=== PATIENT | female | born 1945 | race Caucasian/White ===

== ENCOUNTER → 2016-07-08 | Outpatient (REF) | payer MEDICARE ==
[~2016-07-08] MED LIST: ASPI81TA11 PO; CALC600T21 PO; COUM2.5T11 PO; EPIN0.3I6 IJ; FERR325T3 PO; INDA125TA PO; LIPI10TA PO; LUNE3TAB48 PO; MOME50SP; SKEL-29 PO; SPIR25TA2 PO; TYLE500T78 PO; VALA1TAB PO; VICO5TAB16 PO; VITA-113 OR; ZOLO100T PO
[2016-07-08 12:16] LABS: MEAN CORPUSCULAR HEMOGLOBIN 30.4 pg (27.0-33.0); MEAN CORPUSCULAR HGB CONC 32.6 g/dl (32.0-36.5); RED CELL DISTRIBUTION WIDTH 14.9 % (11.5-14.5)
[2016-07-08 13:00] LABS: ALBUMIN/GLOBULIN RATIO 1.38 (1.00-1.93); ALKALINE PHOSPHATASE 90 U/L (45-117); ALT/SGPT 19 U/L (12-78); ANION GAP 6 MEQ/L (8-16); AST/SGOT 11 U/L (15-37); BILIRUBIN,TOTAL 0.6 MG/DL (0.2-1.0); BLOOD UREA NITROGEN 23 MG/DL (7-18); CALCIUM LEVEL 10.4 MG/DL (8.8-10.2); CARBON DIOXIDE LEVEL 31 MEQ/L (21-32); CHLORIDE LEVEL 108 MEQ/L (98-107); GLOMERULAR FILTRATION RATE > 60.0 (>45); GLUCOSE, FASTING 91 MG/DL (80-110); MAGNESIUM LEVEL 2.2 MG/DL (1.8-2.4); POTASSIUM SERUM 4.3 MEQ/L (3.5-5.1); SODIUM LEVEL 145 MEQ/L (136-145); TOTAL PROTEIN 6.9 GM/DL (6.4-8.2)
[2016-07-08 14:44] LABS: EOSINOPHILS 1 % (0-5)
== END ==
LOC: M SFHCPLAZ 09:21
PROVIDERS: ATTEND Family Medicine
DX: D72.820 Lymphocytosis (symptomatic) (principal); I10 Essential (primary) hypertension; R73.01 Impaired fasting glucose; E55.9 Vitamin D deficiency, unspecified

== ENCOUNTER → 2016-10-12 | Day surgery (SDC) | payer MEDICARE, OTHER ==
[~2016-10-12] VITALS: Ht 175.3 cm; Wt 113.4 kg
[~2016-10-12] MED LIST changes: +ACETAMINOPHEN 325 MG TAB PO PRN; +BSS with VANC/TOB/EPI for EYE CASES IR ONE; +CYCLOPENTOLATE 2% OPHTH SOLN As Ordered ONE; +CYCLOPENTOLATE 2% OPHTH SOLN OS ONE; +HEALON DUET (HEALON 10MG/ML 0.55ML & HEALON ENDOCOAT 30MG/ML 0.85ML) As Ordered ONE; +KETOROLAC 0.5% OPHTH SOLN OS ONE; +LIDOCAINE 1% SDV 5 ML VIAL As Ordered ONE; +LIDOCAINE 4% INJ 5 ML AMP OS ONE; +LIDOCAINE 4% INJ 5 ML AMP OU ONE; +MIDAZOLAM INJ 2 MG/2 ML VIAL (J2250) As Ordered ONE; +MOXIFLOXACIN IN BSS 0.25MG/0.25ML INTRACAMERAL INJ (OR EYE ONLY)(J2280) As Ordered ONE; +OFLOXACIN 0.3 % (OCUFLOX) OPTH SOL 5ML As Ordered ONE; +OFLOXACIN 0.3 % (OCUFLOX) OPTH SOL 5ML OS ONE; +PHENYLEPHRINE 2.5% OPHTH SOL 2ML As Ordered ONE; +PHENYLEPHRINE 2.5% OPHTH SOL 2ML OS ONE; +POVIDONE-IODINE 5% OPHTH PREP SOL 30ML As Ordered ONE; +PROPARACAINE 0.5% OPHTH SOL 15ML OS PRN; +TIZA2CAP3 PO; +TRIAMCINOLONE PRES FR 40 MG/ML 1ML(TRIESENCE)(OR EYE ONLY)(J3300 PER 1MG) As Ordered ONE; +TRIMETHOBENZAMIDE 300 MG CAP PO PRN; +TROPICAMIDE 1% OPHTH SOLN 2 ML As Ordered ONE; +TROPICAMIDE 1% OPHTH SOLN 2 ML OS ONE; +fentaNYL 100 MCG/2 ML INJECTION (J3010) As Ordered ONE
[2016-10-12 11:20] VITALS: BP 133/71
== END | disposition home or self-care (01) ==
LOC: M SDC 08:14
PROVIDERS: ATTEND Ophthalmology
DX: H26.9 Unspecified cataract (principal); I10 Essential (primary) hypertension; E78.5 Hyperlipidemia, unspecified; F41.9 Anxiety disorder, unspecified; F32.9 Major depressive disorder, single episode, unspecified; E55.9 Vitamin D deficiency, unspecified; R73.01 Impaired fasting glucose; M17.0 Bilateral primary osteoarthritis of knee; I50.32 Chronic diastolic (congestive) heart failure; I71.2 Thoracic aortic aneurysm, without rupture; E66.9 Obesity, unspecified; G47.33 Obstructive sleep apnea (adult) (pediatric); Z91.018 Allergy to other foods; M47.816 Spondylosis without myelopathy or radiculopathy, lumbar region; Z79.899 Other long term (current) drug therapy; Z79.82 Long term (current) use of aspirin; Z88.2 Allergy status to sulfonamides
CPT/HCPCS: 66984; 67515; J2250; J2280; J3010; J3300; V2632

== ENCOUNTER → 2016-10-25 | Outpatient (CLI) | payer OTHER ==
[~2016-10-25] MED LIST changes: -ACETAMINOPHEN 325 MG TAB PO PRN; -BSS with VANC/TOB/EPI for EYE CASES IR ONE; -CYCLOPENTOLATE 2% OPHTH SOLN As Ordered ONE; -CYCLOPENTOLATE 2% OPHTH SOLN OS ONE; -HEALON DUET (HEALON 10MG/ML 0.55ML & HEALON ENDOCOAT 30MG/ML 0.85ML) As Ordered ONE; -KETOROLAC 0.5% OPHTH SOLN OS ONE; -LIDOCAINE 1% SDV 5 ML VIAL As Ordered ONE; -LIDOCAINE 4% INJ 5 ML AMP OS ONE; -LIDOCAINE 4% INJ 5 ML AMP OU ONE; -MIDAZOLAM INJ 2 MG/2 ML VIAL (J2250) As Ordered ONE; -MOXIFLOXACIN IN BSS 0.25MG/0.25ML INTRACAMERAL INJ (OR EYE ONLY)(J2280) As Ordered ONE; -OFLOXACIN 0.3 % (OCUFLOX) OPTH SOL 5ML As Ordered ONE; -OFLOXACIN 0.3 % (OCUFLOX) OPTH SOL 5ML OS ONE; -PHENYLEPHRINE 2.5% OPHTH SOL 2ML As Ordered ONE; -PHENYLEPHRINE 2.5% OPHTH SOL 2ML OS ONE; -POVIDONE-IODINE 5% OPHTH PREP SOL 30ML As Ordered ONE; -PROPARACAINE 0.5% OPHTH SOL 15ML OS PRN; -TRIAMCINOLONE PRES FR 40 MG/ML 1ML(TRIESENCE)(OR EYE ONLY)(J3300 PER 1MG) As Ordered ONE; -TRIMETHOBENZAMIDE 300 MG CAP PO PRN; -TROPICAMIDE 1% OPHTH SOLN 2 ML As Ordered ONE; -TROPICAMIDE 1% OPHTH SOLN 2 ML OS ONE; -fentaNYL 100 MCG/2 ML INJECTION (J3010) As Ordered ONE
--- NOTE | 2016-10-25 11:05 | REPMRS ---
Patient History The patient states she has not had a clinical breast exam in over a year. Patient is postmenopausal, has history of cervical cancer at age 31, and is nulliparous. No known family history of cancer. Benign excisional biopsy of the left breast, 1970. Digital Woman Screen Mammo: October 25, 2016 - Exam #: [id number] Bilateral CC and MLO view(s) were taken. Technologist: Elizabeth Sanders, Technologist Prior study comparison: November 18, 2015, digital woman screen mammo performed at [facility] to [facility]. October 29, 2014, digital woman screen mammo performed at [facility] to [facility]. FINDINGS: There are scattered fibroglandular densities. There has been no change in the appearance of the mammogram from the prior studies. There is a mild amount of residual fibroglandular tissue which is fairly symmetric. There is no interval development of dominant mass, architectural distortion, or clustered microcalcification suggestive of malignancy. ASSESSMENT: BI-RADS/ACR category 1 mammogram. Negative. Recommendation Routine screening mammogram in 1 year (for women over age 40). This mammogram was interpreted with the aid of an FDA-approved computer-aided dectection system. Electronically Signed By: Tyson García MD 10/25/16 [id number]
== END ==
LOC: M WHC 08:49
PROVIDERS: ATTEND Family Medicine
DX: Z12.31 Encounter for screening mammogram for malignant neoplasm of breast (principal)

== ENCOUNTER → 2016-10-26 | Day surgery (SDC) | payer OTHER ==
[~2016-10-26] VITALS: Ht 175.3 cm; Wt 113.4 kg
[~2016-10-26] MED LIST changes: +ACETYLCHOLINE OPHTH SOLN 1% 2ML As Ordered ONE; +BSS with VANC/TOB/EPI for EYE CASES IR ONE; +CYCLOPENTOLATE 2% OPHTH SOLN OD ONE; +D5W/0.2% SODIUM CHLORIDE 250 ML IV ONE; +HEALON DUET (HEALON 10MG/ML 0.55ML & HEALON ENDOCOAT 30MG/ML 0.85ML) As Ordered ONE; +LIDOCAINE 1% SDV 5 ML VIAL As Ordered ONE; +LIDOCAINE 4% INJ 5 ML AMP OU ONE; +LIDOCAINE W/EPINEPHRINE 1% 20ML VIAL As Ordered ONE; +MIDAZOLAM INJ 2 MG/2 ML VIAL (J2250) As Ordered ONE; +MOXIFLOXACIN IN BSS 0.25MG/0.25ML INTRACAMERAL INJ (OR EYE ONLY)(J2280) As Ordered ONE; +OFLOXACIN 0.3 % (OCUFLOX) OPTH SOL 5ML OD ONE; +PHENYLEPHRINE 2.5% OPHTH SOL 2ML OD ONE; +POVIDONE-IODINE 5% OPHTH PREP SOL 30ML As Ordered ONE; +TRIAMCINOLONE PRES FR 40 MG/ML 1ML(TRIESENCE)(OR EYE ONLY)(J3300 PER 1MG) As Ordered ONE; +TROPICAMIDE 1% OPHTH SOLN 2 ML OD ONE; +fentaNYL 100 MCG/2 ML INJECTION (J3010) As Ordered ONE
[2016-10-26 08:05] VITALS: BP 145/81
== END | disposition home or self-care (01) ==
LOC: M SDC 05:59
PROVIDERS: ATTEND Ophthalmology
DX: H26.9 Unspecified cataract (principal); I10 Essential (primary) hypertension; E78.5 Hyperlipidemia, unspecified; F32.9 Major depressive disorder, single episode, unspecified; F41.9 Anxiety disorder, unspecified; Z79.82 Long term (current) use of aspirin; Z79.899 Other long term (current) drug therapy; Z87.891 Personal history of nicotine dependence
CPT/HCPCS: 66984; J2250; J2280; J3010; J3300; V2632

== ENCOUNTER → 2016-10-28 | Outpatient (REF) | payer OTHER ==
[~2016-10-28] MED LIST changes: -ACETYLCHOLINE OPHTH SOLN 1% 2ML As Ordered ONE; -BSS with VANC/TOB/EPI for EYE CASES IR ONE; -CYCLOPENTOLATE 2% OPHTH SOLN OD ONE; -D5W/0.2% SODIUM CHLORIDE 250 ML IV ONE; -HEALON DUET (HEALON 10MG/ML 0.55ML & HEALON ENDOCOAT 30MG/ML 0.85ML) As Ordered ONE; -LIDOCAINE 1% SDV 5 ML VIAL As Ordered ONE; -LIDOCAINE 4% INJ 5 ML AMP OU ONE; -LIDOCAINE W/EPINEPHRINE 1% 20ML VIAL As Ordered ONE; -MIDAZOLAM INJ 2 MG/2 ML VIAL (J2250) As Ordered ONE; -MOXIFLOXACIN IN BSS 0.25MG/0.25ML INTRACAMERAL INJ (OR EYE ONLY)(J2280) As Ordered ONE; -OFLOXACIN 0.3 % (OCUFLOX) OPTH SOL 5ML OD ONE; -PHENYLEPHRINE 2.5% OPHTH SOL 2ML OD ONE; -POVIDONE-IODINE 5% OPHTH PREP SOL 30ML As Ordered ONE; -TRIAMCINOLONE PRES FR 40 MG/ML 1ML(TRIESENCE)(OR EYE ONLY)(J3300 PER 1MG) As Ordered ONE; -TROPICAMIDE 1% OPHTH SOLN 2 ML OD ONE; -fentaNYL 100 MCG/2 ML INJECTION (J3010) As Ordered ONE
[2016-10-28 13:28] LABS: ALBUMIN 3.7 GM/DL (3.2-5.2); ALBUMIN/GLOBULIN RATIO 1.16 (1.00-1.93); ALKALINE PHOSPHATASE 78 U/L (45-117); ALT/SGPT 17 U/L (12-78); ANION GAP 7 MEQ/L (8-16); AST/SGOT 7 U/L (15-37); BILIRUBIN,TOTAL 0.6 MG/DL (0.2-1.0); BLOOD UREA NITROGEN 20 MG/DL (7-18); CALCIUM LEVEL 10.2 MG/DL (8.8-10.2); CARBON DIOXIDE LEVEL 30 MEQ/L (21-32); CHLORIDE LEVEL 104 MEQ/L (98-107); CHOLESTEROL LEVEL 139 MG/DL (<200); CREATININE FOR GFR 0.75 MG/DL (0.55-1.02); GLOMERULAR FILTRATION RATE > 60.0 (>45); GLUCOSE, FASTING 58 MG/DL (80-110); POTASSIUM SERUM 3.8 MEQ/L (3.5-5.1); SODIUM LEVEL 141 MEQ/L (136-145); TOTAL PROTEIN 6.9 GM/DL (6.4-8.2); TRIGLYCERIDES LEVEL 110 MG/DL (<150)
== END ==
LOC: M SFHCPLAZ 10:04
PROVIDERS: ATTEND Family Medicine
DX: E78.5 Hyperlipidemia, unspecified (principal); E55.9 Vitamin D deficiency, unspecified

== ENCOUNTER → 2016-10-29 | Outpatient (CLI) | payer OTHER ==
[~2016-10-29] MED LIST changes: +ISOVUE-370 76% 100ML VIAL (Q9967) As Ordered ONE
--- NOTE | 2016-10-30 08:42 | REP ---
CT CHEST WITH CONTRAST: HISTORY: Descending thoracic aortic aneurysm. COMPARISON: None. CONTRAST: 100 mL Isovue-370. The maximal AP dimension of the ascending aorta is 4.9 cm. The descending thoracic aorta is within normal limits. Calcific atherosclerotic changes are present. There is no mediastinal or hilar adenopathy. There are no pleural or pericardial effusions. There is a large and in fact huge hiatal hernia. The imaged upper abdomen shows a partially imaged abdominal aortic aneurysm with previous surgical intervention. The imaged osseous structures are within normal limits for the patient's age. Evaluation of the lung chong show curvilinear densities in the lung bases consistent with subsegmental atelectatic changes. There is also evidence of mild biapical pleural scarring. No spiculated lesions or significant nodules are present. IMPRESSION: There is ectasia of the ascending thoracic aorta as described above. It should be remembered that the ascending aorta has a wide variation in normalcy and this needs to be correlated clinically with appropriate followup. Large and in fact huge hiatal hernia. Other findings as described above. Signed by Sergio Hager DO 10/30/2016 09:21 A
== END ==
LOC: M RAD 14:57
PROVIDERS: ATTEND Family Medicine
DX: I71.2 Thoracic aortic aneurysm, without rupture (principal)
CPT/HCPCS: 71260; Q9967

== ENCOUNTER → 2016-11-12 | Outpatient (REF) | payer OTHER ==
[~2016-11-12] MED LIST changes: -ISOVUE-370 76% 100ML VIAL (Q9967) As Ordered ONE
[2016-11-12 13:45] LABS: MEAN CORPUSCULAR HEMOGLOBIN 32.3 pg (27.0-33.0); MEAN CORPUSCULAR HGB CONC 33.2 g/dl (32.0-36.5); MEAN CORPUSCULAR VOLUME 97.5 fl (80.0-96.0); RED CELL DISTRIBUTION WIDTH 13.5 % (11.5-14.5); WHITE BLOOD COUNT 6.9 K/mm3 (4.0-10.0)
[2016-11-12 13:53] LABS: ALBUMIN 3.7 GM/DL (3.2-5.2); ALBUMIN/GLOBULIN RATIO 1.16 (1.00-1.93); ALKALINE PHOSPHATASE 71 U/L (45-117); ALT/SGPT 17 U/L (12-78); ANION GAP 8 MEQ/L (8-16); AST/SGOT 9 U/L (15-37); BILIRUBIN,TOTAL 0.6 MG/DL (0.2-1.0); BLOOD UREA NITROGEN 23 MG/DL (7-18); CARBON DIOXIDE LEVEL 28 MEQ/L (21-32); CHLORIDE LEVEL 105 MEQ/L (98-107); CREATININE FOR GFR 0.77 MG/DL (0.55-1.02); GLOMERULAR FILTRATION RATE > 60.0 (>39); GLUCOSE, FASTING 77 MG/DL (83-110); MAGNESIUM LEVEL 2.4 MG/DL (1.8-2.4); SODIUM LEVEL 141 MEQ/L (136-145); TOTAL PROTEIN 6.9 GM/DL (6.4-8.2)
[2016-11-12 14:40] LABS: BANDS 1 % (< 11); EOSINOPHILS 1 % (0-5)
[2016-11-12 14:41] LABS: ANISOCYTOSIS 1+
== END ==
LOC: M SFHCPLAZ 10:49
PROVIDERS: ATTEND Family Medicine
DX: D72.820 Lymphocytosis (symptomatic) (principal); I10 Essential (primary) hypertension; R73.01 Impaired fasting glucose; E55.9 Vitamin D deficiency, unspecified

== ENCOUNTER → 2017-03-03 | Outpatient (REF) | payer OTHER ==
[~2017-03-03] MED LIST changes: +ASPI-101 PO; -ASPI81TA11 PO; +ASPI81TAEC PO; +ATOR1TAB21 PO; +B-1210009 PO; +CALC1TAB30 PO; -CALC600T21 PO; +CALC600T60 PO; +CLOP75TA2 PO; -COUM2.5T11 PO; +COUM2.5T17 PO; -EPIN0.3I6 IJ; +EPIN0.3I6 INJ; +ESZO1TAB3 PO; +LUNE3TAB36 PO; -LUNE3TAB48 PO; -SKEL-29 PO; +SKEL800T97 PO; -VALA1TAB PO; +VALA1TAB2 PO; +VITA1CAP40 PO
[2017-03-03 13:22] LABS: MEAN CORPUSCULAR HEMOGLOBIN 32.5 pg (27.0-33.0); MEAN CORPUSCULAR HGB CONC 34.4 g/dl (32.0-36.5); MEAN CORPUSCULAR VOLUME 94.4 fl (80.0-96.0); RED CELL DISTRIBUTION WIDTH 13.1 % (11.5-14.5); WHITE BLOOD COUNT 4.1 K/mm3 (4.0-10.0)
[2017-03-03 13:33] LABS: ALBUMIN 3.9 GM/DL (3.2-5.2); ALBUMIN/GLOBULIN RATIO 1.22 (1.00-1.93); ALKALINE PHOSPHATASE 81 U/L (45-117); ALT/SGPT 23 U/L (12-78); ANION GAP 8 MEQ/L (8-16); AST/SGOT 11 U/L (15-37); BILIRUBIN,TOTAL 0.5 MG/DL (0.2-1.0); BLOOD UREA NITROGEN 18 MG/DL (7-18); CALCIUM LEVEL 10.4 MG/DL (8.8-10.2); CARBON DIOXIDE LEVEL 29 MEQ/L (21-32); CHLORIDE LEVEL 108 MEQ/L (98-107); CHOLESTEROL LEVEL 145 MG/DL (<200); CREATININE FOR GFR 0.74 MG/DL (0.55-1.02); FERRITIN 61 NG/ML (8-252); GLOMERULAR FILTRATION RATE > 60.0 (>39); GLUCOSE, FASTING 89 MG/DL (83-110); MAGNESIUM LEVEL 2.2 MG/DL (1.8-2.4); PERCENT SATURATION 18.3 % (13.2-45.0); POTASSIUM SERUM 4.1 MEQ/L (3.5-5.1); SODIUM LEVEL 145 MEQ/L (136-145); TOTAL IRON BINDING CAPACITY 334 UG/DL (250-450); TOTAL PROTEIN 7.1 GM/DL (6.4-8.2); TRIGLYCERIDES LEVEL 139 MG/DL (<150)
[2017-03-03 14:15] LABS: EOSINOPHILS 3 % (0-5)
== END ==
LOC: M SFHCPLAZ 08:15
PROVIDERS: ATTEND Family Medicine
DX: D72.820 Lymphocytosis (symptomatic) (principal); E83.52 Hypercalcemia; D50.9 Iron deficiency anemia, unspecified; E78.5 Hyperlipidemia, unspecified

== ENCOUNTER 2017-03-08 18:50 | Observation (INO) | payer BC, OTHER ==
[~2017-03-08] VITALS: Ht 175.3 cm; Wt 113.1 kg
[~2017-03-08 18:50] MED LIST changes: -ASPI81TAEC PO; -ATOR1TAB21 PO; -B-1210009 PO; -CALC1TAB30 PO; -CLOP75TA2 PO; -ESZO1TAB3 PO; -VITA1CAP40 PO
[2017-03-08 19:39] LABS: BASO % 0.4 % (0.0-1.0); EOS # 0.1 K/mm3 (0.0-0.50); LARGE UNSTAINED CELL # 0.1 K/mm3 (0.0-0.4); LARGE UNSTAINED CELL % 2.4 % (0.0-4.0); LYMPH # 1.4 K/mm3 (1.5-4.5); MEAN CORPUSCULAR HEMOGLOBIN 31.4 pg (27.0-33.0); MEAN CORPUSCULAR HGB CONC 33.4 g/dl (32.0-36.5); MEAN CORPUSCULAR VOLUME 94.1 fl (80.0-96.0); MONO # 0.3 K/mm3 (0.0-0.8); MONO % 5.7 % (0.0-5.0); NEUTROPHILS # 2.7 K/mm3 (1.8-7.7); NEUTROPHILS % 60.5 % (36.0-66.0); PLATELET COUNT, AUTOMATED 190 k/mm3 (150-450); RED CELL DISTRIBUTION WIDTH 13.3 % (11.5-14.5); WHITE BLOOD COUNT 4.4 K/mm3 (4.0-10.0)
--- NOTE | 2017-03-08 19:42 | REP ---
Clinical: Altered mental status. Cerebrovascular accident. Comparison: 11/27/2010 . Findings: Age-related atrophy and microvascular ischemic changes are appreciated. The ventricles and sulci are symmetric. García-white differentiation is maintained. There is no evidence for acute intracranial hemorrhage, mass/mass effect, pathology or infarction. No extra-axial fluid collection. Calvarium is intact. Paranasal sinuses and mastoid air cells are clear. Impression: Age related atrophy and microvascular ischemic changes. No acute intracranial hemorrhage, infarction, or mass/mass effect. Signed by Kapil Douglass MD 03/08/2017 07:34 P
[2017-03-08 19:45] LABS: INR 1.02
--- NOTE | 2017-03-08 19:48 | REP ---
Clinical: Altered mental status. Comparison: 01/21/2016. Findings: Cardiomegaly is appreciated along with large hiatal hernia. Left lower lobe opacity cannot be excluded. Lung chong are otherwise stable and demonstrate chronic changes. No pneumothorax. Skeletal structures intact. Impression: Cardiomegaly and large hiatal hernia. Signed by Kapil Douglass MD 03/08/2017 07:40 P
[2017-03-08 20:01] LABS: ANION GAP 8 MEQ/L (8-16); BLOOD UREA NITROGEN 20 MG/DL (7-18); CARBON DIOXIDE LEVEL 28 MEQ/L (21-32); CHLORIDE LEVEL 108 MEQ/L (98-107); GLOMERULAR FILTRATION RATE > 60.0 (>39); GLUCOSE, FASTING 118 MG/DL (83-110); POTASSIUM SERUM 3.6 MEQ/L (3.5-5.1); SODIUM LEVEL 144 MEQ/L (136-145)
[2017-03-08] MEDS ORDERED: LABETALOL HCL 100 MG/20 ML VIAL IV STA (20:21)
[2017-03-08 20:27] VITALS: BP 172/110
[2017-03-08] MEDS ORDERED: CALC1TAB30 PO (20:56)
[2017-03-08] MEDS ORDERED: B-1210009 PO (20:56)
[2017-03-08] MEDS ORDERED: VITA1CAP40 PO (20:56)
[2017-03-08] MEDS ORDERED: ASPI81TAEC PO (20:56)
[2017-03-08] MEDS ORDERED: ESZO1TAB3 PO (20:56)
[2017-03-08] MEDS ORDERED: ASPIRIN 325 MG TAB PO ONE (21:00)
[2017-03-08] MEDS ORDERED: LORazepam 1 MG TAB PO STA (21:40)
[2017-03-08] MEDS ORDERED: **hydrALAZINE** 10 MG TAB PO PRN (22:00)
[2017-03-08] MEDS ORDERED: LORazepam 2 MG/ML VIAL (J2060) IV PRN (22:15)
--- NOTE | 2017-03-08 22:54 | HPE ---
DATE OF ADMISSION: 03/08/2017 PRIMARY CARE PROVIDER: Antoine Morgan MD HISTORY OF PRESENT ILLNESS: This patient is a 71-year-old female with a past medical history significant for hypertension, hypercholesterolemia, anxiety, and sleep apnea on continuous positive airway pressure (CPAP), who presented to [facility] on 03/08/2017, with acute onset of right-sided weakness. At approximately 6:15 p.m., while patient was feeding her dog, patient experienced acute onset of complete right-sided numbness and weakness. Patient sat on a chair and rested for 30 minutes and symptoms resolved. patient was brought to [facility] for further evaluation. While patient was in the emergency room, approximately 2 hours from the first episode, patient experienced another acute onset of right lower extremity weakness without numbness. That episode lasted approximately 10-15 minutes and symptoms resolved spontaneously. While patient was in the emergency room, patient was found to have severe significant hypertension with systolic greater than 180 and diastolic greater than 110. One dose of IV labetalol was given. Emergency room physician also contacted [facility] for stroke evaluation and one dose of aspirin 325 mg was given per recommendation. Hospitalist team was thencalled for admission. Patient stated she also complained of bilateral frontal dull like headache that started after 6:15 p.m. without visual or auditory changes and symptoms started to improve once patient arrived in the emergency room. Denies any associated symptoms. ALLERGIES: SULFA, NONSTEROIDAL ANTI-INFLAMMATORY DRUGS (NSAIDs). HOME MEDICATIONS: - aspirin 81 mg by mouth daily - Lipitor 10 mg by mouth nightly - vitamin B12 1000 mcg by mouth daily - vitamin D 50,000 units by mouth as directed - ferrous sulfate 325 mg by mouth daily - indapamide 1.25 mg by mouth daily - Zoloft 100 mg by mouth nightly - spironolactone 25 mg by mouth daily PAST MEDICAL HISTORY: 1. Symptomatic left knee osteoarthritis. 2. Hypertension. 3. Hypercholesterolemia. 4. Anxiety. 5. Sleep apnea, on CPAP. PAST SURGICAL HISTORY: 1. Right total knee arthroplasty in January 2007. 2. Total abdominal hysterectomy with bilateral salpingo-oophorectomy (KODI BSO) in 1996. 3. Abdominal aortic aneurysm repair in October 2014. SOCIAL HISTORY: Former smoker, quit many years ago. Drinks alcohol intermittently. Denies recreational drug use. REVIEW OF SYSTEMS: GENERAL: No fever, no chills. HEENT: No vision changes, no auditory changes. CARDIOVASCULAR: Persistent elevated high blood pressure without any chest pain or palpitations. At baseline, patient stated her blood pressure is normally well controlled. Patient sees Dr. Pastor in the outpatient setting for her blood pressure control. RESPIRATORY: No shortness of breath, no cough, no sputum production. GASTROINTESTINAL (GI): No nausea, no vomiting, no abdominal pain, no diarrhea. MUSCULOSKELETAL: Osteoarthritis of the bilateral knees. Currently not any joint pain or muscle pain. NEUROLOGICAL: Acute onset of right-sided weakness and numbness that occurred around 6:15 p.m. today, resolved within 30 minutes, and there was another acute episode of right lower leg weakness, resolved in 10-15 minutes. OBJECTIVE: VITAL SIGNS: Temperature is 98.1, pulse is 68, respirations 16, blood pressure 170/120, pulse oximetry 95% in room air. GENERAL: No sign of acute distress, anxious, alert and oriented times three. HEENT: Normocephalic, atraumatic. Extraocular motors grossly intact. CARDIOVASCULAR: Positive S1, S2, regular rate. LUNGS: Clear to auscultation bilaterally. ABDOMEN: Soft, nontender, nondistended. Bowel sounds present. No rebound, no guarding. EXTREMITIES: No edema. No sign of cyanosis. NEUROLOGICAL: Sensation to fine touch, gross motor strength 5/5. LABORATORY DATA: WBC 4.4, hemoglobin 15.1, hematocrit 45.3, platelet count 190. Sodium 144, potassium 3.6, chloride 108, carbon dioxide 28, BUN 20, creatinine 0.9, GFR greater than 60, fasting glucose 118, calcium 10, total CK 117, troponin I is less than 0.02. IMAGING STUDIES: CT of the head without contrast shows age-related atrophy and microvascular ischemic changes. No acute intracranial hemorrhage, infarction, mass or mass effect. ASSESSMENT AND PLAN: 1. Acute right-sided numbness and weakness. Patient was admitted to the progressive care unit (PCU) under observation status. Differential includes transient ischemic attack (TIA) versus hypertensive emergency. Patient had a negative CT. Will follow with MRI and MRA of the brain. The emergency room physician has contacted [facility] for acute stroke evaluation and patient was given one dose of aspirin per recommendation. Will follow with imaging report. For the patient's blood pressure, will continue with patient's blood pressure medication. Will start hydralazine with holding parameters. Patient was also given one dose of Ativan to control her anxiety. 2. Hypertension. At home, patient has been taking the thiazide diuretic and spironolactone. Currently, patient had hypertensive urgency/emergency. Will give hydralazine with holding parameters. If patient's anxiety is under control and patient continues to have persistent hypertension, we will change the blood pressure medication accordingly. 3. Hypercholesterolemia. Continue on Lipitor. 4. Anxiety. On Zoloft and patient has as needed Ativan. 5. Sleep apnea. On continuous positive airway pressure (CPAP). Patient will be on obstructive sleep apnea (JEANMARIE) protocol. Patient may use her own continuous positive airway pressure (CPAP). 6. Deep venous thrombosis (DVT) prophylaxis. On heparin. MTDD
[2017-03-09] VITALS (7 sets, daily range): BP systolic 120–141; BP diastolic 64–87
[2017-03-09] MEDS: HEPARIN SOD (PORCINE) 5000 UNITS/ML VIAL SC SCH ×4 (01:09→21:39)
[2017-03-09] MEDS: SERTRALINE 100 MG TAB PO SCH ×2 (01:10→21:39)
[2017-03-09] MEDS: ATORVASTATIN 10 MG TAB PO SCH ×2 (01:10→21:39)
[2017-03-09 07:24] LABS: MEAN CORPUSCULAR HEMOGLOBIN 31.5 pg (27.0-33.0); MEAN CORPUSCULAR HGB CONC 33.2 g/dl (32.0-36.5); MEAN CORPUSCULAR VOLUME 94.9 fl (80.0-96.0); RED CELL DISTRIBUTION WIDTH 13.5 % (11.5-14.5); WHITE BLOOD COUNT 4.7 K/mm3 (4.0-10.0)
[2017-03-09 07:49] LABS: ANION GAP 8 MEQ/L (8-16); BLOOD UREA NITROGEN 20 MG/DL (7-18); CALCIUM LEVEL 9.8 MG/DL (8.8-10.2); CARBON DIOXIDE LEVEL 27 MEQ/L (21-32); CHLORIDE LEVEL 108 MEQ/L (98-107); CREATININE FOR GFR 0.71 MG/DL (0.55-1.02); GLOMERULAR FILTRATION RATE > 60.0 (>39); GLUCOSE, FASTING 97 MG/DL (83-110); POTASSIUM SERUM 3.8 MEQ/L (3.5-5.1); SODIUM LEVEL 143 MEQ/L (136-145)
[2017-03-09] MEDS: FERROUS SULFATE 325MG TAB PO SCH (08:34)
[2017-03-09] MEDS: CYANOCOBALAMIN 500 MCG TAB PO SCH (08:34)
[2017-03-09] MEDS: INDAPAMIDE 1.25MG TABLET PO SCH (08:35)
[2017-03-09] MEDS: SPIRONOLACTONE 25 MG TAB PO SCH (08:35)
[2017-03-09] MEDS ORDERED: ASPIRIN 81 MG ENTERIC TAB PO SCH (09:00)
--- NOTE | 2017-03-09 12:20 | REP ---
MRA BRAIN WITHOUT CONTRAST: 03/09/2017. COMPARISON: CT brain 03/08/2017, MRI brain 03/09/2017. CLINICAL HISTORY: TIA/CVA symptoms. TECHNIQUE: 3-D [id number] gradient echo images with MIP reformatting and rotational display of the volume acquisitions about the longitudinal and horizontal axis of the brain. All source images are reviewed. FINDINGS: A dominant left vertebral artery contribution of the basilar artery is noted as anatomic variation. There is a mild stenosis in the mid basilar artery without significant stenosis or aneurysm elsewhere in the basilar. Both posterior cerebral arteries show origin from the basilar tip. They have symmetric supply to the posterior fossa. The right and left internal carotid arteries through the skull base to the carotid siphons are intact. There is some minor atherosclerotic disease in the left greater than right internal carotid in the carotid siphons. No stenosis or aneurysm there. Supraclinoid carotids were unremarkable. The right A1 and M1 segments and the anterior and middle cerebral artery branches visible on the right are unremarkable. The left supraclinoid carotid with A1 and M1 segments and the anterior and middle cerebral artery branches visible peripherally were also unremarkable. I do not see aneurysm or vessel cutoff. No vascular malformation. IMPRESSION: 1. Minor atherosclerotic disease in the bilateral carotid siphons, but no stenosis, aneurysm, vessel cutoff or vascular malformation. 2. Dominant left vertebral artery contribution to the basilar artery with some mild mid course basilar artery stenosis without aneurysm or other focal basilar artery finding. Posterior circulation symmetric and otherwise unremarkable. Signed by Antione Smiley MD 03/09/2017 04:18 P
[2017-03-09] MEDS: ACETAMINOPHEN TAB 650MG DOSE (2X325MG) PO PRN (12:28)
--- NOTE | 2017-03-09 12:38 | REP ---
MRI BRAIN WITHOUT CONTRAST: 03/09/2017. CLINICAL HISTORY: TIA/CVA symptoms. TECHNIQUE: Sagittal T1, axial T1, T2, FLAIR, gradient-echo and diffusion-weighted images with ADC mapping sequences provided. COMPARISON: MRA brain today, CT brain 03/08/2017, 11/27/2010, MRI brain 04/18/2009. FINDINGS: Lateral ventricles midline, symmetric and unchanged in size. I do not see any significant atrophy. Third and fourth ventricles were grossly intact. Basal ganglia symmetric with a few dilated perineural spaces of Virchow. There are scattered punctate subcortical and deep central white matter foci in the bilateral cerebral hemispheres as well. Some periventricular changes in these suggesting some mild chronic small vessel white matter changes. I do not see a vascular territory infarct, intracranial hemorrhage, mass or mass effect. On the diffusion weighted images and ADC mapping sequence, there is a hyperintense focus. Diffusion weighted images and ADC mapping sequences show no evidence of restricted water diffusion or acute ischemia. That shows bright signal on the diffusion and dark signal on the ADC mapping sequence in the high posterior right frontal subcortical region best seen on image 25 of the diffusion and ADC map sequences. I do not see other similar signal abnormalities. There are hyperintense T2 foci in the bilateral cerebral peduncle similar to the 2008 study representing some chronic white matter change in the brainstem. Gradient-echo images demonstrate no evidence of hemorrhage. The lindo-white junction differentiation was maintained. Cortical stripe preserved. There is no vascular territory infarct, hemorrhage, mass or mass effect. No mass, mass effect or edema. The cerebellum show a few punctate hyperintense T2 foci suggesting old ischemic change. No acute ischemia on the diffusion images there. Basal cisterns are intact. Seventh/eighth cranial nerve complexes symmetric and normal. Mastoids intact. Visualized sinuses show bilateral ethmoid sinus mucosal disease. The frontal, sphenoid and maxillary sinuses are clear. Orbits and contents symmetric and normal. The corpus callosum, optic chiasm and pituitary are unremarkable. IMPRESSION: 1. There are chronic small vessel white matter ischemic changes in subcortical white matter as described but there is also a small lacunar infarct, presumably acute, based on the hyperintense diffusion and dark signal on ADC mapping sequence at the subcortical region of the high posterior left frontal lobe paramedian region. No bleed. No vascular territory infarct, mass, mass effect, edema or other acute finding. 2. There are chronic changes with hyperintense T2 signal foci in the cerebral peduncles as well as a few in the cerebellar hemisphere suggesting old ischemic change. Signed by Antione Smiley MD 03/09/2017 04:18 P
--- NOTE | 2017-03-09 16:10 | IPNPDOC ---
Subjective Date Seen The patient was seen on 03/09/17. Subjective Chief Complaint/HPI The patient is a 71-year-old female admitted with a reason for visit of Hypertensive Urgency,Transient Ischemic Attack. Events since last encounter Patient states she feels back to normal this afternoon. She denies any acute complaints. Constitutional: Denies: Chills, Fever Eyes: Denies: Pain, Vision change ENT: Denies: Head Aches Skin: Denies: Rash Pulmonary: Denies: Dyspnea, Cough Cardiovascular: Denies: Chest Pain, Palpitations, Lt Headedness Gastrointestinal: Denies: Nausea, Vomiting, Abdominal Pain Genitourinary: Denies: Dysuria Neurological: Denies: Weakness, Numbness, Change in speech, Confusion Objective Physical Examination General Exam: Positive: Alert, Cooperative, No Acute Distress Eye Exam: Positive: PERRLA ENT Exam: Positive: Atraumatic, Mucous membr. moist/pink Chest Exam: Positive: Clear to auscultation, Normal air movement Heart Exam: Positive: Rate Normal, Regular Rhythm, Normal S1, Normal S2 Abdomen Exam: Positive: Normal bowel sounds, Soft, Negative: Tenderness Extremity Exam: Negative: Edema Skin Exam: Positive: Nl turgor and temperature, Negative: Rash Neuro Exam: Positive: Normal Speech, Strength at 5/5 X4 ext, Normal Tone, Sensation Intact, Cranial Nerves 3-12 NL Psych Exam: Positive: Mental status NL, Mood NL, Oriented x 3 Assessment /Plan Problems (1) TIA (transient ischemic attack) Status: Acute Response to Treatment: Stable Problem Text: Neurologic symptoms resolved rapidly and Neurologic exam is normal today. - MRI done yesterday showed "Small lacunar infarct in subcortical region of high posterior left frontal lobe paramedian region" and "chronic small vessel white matter ischemic changes"; MRA was unremarkable. - Patient was previously taking aspirin 81 mg daily and she tolerated this well without dyspepsia. Therefore, I recommended increasing aspirin to 325 mg daily. I also advised patient that Dr. Morgan (her PCP) may or may not wish to exchange this for Plavix or add Plavix in the future. - Monitor on telemetry overnight; likely discharge tomorrow (2) Hypertension Status: Chronic Response to Treatment: Stable Problem Text: Patient is currently on her home indapamide and spironolactone; hydralazine PRN was added upon admission but she has not required this since admission. (3) Anxiety Status: Chronic Response to Treatment: Stable Problem Text: Continue home sertraline. Lorazepam PRN was added upon admission but she has not needed this and did not appear anxious today upon exam. (4) Hyperlipidemia Status: Chronic Response to Treatment: Stable Problem Text: Continue lipitor (5) JEANMARIE (obstructive sleep apnea) Status: Chronic Response to Treatment: Stable Problem Text: Continue CPAP Plan/VTE VTE Prophylaxis Ordered?: Yes (heparin) VS, I&O, 24H, Fishbone Vital Signs/I&O Vital Signs Date Time Temp Pulse Resp B/P (MAP) Pulse Ox O2 Delivery O2 Flow Rate FiO2 03/09/17 12:00 96.9 58 18 130/64 (86) 96 Room Air 03/09/17 08:00 2.0 I&O- Last 24 Hours up to 6 AM 03/09/17 06:00 Intake Total 240 ml Output Total 1350 ml Balance -1110 ml Laboratory Data 24H LABS Laboratory Tests 2 03/08/17 19:21: White Blood Count 4.4, Red Blood Count 4.82, Hemoglobin 15.1, Hematocrit 45.3, Mean Corpuscular Volume 94.1, Mean Corpuscular Hemoglobin 31.4, Mean Corpuscular Hemoglobin Concent 33.4, Red Cell Distribution Width 13.3, Platelet Count 190, Neutrophils (%) (Auto) 60.5, Lymphocytes (%) (Auto) 28.0, Monocytes ( %) (Auto) 5.7H, Eosinophils (%) (Auto) 3.0, Basophils (%) (Auto) 0.4, Neutrophils # (Auto) 2.7, Lymphocytes # (Auto) 1.4L, Monocytes # (Auto) 0.3, Eosinophils # (Auto) 0.1, Basophils # (Auto) 0.0, Large Unclassified Cells % 2.4 , Large Unclassified Cells # 0.1, Prothrombin Time 13.5, Prothromb Time International Ratio 1.02, Activated Partial Thromboplast Time 23.6L, Anion Gap 8 , Glomerular Filtration Rate > 60.0, Blood Urea Nitrogen 20H, Creatinine 0.90, Sodium Level 144, Potassium Level 3.6, Chloride Level 108H, Carbon Dioxide Level 28, Calcium Level 10.0, Total Creatine Kinase 117, Creatine Kinase MB 2.6 , Creatine Kinase MB Relative Index 2.22, Troponin I < 0.02 03/08/17 19:44: Bedside Glucose (Misc Panel) 112H 03/09/17 07:00: Anion Gap 8, Glomerular Filtration Rate > 60.0, Blood Urea Nitrogen 20H, Creatinine 0.71, Sodium Level 143, Potassium Level 3.8, Chloride Level 108H, Carbon Dioxide Level 27, Calcium Level 9.8 CBC/BMP Laboratory Tests 03/08/17 19:21 Red Blood Count 4.82, Mean Corpuscular Volume 94.1, Mean Corpuscular Hemoglobin 31.4, Mean Corpuscular Hemoglobin Concent 33.4, Red Cell Distribution Width 13.3 , Neutrophils (%) (Auto) 60.5, Lymphocytes (%) (Auto) 28.0, Monocytes (%) (Auto ) 5.7 H, Eosinophils (%) (Auto) 3.0, Basophils (%) (Auto) 0.4, Neutrophils # ( Auto) 2.7, Lymphocytes # (Auto) 1.4 L, Monocytes # (Auto) 0.3, Eosinophils # ( Auto) 0.1, Basophils # (Auto) 0.0, Calcium Level 10.0, Total Creatine Kinase 117 03/09/17 07:00 Red Blood Count 4.52, Mean Corpuscular Volume 94.9, Mean Corpuscular Hemoglobin 31.5, Mean Corpuscular Hemoglobin Concent 33.2, Red Cell Distribution Width 13.5 , Calcium Level 9.8 MARLEEN LOPES MD Mar 09, 2017 16:10
[2017-03-10 03:58] VITALS: BP 150/88
[2017-03-10 05:30] LABS: MEAN CORPUSCULAR HEMOGLOBIN 32.1 pg (27.0-33.0); MEAN CORPUSCULAR HGB CONC 33.9 g/dl (32.0-36.5); MEAN CORPUSCULAR VOLUME 94.5 fl (80.0-96.0); RED CELL DISTRIBUTION WIDTH 13.2 % (11.5-14.5); WHITE BLOOD COUNT 4.5 K/mm3 (4.0-10.0)
[2017-03-10] MEDS: HEPARIN SOD (PORCINE) 5000 UNITS/ML VIAL SC SCH ×2 (05:32→14:46)
[2017-03-10] MEDS: ACETAMINOPHEN TAB 650MG DOSE (2X325MG) PO PRN (05:35)
[2017-03-10 05:43] LABS: ANION GAP 7 MEQ/L (8-16); BLOOD UREA NITROGEN 17 MG/DL (7-18); CALCIUM LEVEL 10.1 MG/DL (8.8-10.2); CARBON DIOXIDE LEVEL 28 MEQ/L (21-32); CHLORIDE LEVEL 108 MEQ/L (98-107); CREATININE FOR GFR 0.75 MG/DL (0.55-1.02); GLOMERULAR FILTRATION RATE > 60.0 (>39); GLUCOSE, FASTING 103 MG/DL (83-110); SODIUM LEVEL 143 MEQ/L (136-145)
--- NOTE | 2017-03-10 07:15 | ECGEPIP ---
Stationary ECG Study [facility] - ED Test Date: 2017-03-08 Pat Name: KAYLEN DAVIS Department: Room: [place] [address] Gender: F [employer]: mr GRB: 1945 Requested By: ALDAIR Eller Order Number: [id number] Reading MD: Nicki Dc Measurements Intervals [place] Rate: 87 P: 201 AR: 104 QRS: -54 QRSD: 99 T: 59 QT: 361 QTc: 436 Interpretive Statements SINUS RHYTHM WITH SHORT AR INTERVAL WITH OCCASIONAL SUPRAVENTRICULAR PREMATURE COMPLEXES INCOMPLETE RIGHT BUNDLE BRANCH BLOCK LEFT ANTERIOR FASCICULAR BLOCK MINIMAL ST DEPRESSION CLINICAL CORRELATION COMPARISON 01/21/16 Electronically Signed On 03-10-2017 7:15:11 EDT by Nicki Dc
[2017-03-10 08:00] VITALS: BP 114/72
[2017-03-10] MEDS: FERROUS SULFATE 325MG TAB PO SCH (08:58)
[2017-03-10] MEDS: SPIRONOLACTONE 25 MG TAB PO SCH (08:58)
[2017-03-10] MEDS: INDAPAMIDE 1.25MG TABLET PO SCH (08:58)
[2017-03-10] MEDS: CYANOCOBALAMIN 500 MCG TAB PO SCH (08:58)
[2017-03-10] MEDS ORDERED: ASPIRIN 325 MG TAB PO SCH (09:00)
[2017-03-10] MEDS ORDERED: CLOPIDOGREL 75 MG TAB PO SCH (09:00)
[2017-03-10] MEDS ORDERED: ATOR1TAB21 PO (11:09)
[2017-03-10] MEDS ORDERED: CLOP75TA2 PO (11:09)
--- NOTE | 2017-03-10 11:33 | DSES ---
DATE OF ADMISSION: 03/08/2017 DATE OF DISCHARGE: 03/10/2017 PRIMARY CARE PHYSICIAN: Antoine Morgan MD HISTORY OF PRESENT ILLNESS: 71-year-old female with a past medical history significant for hypertension, hypercholesterolemia, anxiety and sleep apnea on CPAP who presented to [facility] with acute onset of right sided weakness. While the patient was in the emergency department, approximately 2 hours from her first episode, she experience another acute onset of right lower extremity weakness without numbness. This episode lasted approximately 10-15 minutes and symptoms resolved spontaneously. The patient was noted to have significantly elevated blood pressure, systolic greater than 180 and a diastolic greater than 110. She was given one dose of IV labetalol as well as aspirin 325 mg per [facility] for stroke evaluation. The patient was admitted to the family medicine service, was kept in progressive care unit (PCU) status with monitoring. HOSPITAL COURSE: The patient has had no cardiac arrhythmias during her hospitalization. Labs have remained stable. She is status post MRI of the brain, which proves chronic small vessel matter ischemic changes and a small lacunar infarct. The patient has no residual deficits. She is alert and oriented times three. She is able to ambulate to the bathroom on her own, brush her teeth, brush her hair and care for herself. The patient's blood pressures have remained stable without need for any IV labetalol. Throughout her hospitalization she has remained on her home dosing antihypertensives and has tolerated that well. ASSESSMENT: 1. Small lacunar infarct with right lower extremity weakness. 2. Hypertensive urgency. SECONDARY DIAGNOSES: Include: 1. Hypercholesterolemia. 2. Anxiety. 3. Sleep apnea. PLAN: Patient will be discharged to home on a 2 gram sodium diet. She will followup with primary care physician, Dr. Morgan or Aleyda Ayala within the next 5-7 days. She will have a carotid ultrasound completed prior to her discharge and any abnormalities will be followed up by primary care physician. MEDICATIONS: Are as follows: - atorvastatin 80 mg one by mouth daily - Plavix 75 mg one by mouth daily - vitamin B12 1000 mcg by mouth daily - epinephrine injection as needed for anaphylaxis - vitamin D 50,000 international units by mouth every other Tuesday - eszopiclone 3 mg by mouth at bedtime as needed for sleep - ferrous sulfate 325 mg by mouth daily - indapamide 1.25 mg by mouth daily - sertraline 100 mg by mouth at bedtime - spironolactone 25 mg by mouth daily - tizanidine 2 mg by mouth twice a day as needed for muscle spasms - valacyclovir 1 gram by mouth every 12 hours as needed for pain The patient is discharged in stable and satisfactory condition with no further questions at the time of discharge.
[2017-03-10 11:46] VITALS: BP 126/82
[2017-03-10] MEDS ORDERED: INFLUENZA VIRUS VACCINE HIGH DOSE 0.5 ML SYRINGE (90662) IM ONE (12:15)
--- NOTE | 2017-03-10 14:42 | REP ---
Bilateral carotid artery duplex ultrasound: Peak flow velocity analysis: RIGHT LEFT ICA. Peak flow velocity cm/sec 25 30 ICA Diastolic flow velocity cm/sec 10 14 ICA/CCA Ratio 0.43 0.19 ECA Peak flow velocity cm/sec 57 31 CCA Peak flow velocity cm/sec 58 157 There is intimal thickening in the distal common carotid arteries, bulbs and internal carotid and external carotid arteries. No focal stenoses are identified. The peak flow velocities in the right CCA, bilateral ECA and bilateral ICA appear low. This is of uncertain significance. However, consideration might be given to carotid CTA or MRA for evaluation of the aortic arch and proximal common carotid arteries. There is antegrade flow in the vertebral arteries bilaterally. Signed by Tyson Martinez MD 03/10/2017 02:33 P
[2017-03-10] MEDS ORDERED: ATORVASTATIN 20 MG TAB PO SCH (21:00)
[2017-03-12] MEDS ORDERED: VITAMIN D 50,000 UNITS CAPSULE (ERGOCALCIFEROL 1.25MG) PO SCH (09:00)
== END 2017-03-10 15:36 | disposition home or self-care (01) ==
LOC: M ED 18:50 → M ED INP 21:47 → M PCU 03-09 18:00
PROVIDERS: ADMIT Internal Medicine; ATTEND Family Medicine
DX: I63.8 Other cerebral infarction (principal); I16.0 Hypertensive urgency; R53.1 Weakness; I10 Essential (primary) hypertension; E78.00 Pure hypercholesterolemia, unspecified; G47.30 Sleep apnea, unspecified; F41.9 Anxiety disorder, unspecified; Z79.02 Long term (current) use of antithrombotics/antiplatelets; Z87.891 Personal history of nicotine dependence; Z79.899 Other long term (current) drug therapy; Z88.2 Allergy status to sulfonamides; Z79.82 Long term (current) use of aspirin
CPT/HCPCS: 36415; 70450; 70544; 70551; 71010; 80048; 82550; 82553; 84484; 85025; 85027; 85610; 85730; 86850; 86900; 86901; 93005; 93041; 93880; 94760; 96374; 99285; G0008; G0378

== ENCOUNTER → 2017-03-28 | Outpatient (CLI) | payer OTHER ==
[~2017-03-28] MED LIST changes: +ASPI81TAEC PO; +ATOR1TAB21 PO; +B-1210009 PO; +CALC1TAB30 PO; +CLOP75TA2 PO; +ESZO1TAB3 PO; +VITA1CAP40 PO
--- NOTE | 2017-03-28 09:50 | REP ---
Abdominal aorta ultrasound: Abdominal aorta ultrasound: Abdominal Aortic Measurements are as follows: Proximal 2.1 cm AP 2.7 cm TRV Renal Artery Level 2.6 cm AP 2.8 cm TRV Mid Aorta 4.7 cm AP 5.2 cm TRV Distal Aorta 4.1 cm AP 3.4 cm TRV R Iliac Artery 1.3 cm AP 1.5 cm TRV L Iliac Artery at 1.1 cm AP 1.6 cm TRV There is an aortobi-iliac endovascular stent. There is an abdominal aortic aneurysm maximally measuring 5.2 cm. On the most recent prior study dated 09/26/2014, this aneurysm measured 5.1 cm maximally. By ultrasound today the aneurysm measures 10 cm craniocaudad length. On the prior ultrasound it measured 5.9 cm craniocaudad length. However, sagittal views of the aneurysm are difficult to evaluate because of the endovascular stent. Follow-up CT might be considered for confirmation. Signed by Tyson Martinez MD 03/28/2017 09:42 A
== END ==
LOC: M RAD 08:28
PROVIDERS: ATTEND Surgery Vascular Surgery
DX: I71.4 Abdominal aortic aneurysm, without rupture (principal)

== ENCOUNTER → 2017-03-29 | Outpatient (CLI) | payer OTHER ==
[~2017-03-29] MED LIST changes: +ISOVUE-370 76% 100ML VIAL (Q9967) As Ordered ONE
--- NOTE | 2017-03-29 09:23 | REP ---
CT of the chest with IV contrast, CT pulmonary angiography: There are no emboli in the pulmonary trunk or central pulmonary arteries. There are no emboli in the pulmonary lobe or segment branches. There are no infiltrates or effusions. There are no masses or nodules. There is a large fixed retrocardiac hiatal hernia. This is unchanged from a CT of the abdomen dated 10/09/2008. The thoracic aorta is unremarkable. Cardiac size is enlarged. There is no pericardial effusion. The visualized upper abdominal contents are unremarkable except for a hepatic right lobe 19 mm cyst, unchanged from the 10/09/2008 CT of the abdomen. I suspect there is an endovascular stent in the abdominal aorta. Only the superior most portion of the stent is visible on this chest CT. Impression: There are no pulmonary emboli. No acute cardiopulmonary findings. No masses or nodules. No adenopathy. Cardiomegaly. There is a fixed large retrocardiac hiatal hernia. Endovascular stent in the abdominal aorta. Hepatic cyst. Signed by Tyson Martinez MD 03/29/2017 09:14 A
== END ==
LOC: M RAD 08:26
PROVIDERS: ATTEND Family Medicine
DX: I63.9 Cerebral infarction, unspecified (principal)
CPT/HCPCS: 71275; Q9967

== ENCOUNTER → 2017-07-08 | Outpatient (REF) | payer OTHER ==
[2017-07-08 13:07] LABS: HEMATOCRIT 43.5 % (36.0-47.0); HEMOGLOBIN 14.1 g/dl (12.0-16.0); RED BLOOD COUNT 4.52 10^6/uL (4.00-5.40); WHITE BLOOD COUNT 4.6 10^3/uL (4.0-10.0)
[2017-07-08 13:08] LABS: BASO % 0.7 % (0.0-1.0); EOS # 0.2 10^3/uL (0.0-0.50); EOS % 5.2 % (0.0-3.0); IMMATURE GRANULOCYTE % 0.2 % (0-0); LYMPH # 1.2 10^3/uL (1.5-4.5); MEAN CORPUSCULAR HEMOGLOBIN 31.2 pg (27.0-33.0); MEAN CORPUSCULAR HGB CONC 32.4 g/dl (32.0-36.5); MEAN CORPUSCULAR VOLUME 96.2 fl (80.0-96.0); MONO # 0.4 10^3/uL (0.0-0.8); MONO % 9.1 % (0.0-5.0); NEUTROPHILS # 2.8 10^3/uL (1.8-7.7); NEUTROPHILS % 59.8 % (36.0-66.0); PLATELET COUNT, AUTOMATED 195 10^3/uL (150-450); RED CELL DISTRIBUTION WIDTH 13.4 % (11.5-14.5)
[2017-07-08 13:14] LABS: HEMATOCRIT 43.5 % (36.0-47.0)
[2017-07-08 13:33] LABS: ALBUMIN/GLOBULIN RATIO 1.38 (1.00-1.93); ALKALINE PHOSPHATASE 89 U/L (45-117); ALT/SGPT 24 U/L (12-78); ANION GAP 5 MEQ/L (8-16); AST/SGOT 13 U/L (7-37); BILIRUBIN,TOTAL 0.5 MG/DL (0.2-1.0); BLOOD UREA NITROGEN 18 MG/DL (7-18); C REACTIVE PROTEIN QUANTITATIV < 0.30 MG/DL (0.00-0.30); CARBON DIOXIDE LEVEL 30 MEQ/L (21-32); CHLORIDE LEVEL 109 MEQ/L (98-107); CHOLESTEROL LEVEL 125 MG/DL (<200); CHOLESTEROL RISK RATIO 2.272 (<5); CPK CREATINE PHOSPHOKINASE 56 U/L (26-192); CREATININE FOR GFR 0.68 MG/DL (0.55-1.02); FREE T4 1.06 NG/DL (0.76-1.46); GLOMERULAR FILTRATION RATE > 60.0 (>39); GLUCOSE, FASTING 96 MG/DL (83-110); HDL CHOLESTEROL 55 MG/DL (>40); LDL CHOLESTEROL 47.8 MG/DL (<100); NON-HDL-C 70 MG/DL; POTASSIUM SERUM 4.7 MEQ/L (3.5-5.1); SODIUM LEVEL 144 MEQ/L (136-145); TOTAL PROTEIN 6.9 GM/DL (6.4-8.2); TRIGLYCERIDES LEVEL 111 MG/DL (<150)
[2017-07-08 16:51] LABS: TOTAL 25(OH) VITAMIN D 46.4 NG/ML (30.0-100.0); VITAMIN B12 LEVEL 914 PG/ML (247-911)
[2017-07-08 16:52] LABS: PTH INTACT 90.5 PG/ML (14.0-72.0)
[2017-07-08 18:57] LABS: PRETREATED FOLATE FOR RBCFOL 12.5 NG/ML; RBC FOLATE 603.4 NG/ML (280-791)
== END ==
LOC: M SFHCPLAZ 08:52
DX: E53.8 Deficiency of other specified B group vitamins (principal); E78.5 Hyperlipidemia, unspecified; E83.52 Hypercalcemia
CPT/HCPCS: 82550

== ENCOUNTER → 2017-10-18 | Outpatient (REF) | payer OTHER ==
[2017-10-18 12:19] LABS: BASO % 0.5 % (0.0-1.0); EOS # 0.1 10^3/uL (0.0-0.50); EOS % 3.1 % (0.0-3.0); HEMOGLOBIN 14.4 g/dl (12.0-15.5); IMMATURE GRANULOCYTE % 0.2 % (0-3.0); LYMPH # 1.1 10^3/uL (1.5-4.5); LYMPH % 26.1 % (24.0-44.0); MEAN CORPUSCULAR HEMOGLOBIN 31.6 pg (27.0-33.0); MEAN CORPUSCULAR HGB CONC 32.7 g/dl (32.0-36.5); MEAN CORPUSCULAR VOLUME 96.7 fl (80.0-96.0); MONO # 0.4 10^3/uL (0.0-0.8); MONO % 9.3 % (0.0-5.0); NEUTROPHILS # 2.6 10^3/uL (1.8-7.7); NEUTROPHILS % 60.8 % (36.0-66.0); PLATELET COUNT, AUTOMATED 173 10^3/uL (150-450); RED BLOOD COUNT 4.55 10^6/uL (4.00-5.40); RED CELL DISTRIBUTION WIDTH 13.4 % (11.5-14.5); RETIC HEMOGLOBIN EQUIVALENT 36.9 pg (24-36); RETICULOCYTE # 64.6 10^9/L (17-77); RETICULOCYTE % 1.4 % (0.5-1.5); WHITE BLOOD COUNT 4.2 10^3/uL (4.0-10.0)
[2017-10-18 12:24] LABS: APPEARANCE, URINE CLEAR (CLEAR); BACTERIA, URINE AUTO NEGATIVE (NEGATIVE); BILIRUBIN, URINE AUTO NEGATIVE (NEGATIVE); BLOOD, URINE BLOOD NEGATIVE (NEGATIVE); COLOR, URINE YELLOW (YELLOW); GLUCOSE, URINE (UA) AUTO NEGATIVE (NEGATIVE); KETONE, URINE AUTO NEGATIVE (NEGATIVE); LEUKOCYTE ESTERASE, URINE AUTO NEGATIVE (NEGATIVE); MUCUS, URINE SMALL (NEGATIVE); NITRITE, URINE AUTO NEGATIVE (NEGATIVE); PROTEIN, URINE AUTO NEGATIVE (NEGATIVE); RBC, URINE AUTO 0 /HPF (0-3); SPECIFIC GRAVITY URINE AUTO 1.016 (1.002-1.035); SQUAMOUS EPITHELIAL CELL UR AU 1 /HPF (0-6); UROBILINOGEN, URINE AUTO 0.2 mg/dL (0.0-2.0); WBC, URINE AUTO 1 /HPF (0-3)
[2017-10-18 12:35] LABS: ALBUMIN 3.8 GM/DL (3.2-5.2); ALBUMIN/GLOBULIN RATIO 1.19 (1.00-1.93); ALKALINE PHOSPHATASE 90 U/L (45-117); ALT/SGPT 23 U/L (12-78); ANION GAP 5 MEQ/L (8-16); AST/SGOT 13 U/L (7-37); BILIRUBIN,TOTAL 0.5 MG/DL (0.2-1.0); BLOOD UREA NITROGEN 18 MG/DL (7-18); CARBON DIOXIDE LEVEL 29 MEQ/L (21-32); CHLORIDE LEVEL 110 MEQ/L (98-107); CREATININE FOR GFR 0.73 MG/DL (0.55-1.30); GLOMERULAR FILTRATION RATE > 60.0 (>39); GLUCOSE, FASTING 91 MG/DL (70-100); POTASSIUM SERUM 4.4 MEQ/L (3.5-5.1); SODIUM LEVEL 144 MEQ/L (136-145)
[2017-10-18 12:45] LABS: CREATININE, URINE 94.6 MG/DL; MALB URINE SIEMENS 7.2 MG/L; MAU/CREAT RATIO 7.6 MCG/MG (0.0-30.0)
[2017-10-18 14:06] LABS: ESTIMATED AVERAGE GLUCOSE 108 MG/DL (60-110); HEMOGLOBIN A1c 5.4 %
== END ==
LOC: M SFHCPLAZ 08:13
DX: E83.52 Hypercalcemia (principal); D50.9 Iron deficiency anemia, unspecified; R73.01 Impaired fasting glucose
CPT/HCPCS: 83525

== ENCOUNTER → 2017-10-27 | Outpatient (CLI) | payer OTHER | LOC: M RAD 07:25 | DX: I71.4 Abdominal aortic aneurysm, without rupture (principal); Z95.828 Presence of other vascular implants and grafts | CPT/HCPCS: 76775 ==

== ENCOUNTER → 2017-11-10 | Outpatient (CLI) | payer OTHER | LOC: M WHC 14:25 | DX: Z12.31 Encounter for screening mammogram for malignant neoplasm of breast (principal); Z13.820 Encounter for screening for osteoporosis; M85.9 Disorder of bone density and structure, unspecified; E55.9 Vitamin D deficiency, unspecified; Z78.0 Asymptomatic menopausal state | CPT/HCPCS: 77067 ==

== ENCOUNTER → 2018-03-03 | Outpatient (REF) | payer OTHER ==
[2018-03-03 11:00] LABS: BASO % 0.2 % (0.0-1.0); EOS # 0.2 10^3/uL (0.0-0.50); EOS % 4.1 % (0.0-3.0); HEMATOCRIT 44.7 % (36.0-47.0); HEMOGLOBIN 14.5 g/dl (12.0-15.5); LYMPH # 1.2 10^3/uL (1.5-4.5); LYMPH % 27.4 % (24.0-44.0); MEAN CORPUSCULAR HEMOGLOBIN 31.3 pg (27.0-33.0); MEAN CORPUSCULAR HGB CONC 32.4 g/dl (32.0-36.5); MEAN CORPUSCULAR VOLUME 96.5 fl (80.0-96.0); MONO # 0.4 10^3/uL (0.0-0.8); NEUTROPHILS # 2.6 10^3/uL (1.8-7.7); NEUTROPHILS % 58.3 % (36.0-66.0); PLATELET COUNT, AUTOMATED 180 10^3/uL (150-450); RED BLOOD COUNT 4.63 10^6/uL (4.00-5.40); RED CELL DISTRIBUTION WIDTH 13.2 % (11.5-14.5); RETIC HEMOGLOBIN EQUIVALENT 36.7 pg (24-36); RETICULOCYTE # 74.1 10^9/L (17-77); RETICULOCYTE % 1.6 % (0.5-1.5); WHITE BLOOD COUNT 4.4 10^3/uL (4.0-10.0)
[2018-03-03 11:06] LABS: ALBUMIN 3.8 GM/DL (3.2-5.2); ALBUMIN/GLOBULIN RATIO 1.19 (1.00-1.93); ALKALINE PHOSPHATASE 91 U/L (45-117); ALT/SGPT 22 U/L (12-78); ANION GAP 8 MEQ/L (8-16); AST/SGOT 12 U/L (7-37); BILIRUBIN,TOTAL 0.6 MG/DL (0.2-1.0); BLOOD UREA NITROGEN 18 MG/DL (7-18); C REACTIVE PROTEIN QUANTITATIV < 0.30 MG/DL (0.00-0.30); CALCIUM LEVEL 9.9 MG/DL (8.8-10.2); CARBON DIOXIDE LEVEL 27 MEQ/L (21-32); CHLORIDE LEVEL 108 MEQ/L (98-107); CHOLESTEROL LEVEL 118 MG/DL (<200); CHOLESTEROL RISK RATIO 2.458 (<5); CPK CREATINE PHOSPHOKINASE 73 U/L (26-192); CREATININE FOR GFR 0.86 MG/DL (0.55-1.30); GLOMERULAR FILTRATION RATE > 60.0 (>39); GLUCOSE, FASTING 81 MG/DL (70-100); HDL CHOLESTEROL 48 MG/DL (>40); LDL CHOLESTEROL 42.8 MG/DL (<100); MAGNESIUM LEVEL 2.2 MG/DL (1.8-2.4); NON-HDL-C 70 MG/DL; POTASSIUM SERUM 4.1 MEQ/L (3.5-5.1); SODIUM LEVEL 143 MEQ/L (136-145); TRIGLYCERIDES LEVEL 136 MG/DL (<150)
[2018-03-03 11:11] LABS: TOTAL 25(OH) VITAMIN D 44.3 NG/ML (30.0-100.0)
[2018-03-03 11:12] LABS: PTH INTACT 99.4 PG/ML (18.5-88.0)
== END ==
LOC: M SFHCPLAZ 07:47
DX: D50.9 Iron deficiency anemia, unspecified (principal); E78.5 Hyperlipidemia, unspecified; E83.52 Hypercalcemia
CPT/HCPCS: 82550

== ENCOUNTER → 2018-03-13 | Outpatient (REF) | payer OTHER ==
[2018-03-13 18:56] LABS: C REACTIVE PROTEIN QUANTITATIV < 0.30 MG/DL (0.00-0.30)
[2018-03-13 18:58] LABS: BASO % 0.2 % (0.0-1.0); EOS # 0.1 10^3/uL (0.0-0.50); EOS % 2.7 % (0.0-3.0); HEMATOCRIT 44.9 % (36.0-47.0); HEMOGLOBIN 14.4 g/dl (12.0-15.5); IMMATURE GRANULOCYTE % 0.2 % (0-3.0); LYMPH # 1.2 10^3/uL (1.5-4.5); MEAN CORPUSCULAR HEMOGLOBIN 31.3 pg (27.0-33.0); MEAN CORPUSCULAR HGB CONC 32.1 g/dl (32.0-36.5); MEAN CORPUSCULAR VOLUME 97.6 fl (80.0-96.0); MONO # 0.4 10^3/uL (0.0-0.8); MONO % 8.3 % (0.0-5.0); NEUTROPHILS # 2.7 10^3/uL (1.8-7.7); NEUTROPHILS % 61.6 % (36.0-66.0); PLATELET COUNT, AUTOMATED 183 10^3/uL (150-450); RED CELL DISTRIBUTION WIDTH 13.4 % (11.5-14.5); WHITE BLOOD COUNT 4.4 10^3/uL (4.0-10.0)
[2018-03-13 19:38] LABS: ERYTHROCYTE SEDIMENTATION RATE 9 mm/hr (0-30)
== END ==
LOC: M LABDRAW1 14:40
DX: Z96.651 Presence of right artificial knee joint (principal)
CPT/HCPCS: 86140

== ENCOUNTER → 2018-04-05 | Outpatient (CLI) | payer OTHER | LOC: M RAD 09:36 | DX: Z96.651 Presence of right artificial knee joint (principal) | CPT/HCPCS: 78315 ==

== ENCOUNTER → 2018-07-11 | Outpatient (CLI) | payer MEDICARE ==
[~2018-07-11] MED LIST changes: -ASPI-101 PO; +ASPI-225 PO; +EPIN0.3I11 INJ; -EPIN0.3I6 INJ; -ESZO1TAB3 PO; +ESZO1TAB6 PO; -ISOVUE-370 76% 100ML VIAL (Q9967) As Ordered ONE; +SPIR-10 PO; -SPIR25TA2 PO; +TIZA2CAP PO; -TIZA2CAP3 PO; -VITA1CAP40 PO; +VITA50005 PO
--- NOTE | 2018-07-11 21:08 | REP ---
ABDOMINAL AORTIC ULTRASOUND: 07/11/2018. Clinical history: AAA with stents. Comparison: 10/27/2017. Findings: The exam was technically challenging due to bowel gas. Abdominal aorta measures as follows: Proximal: 2.6 cm AP, 2.7 cm transverse. Renal artery level: 3.3 cm AP, 3.2 cm transverse. Mid aorta: 4.9 cm AP, 5.4 cm transverse. Distal aorta: 5.5 cm AP, 4.4 cm transverse. Common iliac arteries: Right 2.2 x 2.4 cm. Left 1.6 x 2.2 cm. The aneurysm has a maximum diameter 5.5 cm AP by 5.4 cm transverse and extends for length of 12.5 cm. There is ectasia at the level of the main renal artery. Aortobi-iliac stents are seen. No visible leak by ultrasound. Impression: 1. Abdominal aortic aneurysm with no progression from the previous study. Aortobi-iliac stents with no visible leak. Electronically Signed by Antione Smiley MD 07/12/2018 08:56 A
== END ==
LOC: M RAD 07:32
PROVIDERS: ATTEND Surgery Vascular Surgery
DX: I71.4 Abdominal aortic aneurysm, without rupture (principal); Z95.828 Presence of other vascular implants and grafts

== ENCOUNTER → 2018-07-17 | Outpatient (REF) | payer MEDICARE ==
[2018-07-17 11:57] LABS: APPEARANCE, URINE CLEAR (CLEAR); BACTERIA, URINE AUTO NEGATIVE (NEGATIVE); BILIRUBIN, URINE AUTO NEGATIVE (NEGATIVE); BLOOD, URINE BLOOD NEGATIVE (NEGATIVE); COLOR, URINE YELLOW (YELLOW); GLUCOSE, URINE (UA) AUTO NEGATIVE (NEGATIVE); KETONE, URINE AUTO NEGATIVE (NEGATIVE); LEUKOCYTE ESTERASE, URINE AUTO TRACE (NEGATIVE); MUCUS, URINE SMALL (NEGATIVE); NITRITE, URINE AUTO NEGATIVE (NEGATIVE); PROTEIN, URINE AUTO NEGATIVE (NEGATIVE); RBC, URINE AUTO 3 /HPF (0-3); SPECIFIC GRAVITY URINE AUTO 1.016 (1.002-1.035); SQUAMOUS EPITHELIAL CELL UR AU 2 /HPF (0-6); UROBILINOGEN, URINE AUTO 0.2 mg/dL (0.0-2.0); WBC, URINE AUTO 2 /HPF (0-3)
[2018-07-17 12:03] LABS: BASO % 0.4 % (0.0-1.0); EOS # 0.2 10^3/uL (0.0-0.50); EOS % 3.6 % (0.0-3.0); HEMATOCRIT 48.3 % (36.0-47.0); HEMOGLOBIN 15.4 g/dl (12.0-15.5); LYMPH # 1.3 10^3/uL (1.5-4.5); LYMPH % 26.9 % (24.0-44.0); MEAN CORPUSCULAR HEMOGLOBIN 30.9 pg (27.0-33.0); MEAN CORPUSCULAR HGB CONC 31.9 g/dl (32.0-36.5); MEAN CORPUSCULAR VOLUME 96.8 fl (80.0-96.0); MONO # 0.4 10^3/uL (0.0-0.8); MONO % 8.5 % (0.0-5.0); NEUTROPHILS % 60.4 % (36.0-66.0); PLATELET COUNT, AUTOMATED 193 10^3/uL (150-450); RED BLOOD COUNT 4.99 10^6/uL (4.00-5.40); WHITE BLOOD COUNT 4.9 10^3/uL (4.0-10.0)
[2018-07-17 12:11] LABS: ALT/SGPT 24 U/L (12-78); BILIRUBIN,TOTAL 0.6 MG/DL (0.2-1.0); BLOOD UREA NITROGEN 22 MG/DL (7-18); CALCIUM LEVEL 10.2 MG/DL (8.8-10.2); CARBON DIOXIDE LEVEL 28 MEQ/L (21-32); CHLORIDE LEVEL 106 MEQ/L (98-107); CREATININE FOR GFR 0.79 MG/DL (0.55-1.30); GLOMERULAR FILTRATION RATE > 60.0 (>39); GLUCOSE, FASTING 89 MG/DL (70-100); POTASSIUM SERUM 4.3 MEQ/L (3.5-5.1); SODIUM LEVEL 141 MEQ/L (136-145)
[2018-07-17 12:17] LABS: PTH INTACT 137.1 PG/ML (18.5-88.0)
[2018-07-17 12:31] LABS: MALB URINE SIEMENS 7.7 MG/L
[2018-07-17 12:37] LABS: HEMOGLOBIN A1c 5.8 %
[2018-07-18 08:15] LABS: VITAMIN B12 LEVEL 664 PG/ML (232-1245)
[2018-07-18 10:25] LABS: ALBUMIN 4.16 GM/DL (3.29-5.55); ALBUMIN % 59.4 % (55.8-66.1); ALPHA-1-GLOBULIN % 4.5 % (2.9-4.9); ALPHA-1-GLOBULINS 0.32 GM/DL (0.17-0.41); ALPHA-2-GLOBULINS 0.69 GM/DL (0.42-0.99); ALPHA-2-GLOBULINS % 9.9 % (7.1-11.8); BETA-1-GLOBULINS 0.42 GM/DL (0.28-0.60); BETA-2-GLOBULINS 0.39 GM/DL (0.19-0.55); BETA-2-GLOBULINS % 5.5 % (3.2-6.5); GAMMA GLOBULIN % 14.7 % (11.1-18.8); GAMMA GLOBULINS 1.03 GM/DL (0.65-1.58)
== END ==
LOC: M SFHCPLAZ 08:25
PROVIDERS: ATTEND Family Medicine
DX: D72.820 Lymphocytosis (symptomatic) (principal); E83.52 Hypercalcemia; R73.01 Impaired fasting glucose; M85.80 Other specified disorders of bone density and structure, unspecified site; E53.8 Deficiency of other specified B group vitamins

== ENCOUNTER → 2018-10-05 | Outpatient (CLI) | payer MEDICARE ==
[~2018-10-05] MED LIST changes: -VICO5TAB16 PO; +VICO5TAB17 PO
--- NOTE | 2018-10-05 08:54 | REP ---
CT lumbar spine without contrast: History: Disc degeneration. Comparison CT study is from June 01, 2018. Technique: Helical scanning is acquired. Axial 4 mm images are reformatted. Coronal and sagittal MPR images are generated and reviewed. CT findings: Preliminary railroad design consultant radiograph and CT images demonstrate the metallic components associated with aortobi-iliac stent graft placement for abdominal aortic aneurysm. Vascular calcifications noted. No other extra vertebral abnormality. Lumbar vertebral body heights are preserved. Lumbar lordosis is somewhat exaggerated but alignment is unchanged. There is minimal L4-5 degenerative spondylolisthesis, grade 1, 2 mm. This is unchanged. Axial and sagittal images at L4-5 again show minimal diffuse disc bulging and moderate facet hypertrophy. No neural foraminal narrowing or central canal stenosis is noted. At L5-S1, there is a vacuum phenomenon again noted at the degenerated disc . No focal protrusion is seen. Facet hypertrophy is again noted bilaterally. At L3-4, there is diffuse disc bulging, ligamentum flavum hypertrophy, and facet hypertrophy noted bilaterally. Canal size is borderline unchanged. No neural foraminal narrowing is appreciated. At L2-3, there is degenerative disc space narrowing. Posterior osteophytic ridging and disc bulging are seen. Schmorl's nodes are noted. Prominent anterior osteophyte formation is seen all unchanged from the prior study. At L1-2, there is minimal facet hypertrophy. There is a vacuum phenomenon in the narrowed disc. Findings are unchanged. Impression: Degenerative spondylosis changes with degenerative disc and osteoarthritic facet changes noted. No neural foraminal narrowing is seen. No disc herniation is noted. Findings are felt to be unchanged from June 01, 2018. Electronically Signed by Evelio Petersen MD 10/05/2018 06:31 P
== END ==
LOC: M RAD 07:27
PROVIDERS: ATTEND Physician Assistant
DX: M51.36 Other intervertebral disc degeneration, lumbar region (principal); M51.26 Other intervertebral disc displacement, lumbar region

== ENCOUNTER → 2018-10-17 | Outpatient (REF) | payer MEDICARE ==
[2018-10-17 18:39] LABS: INR 1.08; PROTHROMBIN TIME 14.1 SECONDS (12.1-14.4)
[2018-10-17 18:40] LABS: PARTIAL THROMBOPLASTIN TIME 26.5 SECONDS (25.4-37.6)
== END ==
LOC: M LABDRAW1 18:00
PROVIDERS: ATTEND Physical Medicine & Rehabilitation
DX: Z01.812 Encounter for preprocedural laboratory examination (principal); Z79.01 Long term (current) use of anticoagulants

== ENCOUNTER → 2018-10-18 | Outpatient (REF) | payer MEDICARE ==
[2018-10-18 10:45] LABS: BASO % 0.5 % (0.0-1.0); EOS # 0.2 10^3/uL (0.0-0.50); EOS % 4.9 % (0.0-3.0); HEMATOCRIT 44.3 % (36.0-47.0); HEMOGLOBIN 14.2 g/dl (12.0-15.5); LYMPH % 24.1 % (24.0-44.0); MEAN CORPUSCULAR HEMOGLOBIN 31.5 pg (27.0-33.0); MEAN CORPUSCULAR HGB CONC 32.1 g/dl (32.0-36.5); MEAN CORPUSCULAR VOLUME 98.2 fl (80.0-96.0); MONO # 0.4 10^3/uL (0.0-0.8); MONO % 10.3 % (0.0-5.0); NEUTROPHILS # 2.6 10^3/uL (1.8-7.7); PLATELET COUNT, AUTOMATED 171 10^3/uL (150-450); RED BLOOD COUNT 4.51 10^6/uL (4.00-5.40); WHITE BLOOD COUNT 4.3 10^3/uL (4.0-10.0)
[2018-10-18 11:02] LABS: HEMOGLOBIN A1c 5.6 %
[2018-10-18 11:20] LABS: ALBUMIN 3.6 GM/DL (3.2-5.2); ALT/SGPT 22 U/L (12-78); BILIRUBIN,TOTAL 0.6 MG/DL (0.2-1.0); BLOOD UREA NITROGEN 18 MG/DL (7-18); CALCIUM LEVEL 9.5 MG/DL (8.8-10.2); CARBON DIOXIDE LEVEL 30 MEQ/L (21-32); CHLORIDE LEVEL 108 MEQ/L (98-107); CREATININE FOR GFR 0.65 MG/DL (0.55-1.30); FREE T4 0.92 NG/DL (0.76-1.46); GLOMERULAR FILTRATION RATE > 60.0 (>39); GLUCOSE, FASTING 79 MG/DL (70-100); POTASSIUM SERUM 4.2 MEQ/L (3.5-5.1); PTH INTACT 130.3 PG/ML (18.5-88.0); SODIUM LEVEL 141 MEQ/L (136-145); TOTAL 25(OH) VITAMIN D 46.1 NG/ML (30.0-100.0); TOTAL PROTEIN 6.5 GM/DL (6.4-8.2)
== END ==
LOC: M SFHCPLAZ 08:22
PROVIDERS: ATTEND Family Medicine
DX: E53.8 Deficiency of other specified B group vitamins (principal); E83.52 Hypercalcemia; E78.5 Hyperlipidemia, unspecified; R73.01 Impaired fasting glucose; D72.820 Lymphocytosis (symptomatic)

== ENCOUNTER → 2018-12-15 | Outpatient (CLI) | payer MEDICARE ==
[2018-12-15 16:22] LABS: BLOOD UREA NITROGEN 19 MG/DL (7-18); CREATININE FOR GFR 0.85 MG/DL (0.55-1.30); GLOMERULAR FILTRATION RATE > 60.0 (>39)
== END ==
LOC: M LAB 14:45
PROVIDERS: ATTEND Physical Medicine & Rehabilitation
DX: M43.16 Spondylolisthesis, lumbar region (principal)

== ENCOUNTER → 2019-03-07 | Outpatient (REF) | payer MEDICARE ==
[2019-03-07 09:54] LABS: BASO % 0.4 % (0.0-1.0); EOS # 0.2 10^3/uL (0.0-0.5); EOS % 4.2 % (0.0-3.0); HEMATOCRIT 44.2 % (36.0-47.0); HEMOGLOBIN 14.5 g/dl (12.0-15.5); LYMPH # 1.4 10^3/uL (1.5-5.0); LYMPH % 31.1 % (24.0-44.0); MEAN CORPUSCULAR HEMOGLOBIN 31.9 pg (27.0-33.0); MEAN CORPUSCULAR HGB CONC 32.8 g/dl (32.0-36.5); MEAN CORPUSCULAR VOLUME 97.4 fl (80.0-96.0); MONO # 0.4 10^3/uL (0.0-0.8); MONO % 9.3 % (0.0-5.0); NEUTROPHILS # 2.5 10^3/uL (1.5-8.5); NEUTROPHILS % 54.8 % (36.0-66.0); PLATELET COUNT, AUTOMATED 162 10^3/uL (150-450); RED BLOOD COUNT 4.54 10^6/uL (4.00-5.40); WHITE BLOOD COUNT 4.5 10^3/uL (4.0-10.0)
[2019-03-07 10:07] LABS: ALBUMIN 3.7 GM/DL (3.2-5.2); ALT/SGPT 22 U/L (12-78); BILIRUBIN,TOTAL 0.6 MG/DL (0.2-1.0); BLOOD UREA NITROGEN 21 MG/DL (7-18); CARBON DIOXIDE LEVEL 27 MEQ/L (21-32); CHLORIDE LEVEL 108 MEQ/L (98-107); CHOLESTEROL LEVEL 136 MG/DL (<200); CPK CREATINE PHOSPHOKINASE 71 U/L (26-192); CREATININE FOR GFR 0.71 MG/DL (0.55-1.30); GLOMERULAR FILTRATION RATE > 60.0 (>39); GLUCOSE, FASTING 90 MG/DL (70-100); HDL CHOLESTEROL 50 MG/DL (>40); LDL CHOLESTEROL 57 MG/DL (<100); MAGNESIUM LEVEL 2.3 MG/DL (1.8-2.4); NON-HDL-C 86 MG/DL; POTASSIUM SERUM 4.1 MEQ/L (3.5-5.1); SODIUM LEVEL 143 MEQ/L (136-145); TOTAL PROTEIN 6.5 GM/DL (6.4-8.2); TRIGLYCERIDES LEVEL 146 MG/DL (<150)
== END ==
LOC: M SFHCPLAZ 08:09
PROVIDERS: ATTEND Family Medicine
DX: D72.820 Lymphocytosis (symptomatic) (principal); I50.32 Chronic diastolic (congestive) heart failure

== ENCOUNTER → 2019-03-27 | Outpatient (REF) | payer MEDICARE ==
[~2019-03-27] MED LIST changes: -ASPI-225 PO; +ASPI81TA78 PO; -VALA1TAB2 PO; +VALA1TAB64 PO
[2019-03-27 13:05] LABS: ALBUMIN 3.8 GM/DL (3.2-5.2); BLOOD UREA NITROGEN 18 MG/DL (7-18); CALCIUM LEVEL 10.3 MG/DL (8.8-10.2); CARBON DIOXIDE LEVEL 27 MEQ/L (21-32); CHLORIDE LEVEL 106 MEQ/L (98-107); GLOMERULAR FILTRATION RATE > 60.0 (>39); GLUCOSE, FASTING 84 MG/DL (70-100); NT-PRO BNP 167 PG/ML (<125); PHOSPHORUS LEVEL 2.7 MG/DL (2.5-4.9); POTASSIUM SERUM 4.5 MEQ/L (3.5-5.1); SODIUM LEVEL 140 MEQ/L (136-145)
== END ==
LOC: M SFHCPLAZ 10:16
PROVIDERS: ATTEND Family Medicine
DX: I11.0 Hypertensive heart disease with heart failure (principal); I50.32 Chronic diastolic (congestive) heart failure
CPT/HCPCS: 36415; 80069; 83880; 90682; G0008; G0463

== ENCOUNTER → 2019-03-28 | Outpatient (CLI) | payer MEDICARE ==
[~2019-03-28] MED LIST changes: +ASPI-225 PO; -ASPI81TA78 PO; +VALA1TAB2 PO; -VALA1TAB64 PO
== END ==
LOC: M RAD 13:04
PROVIDERS: ATTEND Surgery Vascular Surgery
DX: I71.4 Abdominal aortic aneurysm, without rupture (principal); Z53.9 Procedure and treatment not carried out, unspecified reason

== ENCOUNTER → 2019-04-02 | Outpatient (CLI) | payer MEDICARE ==
--- NOTE | 2019-04-02 09:55 | REP ---
Abdominal aorta ultrasound: Abdominal Aortic Measurements are as follows: Proximal 2.8 cm AP 3.5 cm TRV Renal Artery Level obscured obscured Mid Aorta 4.6 cm AP 5.9 cm TRV Distal Aorta 5.1 cm AP 5.3 cm TRV R Iliac Artery 1.3 cm AP 1.6 cm TRV L Iliac Artery 1.3 cm AP 1.3 cm TRV The the patient has a known aortobi-iliac endovascular graft. The graft is patent. On the prior study of 07/11/2018. The mid aorta measured 4.9 by 5.4 cm and the distal aorta measured 5.5 x 4.4 cm. No leak is identified by ultrasound. The study is technically difficult because of patient body habitus and bowel gas. Electronically Signed by Tyson Martinez MD 04/02/2019 09:46 A
== END ==
LOC: M RAD 07:32
PROVIDERS: ATTEND Physician Assistant
DX: I71.4 Abdominal aortic aneurysm, without rupture (principal)

== ENCOUNTER → 2019-04-17 | Outpatient (REF) | payer MEDICARE ==
[2019-04-17 10:18] LABS: BASO % 0.3 % (0.0-1.0); EOS # 0.2 10^3/uL (0.0-0.5); EOS % 2.3 % (0.0-3.0); HEMATOCRIT 45.6 % (36.0-47.0); HEMOGLOBIN 14.9 g/dl (12.0-15.5); LYMPH # 1.3 10^3/uL (1.5-5.0); LYMPH % 18.4 % (24.0-44.0); MEAN CORPUSCULAR HEMOGLOBIN 31.2 pg (27.0-33.0); MEAN CORPUSCULAR HGB CONC 32.7 g/dl (32.0-36.5); MEAN CORPUSCULAR VOLUME 95.6 fl (80.0-96.0); MONO # 0.7 10^3/uL (0.0-0.8); MONO % 10.5 % (0.0-5.0); NEUTROPHILS # 4.8 10^3/uL (1.5-8.5); NEUTROPHILS % 68.2 % (36.0-66.0); PLATELET COUNT, AUTOMATED 168 10^3/uL (150-450); RED BLOOD COUNT 4.77 10^6/uL (4.00-5.40); WHITE BLOOD COUNT 7.1 10^3/uL (4.0-10.0)
[2019-04-17 10:25] LABS: ALBUMIN 3.8 GM/DL (3.2-5.2); ALT/SGPT 18 U/L (12-78); BILIRUBIN,TOTAL 0.9 MG/DL (0.2-1.0); BLOOD UREA NITROGEN 23 MG/DL (7-18); CALCIUM LEVEL 9.9 MG/DL (8.8-10.2); CARBON DIOXIDE LEVEL 29 MEQ/L (21-32); CHLORIDE LEVEL 109 MEQ/L (98-107); CREATININE FOR GFR 0.78 MG/DL (0.55-1.30); GLOMERULAR FILTRATION RATE > 60.0 (>39); GLUCOSE, FASTING 91 MG/DL (70-100); POTASSIUM SERUM 4.1 MEQ/L (3.5-5.1); SODIUM LEVEL 142 MEQ/L (136-145); TOTAL PROTEIN 6.7 GM/DL (6.4-8.2)
[2019-04-17 10:33] LABS: PTH INTACT 158.7 PG/ML (18.5-88.0); TOTAL 25(OH) VITAMIN D 43.8 NG/ML (30.0-100.0)
[2019-04-17 10:39] LABS: HEMOGLOBIN A1c 5.4 %
== END ==
LOC: M SFHCPLAZ 08:12
PROVIDERS: ATTEND Family Medicine
DX: E55.9 Vitamin D deficiency, unspecified (principal); I10 Essential (primary) hypertension

== ENCOUNTER → 2019-04-26 | Outpatient (REF) | payer MEDICARE ==
[2019-04-26 11:17] LABS: CALCIUM, 24 HOUR URINE 180.4 MG/24HR (42-353); CALCIUM, URINE 8.2 MG/DL; CREATININE 24 HOUR, URINE 963.6 MG/24HR (600-1800); CREATININE, URINE 43.8 MG/DL
== END ==
LOC: M SFHCPLAZ 10:07
PROVIDERS: ATTEND Nurse Practitioner Family
DX: E83.52 Hypercalcemia (principal)

== ENCOUNTER → 2019-05-31 | Outpatient (REF) | payer MEDICARE ==
[2019-05-31 12:32] LABS: PLATELET COUNT, AUTOMATED 170 10^3/uL (150-450)
[2019-05-31 12:43] LABS: INR 1.17; PARTIAL THROMBOPLASTIN TIME 25.8 SECONDS (25.0-38.4); PROTHROMBIN TIME 14.6 SECONDS (11.8-14.0)
== END ==
LOC: M LABDRAW1 11:56
PROVIDERS: ATTEND Physical Medicine & Rehabilitation
DX: Z01.812 Encounter for preprocedural laboratory examination (principal); M43.16 Spondylolisthesis, lumbar region; Z79.899 Other long term (current) drug therapy

== ENCOUNTER → 2019-07-27 | Outpatient (REF) | payer MEDICARE ==
[~2019-07-27] MED LIST changes: -ASPI-225 PO; +ASPI81TA78 PO; -VALA1TAB2 PO; +VALA1TAB64 PO
== END ==
LOC: M SFHCPLAZ 12:01
PROVIDERS: ATTEND Family Medicine
DX: I50.32 Chronic diastolic (congestive) heart failure (principal); E83.52 Hypercalcemia; R73.01 Impaired fasting glucose; Z53.8 Procedure and treatment not carried out for other reasons

== ENCOUNTER → 2019-07-30 | Outpatient (CLI) | payer MEDICARE ==
[2019-07-30 13:43] LABS: ALBUMIN 3.8 GM/DL (3.2-5.2); ALT/SGPT 24 U/L (12-78); BILIRUBIN,TOTAL 0.6 MG/DL (0.2-1.0); BLOOD UREA NITROGEN 24 MG/DL (7-18); CALCIUM LEVEL 9.9 MG/DL (8.8-10.2); CARBON DIOXIDE LEVEL 29 MEQ/L (21-32); CHLORIDE LEVEL 109 MEQ/L (98-107); CHOLESTEROL LEVEL 120 MG/DL (<200); CHOLESTEROL RISK RATIO 2.448 (<5); GLOMERULAR FILTRATION RATE > 60.0 (>39); GLUCOSE, FASTING 90 MG/DL (70-100); HDL CHOLESTEROL 49 MG/DL (>40); LDL CHOLESTEROL 51 MG/DL (<100); MAGNESIUM LEVEL 2.5 MG/DL (1.8-2.4); NON-HDL-C 71 MG/DL; NT-PRO BNP 375 PG/ML (<125); POTASSIUM SERUM 4.6 MEQ/L (3.5-5.1); SODIUM LEVEL 143 MEQ/L (136-145); TOTAL PROTEIN 6.7 GM/DL (6.4-8.2); TRIGLYCERIDES LEVEL 101 MG/DL (<150)
[2019-07-30 13:46] LABS: PTH INTACT 126.3 PG/ML (18.5-88.0); TOTAL 25(OH) VITAMIN D 46.3 NG/ML (30.0-100.0)
[2019-07-30 14:21] LABS: HEMOGLOBIN A1c 5.5 %
== END ==
LOC: M WUC 09:07
PROVIDERS: ATTEND Family Medicine
DX: E83.52 Hypercalcemia (principal); I50.32 Chronic diastolic (congestive) heart failure; R73.01 Impaired fasting glucose

== ENCOUNTER → 2019-11-15 | Outpatient (CLI) | payer MEDICARE ==
[~2019-11-15] MED LIST changes: +VALA1TAB5 PO; -VALA1TAB64 PO
--- NOTE | 2019-11-15 12:31 | REPMRS ---
Patient History The patient states she has not had a clinical breast exam in over a year. No known family history of cancer. Benign excisional biopsy of the left breast, 1970. No Hormone Replacement Therapy Digital Woman Screen Mammo: November 15, 2019 - Exam #: [id number] Bilateral CC and MLO view(s) were taken. Technologist: Evita Yeboah, Technologist Prior study comparison: November 14, 2018, bilateral digital woman screen mammo performed at [facility]. November 10, 2017, digital woman screen mammo performed at [facility]. October 25, 2016, digital woman screen mammo performed at [facility]. FINDINGS: There are scattered fibroglandular densities. The Volpara volumetric breast density category is:B. There has been no change in the appearance of the mammogram from the prior studies. There is a mild amount of scattered fibroglandular density which is fairly symmetric. There is no interval development of dominant mass, architectural distortion, or grouped microcalcification suggestive of malignancy. 3-D tomosynthesis shows no additional findings. Assessment: BI-RADS/ACR category 1 mammogram. Negative Mammogram. Recommendation Routine screening mammogram of both breasts in 1 year (for women over age 40). This patient's Lifetime Breast Cancer Risk is estimated at 2.9 %. This mammogram was interpreted with the aid of an FDA-approved computer-aided dectection system. Electronically Signed By: Fortunato Petersen MD 11/15/19 [id number]
== END ==
LOC: M WHC 11:09
PROVIDERS: ATTEND Family Medicine
DX: Z12.31 Encounter for screening mammogram for malignant neoplasm of breast (principal)

== ENCOUNTER → 2020-01-02 | Outpatient (CLI) | payer MEDICARE ==
[2020-01-02 11:27] LABS: BLOOD UREA NITROGEN 16 MG/DL (7-18); CREATININE FOR GFR 0.84 MG/DL (0.55-1.30); GLOMERULAR FILTRATION RATE > 60.0 (>39)
== END ==
LOC: M LAB 10:17
PROVIDERS: ATTEND Physician Assistant
DX: I71.4 Abdominal aortic aneurysm, without rupture (principal)

== ENCOUNTER → 2020-01-03 | Outpatient (REF) | payer MEDICARE ==
[2020-01-03 13:03] LABS: BASO % 0.6 % (0.0-1.0); EOS # 0.2 10^3/uL (0.0-0.5); EOS % 3.6 % (0.0-3.0); HEMATOCRIT 48.7 % (36.0-47.0); HEMOGLOBIN 15.6 g/dl (12.0-15.5); LYMPH # 1.3 10^3/uL (1.5-5.0); LYMPH % 26.5 % (24.0-44.0); MEAN CORPUSCULAR HEMOGLOBIN 31.3 pg (27.0-33.0); MEAN CORPUSCULAR VOLUME 97.6 fl (80.0-96.0); MONO # 0.5 10^3/uL (0.0-0.8); MONO % 10.1 % (0.0-5.0); NEUTROPHILS % 58.8 % (36.0-66.0); PLATELET COUNT, AUTOMATED 181 10^3/uL (150-450); RED BLOOD COUNT 4.99 10^6/uL (4.00-5.40); WHITE BLOOD COUNT 5.1 10^3/uL (4.0-10.0)
[2020-01-03 13:10] LABS: ALBUMIN 3.9 GM/DL (3.2-5.2); ALT/SGPT 23 U/L (12-78); BILIRUBIN,TOTAL 0.7 MG/DL (0.2-1.0); BLOOD UREA NITROGEN 15 MG/DL (7-18); CALCIUM LEVEL 10.2 MG/DL (8.8-10.2); CARBON DIOXIDE LEVEL 28 MEQ/L (21-32); CHLORIDE LEVEL 108 MEQ/L (98-107); CREATININE FOR GFR 0.84 MG/DL (0.55-1.30); GLOMERULAR FILTRATION RATE > 60.0 (>39); GLUCOSE, FASTING 97 MG/DL (70-100); POTASSIUM SERUM 4.3 MEQ/L (3.5-5.1); PTH INTACT 144.6 PG/ML (18.5-88.0); SODIUM LEVEL 141 MEQ/L (136-145); TOTAL PROTEIN 7.1 GM/DL (6.4-8.2); VITAMIN B12 LEVEL 811 PG/ML (247-911)
== END ==
LOC: M PLALAB 08:46
PROVIDERS: ATTEND Family Medicine
DX: D72.820 Lymphocytosis (symptomatic) (principal); E83.52 Hypercalcemia; E53.8 Deficiency of other specified B group vitamins

== ENCOUNTER → 2020-01-09 | Outpatient (CLI) | payer MEDICARE ==
[~2020-01-09] MED LIST changes: +ISOVUE-370 76% 100ML VIAL As Ordered ONE
--- NOTE | 2020-01-09 12:27 | REP ---
CT ANGIOGRAM ABDOMEN AND PELVIS: TECHNIQUE: Axial contrast-enhanced images from the lung bases to the pubic symphysis using 100 mL Isovue-370 intravenous contrast material with multiplanar reformations. 3D MIP reconstruction images are performed. There is a large hiatal hernia. There is mild compressive atelectasis in the left lower lobe. The liver demonstrates a benign cyst or hemangioma in the right lobe unchanged since CT of 2008 measuring approximately 1 cm in diameter. The spleen is unremarkable. The adrenal glands demonstrate benign thickening which is stable. No pancreatic mass is seen. There is focal scarring of the lower pole of the left kidney. There is no hydronephrosis. There is a fusiform aneurysm again seen of the infrarenal distal abdominal aorta. Maximum diameter is 4.4 cm AP x 4.9 cm transverse. Patent lumen at that level measures 2.7 cm in AP and transverse dimensions. There is an aortobi-iliac stent. This extends from just below the level of the renal arteries into the bilateral common iliac arteries distal aspects. There is significant metallic streak artifact at the level of the distal abdominal aorta anteriorly. This obscures portions of the opacified lumen of the abdominal aorta and in particular, the right iliac limb of the stent. There is patent contrast opacified blood flow through the distal abdominal aorta and bilateral common iliac arteries. There is no definite endoleak. No dissection or rupture is seen. There is no adenopathy. There is no free air or free fluid. There is no bowel wall thickening. There is no pelvic mass. Sigmoid diverticulosis is noted. Urinary bladder is mildly distended and grossly unremarkable. There are degenerative changes of the spine. Please note that the celiac and superior mesenteric arteries as well as bilaterally main renal arteries demonstrate no stenosis. There is mild plaquing and narrowing at the origin of both main renal arteries. IMPRESSION: Fusiform aneurysm distal abdominal aorta below the level of the renal arteries as discussed above with an aortobi-iliac stent in place. There is patent flow through the stent. Measurements given above. Metallic streak artifact somewhat limits evaluation but there is no definite evidence of endoleak. Electronically Signed by Tyson García MD 01/09/2020 11:23 P
== END ==
LOC: M RAD 08:06
PROVIDERS: ATTEND Physician Assistant
DX: I71.4 Abdominal aortic aneurysm, without rupture (principal)
CPT/HCPCS: 74174; Q9967

== ENCOUNTER → 2020-05-15 | Outpatient (REF) | payer MEDICARE ==
[~2020-05-15] MED LIST changes: -ISOVUE-370 76% 100ML VIAL As Ordered ONE
[2020-05-15 11:48] LABS: BASO % 0.4 % (0.0-1.0); EOS # 0.1 10^3/uL (0.0-0.5); EOS % 2.6 % (0.0-3.0); HEMATOCRIT 47.8 % (36.0-47.0); LYMPH # 1.3 10^3/uL (1.5-5.0); LYMPH % 27.3 % (24.0-44.0); MEAN CORPUSCULAR HEMOGLOBIN 31.1 pg (27.0-33.0); MEAN CORPUSCULAR HGB CONC 31.4 g/dl (32.0-36.5); MEAN CORPUSCULAR VOLUME 99.2 fl (80.0-96.0); MONO # 0.5 10^3/uL (0.0-0.8); NEUTROPHILS # 2.8 10^3/uL (1.5-8.5); NEUTROPHILS % 59.7 % (36.0-66.0); PLATELET COUNT, AUTOMATED 186 10^3/uL (150-450); RED BLOOD COUNT 4.82 10^6/uL (4.00-5.40); WHITE BLOOD COUNT 4.6 10^3/uL (4.0-10.0)
[2020-05-15 12:31] LABS: ALBUMIN 3.9 GM/DL (3.2-5.2); ALT/SGPT 23 U/L (12-78); BILIRUBIN,TOTAL 0.6 MG/DL (0.2-1.0); BLOOD UREA NITROGEN 20 MG/DL (7-18); CALCIUM LEVEL 10.1 MG/DL (8.8-10.2); CARBON DIOXIDE LEVEL 30 MEQ/L (21-32); CHLORIDE LEVEL 108 MEQ/L (98-107); CHOLESTEROL LEVEL 124 MG/DL (<200); CHOLESTEROL RISK RATIO 2.431 (<5); CREATININE FOR GFR 0.78 MG/DL (0.55-1.30); FREE T4 1.05 NG/DL (0.76-1.46); GLOMERULAR FILTRATION RATE > 60.0 (>39); GLUCOSE, FASTING 90 MG/DL (70-100); HDL CHOLESTEROL 51 MG/DL (>40); LDL CHOLESTEROL 54 MG/DL (<100); NON-HDL-C 73 MG/DL; POTASSIUM SERUM 4.7 MEQ/L (3.5-5.1); PTH INTACT 141.1 PG/ML (18.5-88.0); SODIUM LEVEL 141 MEQ/L (136-145); TOTAL 25(OH) VITAMIN D 50.1 NG/ML (30.0-100.0); TOTAL PROTEIN 6.6 GM/DL (6.4-8.2); TRIGLYCERIDES LEVEL 97 MG/DL (<150)
[2020-05-15 13:06] LABS: HEMOGLOBIN A1c 5.2 %
== END ==
LOC: M PLALAB 08:49
PROVIDERS: ATTEND Family Medicine
DX: D72.820 Lymphocytosis (symptomatic) (principal); R73.01 Impaired fasting glucose; E55.9 Vitamin D deficiency, unspecified; Z79.899 Other long term (current) drug therapy

== ENCOUNTER → 2020-06-30 | Outpatient (CLI) | payer MEDICARE ==
[2020-06-30 10:33] LABS: BLOOD UREA NITROGEN 21 MG/DL (7-18); CREATININE FOR GFR 0.83 MG/DL (0.55-1.30); GLOMERULAR FILTRATION RATE > 60.0 (>39)
== END ==
LOC: M LAB 09:25
PROVIDERS: ATTEND Physician Assistant
DX: I71.4 Abdominal aortic aneurysm, without rupture (principal)

== ENCOUNTER → 2020-07-02 | Outpatient (CLI) | payer MEDICARE ==
[~2020-07-02] MED LIST changes: +ISOVUE-370 76% 100ML VIAL As Ordered ONE
--- NOTE | 2020-07-02 15:36 | REP ---
INDICATION: AAA W/O RUPTURE COMPARISON: None TECHNIQUE: Axial contrast-enhanced images from the lung bases to the pubic symphysis using aortic angiographic technique and protocol with multiplanar reformations, volume rendered MPR images and CT aortogram. 100 cc Isovue 370 intravenous contrast material administered without complication. This CT examination was performed using the following dose reduction techniques: Automated exposure control, adjustment of mA and/or kv according to the patient's size, and use of iterative reconstruction technique. FINDINGS: Patient is again noted to be status post aorto-bi iliac stent graft placement for infrarenal abdominal aortic aneurysm which measures 4.7 x 4.3 cm maximal transverse and AP diameter and appears unchanged compared to prior examination. The excluded portion of the aneurysm appears relatively stable and without obvious evidence for leak. There is no evidence for extravasation or periaortic fluid/stranding. Atherosclerotic changes are identified throughout the arterial structures with patent appearance to the celiac axis, superior mesenteric artery, solitary bilateral renal arteries and iliac arteries. There appears to be a large hiatal hernia with the stomach essentially completely above the level of the diaphragm and with possible organoaxial volvulus which is incompletely evaluated. Liver is relatively normal and demonstrates stable small cystic changes. Spleen, pancreas, gallbladder, bilateral adrenal glands are normal. Kidneys demonstrate chronic changes including scarring along anterior margin of the left kidney with otherwise symmetric enhancement. No evidence for bowel obstruction or obvious acute inflammatory process. Colonic and sigmoid diverticulosis noted without acute diverticulitis. Pelvis demonstrates normal bladder and evidence for prior hysterectomy. No ascites. No free air. No adenopathy. Musculoskeletal structures demonstrate degenerative changes without acute osseous abnormality. Lung bases are clear. IMPRESSION: 1. Stable appearance to the infrarenal abdominal aortic aneurysm with aortoiliac stent in place and no evidence for aneurysmal enlargement, leak or periaortic inflammatory changes. 2. Further chronic nonacute findings as described above including large gastric hiatal hernia with suspected organoaxial volvulus. <Electronically signed by Kapil Douglass > 07/02/20 [id number]
== END ==
LOC: M RAD 14:33
PROVIDERS: ATTEND Physician Assistant
DX: I71.4 Abdominal aortic aneurysm, without rupture (principal); K44.9 Diaphragmatic hernia without obstruction or gangrene
CPT/HCPCS: 74174; Q9967

== ENCOUNTER → 2020-08-06 | Outpatient (CLI) | payer MEDICARE ==
[~2020-08-06] MED LIST changes: +ACET-897 PO; +FURO20TA2 PO; +HYDR-3713 PO; -ISOVUE-370 76% 100ML VIAL As Ordered ONE
== END ==
LOC: M LABSMTC 13:03
PROVIDERS: ATTEND Anesthesiology
DX: Z01.812 Encounter for preprocedural laboratory examination (principal); Z20.822 Contact with and (suspected) exposure to COVID-19

== ENCOUNTER 2020-08-11 11:46 | Day surgery (SDC) | payer MEDICARE ==
[~2020-08-11] VITALS: Ht 175.3 cm; Wt 115.2 kg
[~2020-08-11 11:46] MED LIST changes: -ACET-897 PO; -HYDR-3713 PO; +NS 1,000 ML IV ONE
--- OUTSIDE RECORDS SUMMARY | 2020-08-11 11:51 | CCD ---
Author Author [facility] Organization [facility] Address Unknown Phone Unavailable Care Team Providers Care Web Press Jogger Name Role Phone Antoine Morgan Unavailable PROBLEMS Type Condition ICD9-CM Code TAB55-OJ Code Onset Dates Condition S tatus SNOMED Code Notes Problem DJD (degenerative joint disease), lumbar M47.816 Active 419044757 Problem Hyperlipidemia E78.5 Active 60423169 Problem Ascending aortic aneurysm I71.2 Active 405382 007 Problem H/O food anaphylaxis Z91.018 Active 933536566 Problem Hypertension I10 Active 79475367 Problem Vitamin D deficiency E55.9 Active 60513484 Problem Breast cancer screening Z12.39 Active 60028636 6 Problem Impaired fasting glucose R73.01 Active 1746079 07 Problem Depression F32.9 Active 73140676 Problem Actinic keratoses L57.0 Active 192170154 Problem JEANMARIE (obstructive sleep apnea) G47.33 Active 78 187443 Problem Hypercalcemia E83.52 Active 03169245 Problem Vitamin B12 deficiency E53.8 Active 134476914 Problem Herpes gingivostomatitis B00.2 Active 1220093 7 Problem Chronic diastolic heart failure I50.32 Active 947413486 Problem 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 Active 418 119888 Problem Colon cancer screening Z12.11 Active 696365086 Problem Osteoarthritis of both knees M17.0 Active 239 725913 Problem Insomnia G47.00 Active 292850984 Problem Allergic rhinitis, cause unspecified J30.9 Act jesus 71320721 Problem 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 Active 774230334 Problem History of lacunar cerebrovascular accident (CVA) Z86.73 Active 71344393697519 Problem AAA (abdominal aortic aneurysm) without rupture I7 1.4 Active 44368989 Problem Osteopenia, unspecified location M85.80 Active 781643778 ALLERGIES Allergen (clinical drug ingredient) Drug/Non Drug Allergy do cumented on EMR Reaction Allergy Type Onset Date Status fish Anaphylaxis Non Drug Allergy Active Sulfa (for allergy use only) itching, vomiting Drug Allerg y Active ENCOUNTERS from 1945 to 2020-06-02 Encounter Location Date Provider Diagnosis [address] [place] [address] 03 May, 020 Antoine Morgan Impaired fasting glucose R73.01 ; DJD (degenerative joint disease), lumbar M47.816 ; Hypercalcemia E83.52 ; Chronic diastolic heart failure I50.32 ; Annual physical exam Z00.00 ; 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 ; Osteoarthritis of both knees M17.0 ; Colon cancer screening Z12.11 ; Osteopenia, unspecified location M85.80 ; Hypertension I10 ; AAA (abdominal aortic aneurysm) without rupture I71.4 ; Hyperlipidemia E78.5 ; Allergic rhinitis, cause unspecified J30.9 ; History of lacunar cerebrovascular accident (CVA) Z86.73 ; Vitamin B12 deficiency E53.8 ; Ascending aortic aneurysm I71.2 ; Actinic keratoses L57.0 ; Depression F32.9 ; Insomnia G47.00 ; Vitamin D deficiency E55.9 ; H/O food anaphylaxis Z91.018 ; Breast cancer screening Z12.39 ; JEANMARIE (obstructive sleep apnea) G47.33 and Herpes gingivostomatitis B00.2 IMMUNIZATIONS Vaccine Route Administration Date Status Influenza (18 yrs & older) Flublok IM Intramuscular Mar 27, 2019 Administered Pneumococcal Adult 0.5mL (Pneumovax 23) IM Intramuscular Apr 10, 2019 Administered Influenza (High Dose 65 & up) IM Intramuscular Mar 07, 2015 A dministered Zoster 50mcg/0.5mL (Shingrix) IM Intramuscular October 25, 2017 A dministered Zoster 50mcg/0.5mL (Shingrix) IM Intramuscular Mar 10, 2018 A dministered Influenza (6mo & up) Fluzone Unknown Mar 26, 2011 Adm inistered Zoster 0.65mL (Zostavax) IM Intramuscular November 24, 2010 Admini stered Influenza (Pharmacy Given) Unknown Feb 14, 2020 Admin istered Influenza (Pharmacy Given) IM Intramuscular Mar 31, 2018 Admi nistered Influenza (High Dose 65 & up) IM Intramuscular Mar 10, 2017 A dministered TDAP 0.5mL (Boostrix) IM Intramuscular May 05, 2019 Administe red TDAP 0.5mL (Boostrix) IM Intramuscular November 24, 2010 Administe red Pneumococcal 0.5mL (Prevnar 13) IM Intramuscular Jul 03, 2015 Administered Influenza (6mo & up) Fluzone IM Intramuscular Apr 18, 2013 Ad ministered SOCIAL HISTORY Sex Assigned At : Social History Observation Description Sex Assigned At Unknown Language: Question Answer Notes Languages spoken: Serbian Holiness: Question Answer Notes Holiness 13 Christian Sexual Hx: Question Answer Notes Had sex in the last 12 months (vaginal, oral, or anal)? No Have you ever had an STD? No Alcohol Screening: Question Answer Notes Did you have a drink containing alcohol in the past year? Ye s Points 2 Interpretation Negative How often did you have six or more drinks on one occas ion in the past year? Never (0 points) How many drinks did you have on a typica l day when you were drinking in the past year? 1 or 2 (0 points) How often did you have a drink containing alcohol in t he past year? Two to four times a month (2 points) BMI Care Goal Follow-Up Question Answer Notes Above Normal BMI Follow-Up Giving encouragement to exercise REASON FOR REFERRAL No Information VITAL SIGNS Weight 257.4 lbs May, Height 70 in May, BMI 36.93 kg/m2 May, Heart Rate 66 /min May, Respiratory Rate 20 /min May, Temperature 97.4 degrees Fahrenheit May, Oximetry 95% May, Blood pressure systolic 128 mm Hg May, Blood pressure diastolic 78 mm Hg May, MEDICATIONS Medication SIG (Take, Route, Frequency, Duration) Notes Start Da te End Date Status Voltaren 1 % 4 gm Transdermal four times daily to sophia ateral knees for 30 day(s) Active Ergocalciferol 73452 UNIT 1 capsule Orally every 14 days for 90 day(s ) Active Clopidogrel Bisulfate 75 MG 1 tablet Orally Once a day for 90 day(s) Active Tylenol Extra Strength 500 mg 2 tablets Orally Every 4 hours as neede d Active Nasonex 50 MCG/ACT 2 sprays in each nostril Nasally Once a day f or 30 day(s) Active Hydrocodone-Acetaminophen 5-325 MG 1 tablet as needed Orally BID prn pain for 30 day(s) May, Active Tizanidine HCl 2 MG 1 tablet as needed Orally twice a day prn for 9 0 day(s) Active EpiPen 2-Kam 0.3 MG/0.3ML (1:1000) 1 injection Intramu scular as needed for allergic reaction for 90 day(s) Active Valtrex 1 GM 2 tablets Orally Every 12 hours x 1 day as neede d for 90 day(s) Active Atorvastatin Calcium 80 MG 1 tablet Orally Once a day for 90 day(s) Active Lasix 20 MG 1 tablet Orally every morning for 90 day(s) Active Zolpidem Tartrate 10 MG 1 tablet at bedtime as neede d Orally at bedtime for 90 day(s) Active Spironolactone 25 mg 1 tablet Orally once a day for 90 day(s) Active COMPRESSION STOCKINGS 15-20 as directed re 459.81 qd for 90 day(s) Active Sertraline HCl 100 MG 1 tablet Orally Once a day for 90 day(s) Active Vitamin B-12 1000 MCG 1 tablet Orally Once a day Active CPAP mask Tubing Dx: 327.23 Use with CPAP At Bedtime Active PROCEDURES No Information RESULTS No Results REASON FOR VISIT 5 month f/u ok pe SL MEDICAL (GENERAL) HISTORY Type Description Date Medical History iron deficiency anemia secanish seaman to probable NSAID-induced gastritis on both Naprosyn and Vioxx in 1999 Medical History hypertension- December 2006 AST without rev ersibility-Antecol Medical History JEANMARIE on chronic CPAP Medical History impaired fasting glucose Medical History obesity Medical History history of osteoporosis with normal T score spine September 2008 BMD Medical History chronic MDD/insomnia Medical History recurrent otitis externa/ear eczema-foll ows with Dr. 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 Greenberg Medical History lactose intolerance Medical History fresh water fish anaphalaxis-last occure nce 12/26/2011 Medical History lumbar spondylosis-ML c adva nced ML facet hypertrophy, grade 1 L4/5 lithesis s NFN nor CCS by 05/2018 CT-ordered by Mcnally Medical History mild proximal ascending aort a dilitation, grade 1 diastolic dysfunction, moderate LAEby 06/2016 TTE-Antecol Medical History allergic rhinitis-01/2014 zone 1 class 1 dust mite, ragweed Medical History OU dry eyes Medical History 2 episode R facial/UE/LE [place]/numbness 2 small acute lacunar CVA of high posterior L frontal lobe, paramedian region, chronic by 02/2017 MRI/MRA brain minor atherosclerosis on B carotid siphons Surgical History EGD/bqjxrctwnuj-koztxqevsyqkss-Hhujten S eptember 1999 Surgical History colonoscopy-diverticulosis/h emorrhoids/hyperplastic polyp-Vicenta March 2010 Surgical History R TKR-Yari 01/2007 Surgical History endovascular AAA repairc coi ling B accessory renal arteries, 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-Alvin 11/20/14 Surgical History L TKR-Javon 02/04/16 Surgical History hammerhead toe sbfms-Rkdhkw-OJQN 7 Hospitalization History small acute lacunar CVA of h igh posterior L frontal lobe, paramedian region c 2 episodes of transient R hemiparesis , on asa 81 therefore, to clopid 75, and increased to HI statin 03/08- Goals Section No Information Health Concerns No Information MEDICAL EQUIPMENT No Information MENTAL STATUS No Information FUNCTIONAL STATUS No Information ASSESSMENTS Encounter Date Diagnosis Assessment Notes Treatment Notes Treatm ent Clinical Notes May, Impaired fasting glucose (ICD-10 - R73.01) Continue ADA diet/weight loss 05/05 5.2 (90, 19) 06/2018 5.8 09/2017 5.4 c ADEEL-IR 2 (91, 10) 10/2016 A1C 5.3 06/2018 7 09/2017 8 06/2016 COLLEEN/creatinine 7 May, DJD (degenerative joint disease), lumbar (ICD-10 - M47.816) on home PT/daily walking and nenita 200 TID, tiz 2 BID prn and aceto 500-1000 TID (MDD 3000) and rare HC 5 02/2019 wean off nenita 200 TID to 100 TID, then off 10/2018 for HEATHER Goodman given no benefit R hip c ~4W improvement 05/2018 improved c [facility] PT per Dali, CT LS spine as per 01/2016 Skelaxin 800 BID prn changed to tizad 2 BID prn by i May, Hypercalcemia (ICD-10 - E83.52) Patient remains asymptomatic 1-2 servings dietary Ca QD (lactose intolerant) Contingency: repeat sestamibi, D2 to D3 1K favor 2 mild 1HPT 05/15/20 50, 10, 141; therefore, D2 03/2019 43, 9.9, 159; 24H urine Ca 180/cr 964 (Ca-cr ratio 0.19); therefore, cw 1HPT (rather than [facility]) 09/2018 46, 9.5, 130 06/2018 10.2, 137; on D2 q14D (off indap and Ca) 02/2018 44, 9.9, 99; therefore, stopped Ca 600 06/2017 46, 10.0, 91 02/2017 59, 10.4, 89-held idapamide 1.25 qAM as per HTN 10/2016 54, 10.0, 93 on Drisdol qoW and Ca 600 QD 06/2016 91, 10.4, 103 on Drisdol qW; therefore, decreased to qoW 12/2010 calcium 10.0, PTH 56 of HCTZ 12.5 and lisinopril 10 daily-therefore no real change, therefore switch back to HCTZ given increased edema of it October 2010 calcium 10.0 with PTH of 41 not on calcium supplementation, on HCTZ 12.5 daily July 2010 normal parathyroid sestamibi scan 09/2018 sIFE s MCB, May, Chronic diastolic heart failure (ICD-10 - I50.32 ) Euvolemic on fur 20 qAM and on dhiraj 25 as per HTN 01/2019 increased edema c mild GALICIA since increase of nenita 100 TID to 200 TID; therefore, 03/27/19 BNP 167, weaned off as per lumbar DJD and + fur 20 qAM K/Mg as per hypertension May, Annual physical exam (ICD-10 - Z00.00) May, Large granular lymphocytosis (ICD-10 - D72.820) No B-symptoms 01/03/20 5.1, 15.6, 98, 181K, LDH 203 c WNL iso 02/2019 4.5, 14.5, 97, 162 06/2018 4.9, 15.4, 97, 193 02/2018 4.4, 14.5, 97. 180K 06/2017 4.6, 14.1, 98, 195K 10/2016 6.9, 14.4, 98, 191K 12/2015 stable at 5.0, 14.1, 190K 09/2018 sIFE s MCB 06/2018 normal SPEP May, Osteoarthritis of both knees (ICD-10 - M17.0) Stable on home PT, diclof 1% QID prn 03/2018 - B knee 3 phase BS 02/2018 R knee JL flare x 1M, seeing [facility] in 3D, may require repeat R TKR May, Colon cancer screening (ICD-10 - Z12.11) repeat 03/2020-W 05/29/20 consents to "final" screening colon May, Osteopenia, unspecified location (ICD-10 - M85.8 0) recheck BMD 10/2020 BMD -0.4/-0.7/-0.7 c -2/-2/-3% change cw 10/2014; therefore, CCR May, Hypertension (ICD-10 - I10) Good control on dhiraj 25 qAM, fur 20 qAM 01/13/20 4.3, 0.8 02/2019 2.3, 4.1, 0.7 02/2018 4.1, 2.2, 0.9 02/2017 0.7, 4.1, Mg 2.2 on dhiraj 25 qAM and indapamide 1.25 qAM c SBP 90-110; therefore, held indapamide and c/b BID HBPs 06/2016 4.3, 2.2, 0.8 10/2015 4.0, Mg 2.3, 0.7 04/2015 Antecol HCTZ 12.5 changed to indapamide 1.25 and spirolactone 25 QD for unknown reason 07/03/18 SB 56, 1 AVB (268 ms) c occasional PVCs, iRBBB, LAFB, similar to 01/21/16 EKG May, AAA (abdominal aortic aneurysm) without rupture (ICD-10 - I71.4) sp endovascular AAA repair by Radha 01/09/20CTA AP c stable stent by Ramos follows with [facility] May, Hyperlipidemia (ICD-10 - E78.5) 05/15/20 54/51/141 02/2019 57/50/146 02/2018 43/48/136, 73, <0.3 06/2017 48/55/111, 56, <0.3 atorva 40 02/2017 68/49/139 on atorva 10; but 2 lacunar CVA; increased to 40 (06/28 80) 05/15/20 1.0, 1.1 09/2018 1.1, 0.9 10/2015 0.03 December 2010 TSH 0.6 May, Allergic rhinitis, cause unspecified (ICD-10 - J 30.9) Stable off medications May, History of lacunar cerebrova scular accident (CVA) (ICD-10 - Z86.73) No recurrent symptoms 03/10/17 B carotid US c R CCA, B ECA, B ICA decreased flows; check CTA chest 02/2017 on asa 81; therefore, changed to clopid 75 and increased to HI statin May, Vitamin B12 deficiency (ICD-10 - E53.8) hgb as per LGL 01/03/20 811 on 1000 06/2017 B12 914 on 1000 QD 06/2017 RBC folate 603 May, Ascending aortic aneurysm (ICD-10 - I71.2) Patient remains asymptomatic Repeat TTE 07/2020 root at 39, AA 40 07/2017 stable at 40 10/2016 CT chest c maximal AP diameter 49 06/2016 TTE c mild progression to 44 02/2015 TTE c mild dilitation of proximal ascending aorta May, Actinic keratoses (ICD-10 - L57.0) Stable skin exam follows with Dr. Mcmillan May, Depression (ICD-10 - F32.9) Stable on sert 100 02/2017 increased back to 100 to 150 QD given stress c CVA; then, decreased to 100 QD p 8W given improved mood 03/2013 decreased self 150 to 100 qd May, Insomnia (ICD-10 - G47.00) Stable on zolpidem 10 ~q14D 10/2016 Lunesta 3 qhs prn (using ~q2W) changed to zolpidem 10 by i-started 02/2017May, Vitamin D deficiency (ICD-10 - E55.9) rx as per hyperCa May, H/O food anaphylaxis (ICD-10 - Z91.018) Stable on EpiPen prn May, Breast cancer screening (ICD-10 - Z12.39) 10/2019 B C1 mammogram May, JEANMARIE (obstructive sleep apnea) (ICD-10 - G47.33) Encouraged compliance with CPAP 6 cm H20 [address] Washington May, Herpes gingivostomatitis (ICD-10 - B00.2) Stable on valcic 2 BID x 1D prior PLAN OF TREATMENT Medication Medication Name Sig Start Date Stop Date EpiPen 2-Kam 0.3 MG/0.3ML (1:1000) 1 injection Intramu scular as needed for allergic reaction for 90 day(s) Sertraline HCl 100 MG 1 tablet Orally Once a day for 90 day(s) Tizanidine HCl 2 MG 1 tablet as needed Orally twice a day prn fo r 90 day(s) Hydrocodone-Acetaminophen 5-325 MG 1 tablet as needed Orally BID prn pain for 30 day(s) May, Atorvastatin Calcium 80 MG 1 tablet Orally Once a day for 90 day (s) Clopidogrel Bisulfate 75 MG 1 tablet Orally Once a day for 90 da y(s) Lasix 20 MG 1 tablet Orally every morning for 90 day(s) Nasonex 50 MCG/ACT 2 sprays in each nostril Nasally Once a day f or 30 day(s) Spironolactone 25 mg 1 tablet Orally once a day for 90 day(s) Vitamin B-12 1000 MCG 1 tablet Orally Once a day Valtrex 1 GM 2 tablets Orally Every 12 hours x 1 day as neede d for 90 day(s) Ergocalciferol 13374 UNIT 1 capsule Orally every 14 days for 90 day(s) Zolpidem Tartrate 10 MG 1 tablet at bedtime as neede d Orally at bedtime for 90 day(s) Voltaren 1 % 4 gm Transdermal four times daily to sophia ateral knees for 30 day(s) Treatment Notes Assessment Notes Clinical Notes Vitamin B12 deficiency hgb as per LGL01/02 811 on 8795306/2017 B12 914 on 1000 QD06/2017 RBC folate 603 Impaired fasting glucose Continue ADA di et/weight loss05/05 5.2 (90, 19)06/2018 5. 5.4 c ADEEL-IR 2 (91, 10)10/2016 A1C 5. COLLEEN/creatinine 7 History of lacunar cerebrovascular accident (CVA) No recurrent symptoms03/10/17 B carotid US c R CCA, B ECA, B ICA decreased flows; check CTA chest02/2017 on asa 81; therefore, changed to clopid 75 and increased to HI statin DJD (degenerative joint disease), lumbar on home PT/daily walking and nenita 200 TID, tiz 2 BID prn and aceto 500-1000 TID (MDD 3000) and rare HC wean off nenita 200 TID to 100 TID, then off10/2018 for LESI per Rex given no benefit R hip c ~4W vnxvbrgttoe55/2018 improved c [facility] PT per Dali, CT LS spine as per 01/2016 Skelaxin 800 BID prn changed to tizad 2 BID prn by i Actinic keratoses Stable skin examfoll ows with Dr. Mcmillan Hypercalcemia Patient remains asym ptomatic1-2 servings dietary Ca QD (lactose intolerant)Contingency: repeat sestamibi, D2 to D3 1Kfavor 2 mild 1HPT05/15/20 50, 10, 141; therefore, D203/2019 43, 9.9, 159; 24H urine Ca 180/cr 964 (Ca-cr ratio 0.19); therefore, cw 1HPT (rather than [facility])09/2018 46, 9.5, 13006/2018 10.2, 137; on D2 q14D (off indap and Ca)02/2018 44, 9.9, 99; therefore, stopped Ca 60006/2017 46, 10.0, 9102/2017 59, 10.4, 89-held idapamide 1.25 qAM as per HTN10/2016 54, 10.0, 93 on Drisdol qoW and Ca 600 QD06/2016 91, 10.4, 103 on Drisdol qW; therefore, decreased to qoW7/2011 calcium 10.0, PTH 56 of HCTZ 12.5 and lisinopril 10 daily-therefore no real change, therefore switch back to HCTZ given increased edema of itMay 2010 calcium 10.0 with PTH of 41 not on calcium supplementation, on HCTZ 12.5 dailyFebruary 2010 normal parathyroid sestamibi scan09/2018 Yasmin davis MCB, Ascending aortic aneurysm Patient remain s asymptomaticRepeat TTE root at 39, AA 402/2017 stable at 405/2017 CT chest c maximal AP diameter 491 TTE c mild progression to 449 TTE c mild dilitation of proximal ascending aorta Chronic diastolic heart failure Euvolemi c on fur 20 qAM and on dhiraj 25 as per HTN01/2019 increased edema c mild GALICIA since increase of nenita 100 TID to 200 TID; therefore, 03/27/19 BNP 167, weaned off as per lumbar DJD and + fur 20 qAMK/Mg as per hypertension Insomnia Stable on zolpidem 1 0 ~q14D10/2016 Lunesta 3 qhs prn (using ~q2W) changed to zolpidem 10 by i-started 02/2017 Large granular lymphocytosis No B-sympto ms01/03/20 5.1, 15.6, 98, 181K, LDH 203 c WNL iso02/2019 4.5, 14.5, 97, 1621 4.9, 15.4, 97, 1939 4.4, 14.5, 97. 180K1 4.6, 14.1, 98, 195K5 6.9, 14.4, 98, 191K12/2015 stable at 5.0, 14.1, 190K4 Yasmin davis [facility] normal SPEP Depression Stable on sert 1002016 increased back to 100 to 150 QD given stress c CVA; then, decreased to 100 QD p 8W given improved mood03/2013 decreased self 150 to 100 qd Osteoarthritis of both knees Stable on h ome PT, diclof 1% QID prn1 - B knee 3 phase BS02/2018 R knee JL flare x 1M, seeing [facility] in 3D, may require repeat R TKR H/O food anaphylaxis Stable on EpiPen pr n Colon cancer screening repeat 03/2020-W1 07/30/19 consents to "final" screening colon Vitamin D deficiency rx as per hyperCa Breast cancer screening 10/2019 B C1 mamm ogram Allergic rhinitis, cause unspecified Sta ble off medications Herpes gingivostomatitis Stable on valci c 2 BID x 1D prior Hyperlipidemia 05/15/20 / 2018 /2017 43/48/136, 73, <0. 48/55/111, 56, <0.3 atorva 409/2017 68/49/139 on atorva 10; but 2 lacunar CVA; increased to 40 (1/2 80)05/15/20 1.0, 1. 1.1, 0. 0.9June 2010 TSH 0.6 JEANMARIE (obstructive sleep apnea) Encouraged compliance with CPAP [id number] Washington Osteopenia, unspecified location recheck BMD BMD -0.4/-0.7/-0.7 c -2/-2/-3% change cw 10/2014; therefore, CCR Hypertension Good control on spir o 25 qAM, fur 20 qAM01/13/20 4.3, 0. 2.3, 4.1, 0. 4.1, 2.2, 0. 0.7, 4.1, Mg 2.2 on dhiraj 25 qAM and indapamide 1.25 qAM c SBP 90-110; therefore, held indapamide and c/b BID HBPs06/2016 4.3, 2.2, 0. 4.0, Mg 2.3, 0.711 Antecol HCTZ 12.5 changed to indapamide 1.25 and spirolactone 25 QD for unknown reason07/03/18 SB 56, 1 AVB (268 ms) c occasional PVCs, iRBBB, LAFB, similar to 01/21/16 EKG AAA (abdominal aortic aneurysm) without rupture sp endovascular AAA repair by Radha01/09/20CTA AP c stable stent by Caitlyn with [facility] Treatment Notes Test Name Order Date [facility] Sudheer Screening Bilateral (Ultrasound if Indicated ) (3D Mammo) 2020-06-02 Dexa, Full Body 2020-06-02 Future Test Test Name Order Date VITAMIN D 25-HYDROXY [id number] Comprehensive Metabolic Profile (CMP) [id number] PTH INTACT [id number] CBC with Differential 20200927 LDH ISOENZYMES 20200927 VITAMIN B12 LEVEL 20200927 NT-PRO BNP 20200927 MAGNESIUM LEVEL 20200927 Next Appt Details 30 minutes 4M, BW 1W prior Reason: Insurance Providers Payer Name Payer Address Payer Phone Insured Name Patient Relati onship to Insured Coverage Start Date Coverage End Date [facility] [address] [address] [facility] [phone] [place] self
--- OUTSIDE RECORDS SUMMARY | 2020-08-11 11:51 | CCD ---
Author Author [facility] Organization 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 Active 067874471 Problem Hypertension I10 Active 46575021 Problem Vitamin D deficiency E55.9 Active 22737437 Problem Breast cancer screening Z12.39 Active 33310646 6 Problem Impaired fasting glucose R73.01 Active 8328382 07 Problem Depression F32.9 Active 78040972 Problem Actinic keratoses L57.0 Active 156993783 Problem JEANMARIE (obstructive sleep apnea) G47.33 Active 78 421999 Problem Hypercalcemia E83.52 Active 14525504 Problem Vitamin B12 deficiency E53.8 Active 908721166 Problem Herpes gingivostomatitis B00.2 Active 2366008 7 Problem Chronic diastolic heart failure I50.32 Active 661961680 Problem 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 Active 418 392455 Problem Colon cancer screening Z12.11 Active 748859681 Problem Osteoarthritis of both knees M17.0 Active 239 230960 Problem Insomnia G47.00 Active 375307941 Problem Allergic rhinitis, cause unspecified J30.9 Act jesus 90075941 Problem 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 Active 043004852 Problem History of lacunar cerebrovascular accident (CVA) Z86.73 Active 59850016337109 Problem AAA (abdominal aortic aneurysm) without rupture I7 1.4 Active 64216500 Problem Osteopenia, unspecified location M85.80 Active 541583913 ALLERGIES Allergen (clinical drug ingredient) Drug/Non Drug Allergy do cumented on EMR Reaction Allergy Type Onset Date Status fish Anaphylaxis Non Drug Allergy Active Sulfa (for allergy use only) itching, vomiting Drug Allerg y Active ENCOUNTERS from 1945 to 2020-06-09 Encounter Location Date Provider Diagnosis [id number] [place] [address] 16 Dec, 2 020 Antoine Morgan Impaired fasting glucose R73.01 ; DJD (degenerative joint disease), lumbar M47.816 ; Hypercalcemia E83.52 ; Chronic diastolic heart failure I50.32 ; Annual physical exam Z00.00 ; 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 ; Osteoarthritis of both knees M17.0 ; Osteopenia, unspecified location M85.80 ; Hypertension I10 ; AAA (abdominal aortic aneurysm) without rupture I71.4 ; Colon cancer screening Z12.11 ; Hyperlipidemia E78.5 ; Allergic rhinitis, cause [...] IMMUNIZATIONS Vaccine Route Administration Date Status Influenza (Pharmacy Given) Unknown Feb 14, 2020 Admin istered Influenza (18 yrs & older) Flublok IM Intramuscular Mar 27, 2019 Administered Zoster 50mcg/0.5mL (Shingrix) IM Intramuscular October 25, 2017 A dministered Zoster 50mcg/0.5mL (Shingrix) IM Intramuscular Mar 10, 2018 A dministered Influenza (Pharmacy Given) IM Intramuscular Mar 31, 2018 Admi nistered Influenza (6mo & up) Fluzone Unknown Mar 26, 2011 Adm inistered Influenza (High Dose 65 & up) IM Intramuscular Mar 10, 2017 A dministered Influenza (High Dose 65 & up) IM Intramuscular Mar 07, 2015 A dministered Zoster 0.65mL (Zostavax) IM Intramuscular November 24, 2010 Admini stered Pneumococcal Adult 0.5mL (Pneumovax 23) IM Intramuscular Apr 10, 2019 Administered TDAP 0.5mL (Boostrix) IM Intramuscular May 05, 2019 Administe red TDAP 0.5mL (Boostrix) IM Intramuscular November 24, 2010 Administe red Pneumococcal 0.5mL (Prevnar 13) IM Intramuscular Jul 03, 2015 Administered Influenza (6mo & up) Fluzone IM Intramuscular Apr 18, 2013 Ad ministered SOCIAL HISTORY Sex Assigned At : Social History Observation Description Sex Assigned At Unknown Language: Question Answer Notes Languages spoken: Romanian Restorationism: Question Answer Notes Restorationism 13 Jew Sexual Hx: Question Answer Notes Had sex [...] FOR REFERRAL No Information VITAL SIGNS Weight 256 lbs Dec, Height 70 in Dec, BMI 36.73 kg/m2 Dec, Heart Rate 64 /min Dec, Respiratory Rate 20 /min Dec, Temperature 97.0 degrees Fahrenheit Dec, Oximetry 96% Dec, Blood pressure systolic 132 mm Hg Dec, Blood pressure diastolic 80 mm Hg Dec, MEDICATIONS Medication SIG (Take, Route, Frequency, Duration) Notes Start Da te End Date Status Voltaren 1 % 4 gm Transdermal four times daily to sophia ateral knees for 30 day(s) Active Ergocalciferol 40247 UNIT 1 capsule Orally every 14 days [...] Information RESULTS No Results REASON FOR VISIT 6 month f/u, Reference #: [id number] last filled 10/03/2019 MEDICAL (GENERAL) HISTORY Type Description Date Medical History iron deficiency anemia secon urszula to probable NSAID-induced gastritis on both Naprosyn [...] atherosclerosis on B carotid siphons Surgical History EGD/ykeingtshnm-kzskshgspwpaks-Whkknxg S eptember 1999 Surgical History colonoscopy-diverticulosis/h emorrhoids/hyperplastic polyp-Vicenta March 2010 Surgical History R TKR-Yari 01/2007 Surgical History endovascular AAA repairc coi ling B accessory renal arteries, 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-Alvin 11/20/14 Surgical History L TKR-Javon 02/04/16 Surgical History hammerhead toe qgotm-Gkswaj-WXSX 7 Hospitalization History small acute lacunar CVA [...] Notes Treatment Notes Treatm ent Clinical Notes Dec, Impaired fasting glucose (ICD-10 - R73.01) Continue ADA diet/weight loss 03/2019 5.4 06/2018 5.8 09/2017 5.4 c ADEEL-IR 2 (91, 10) 10/2016 A1C 5.3 06/2018 7 09/2017 8 06/2016 COLLEEN/creatinine 7 Dec, DJD (degenerative joint disease), lumbar (ICD-10 - M47.816) on home PT/daily walking and nenita 200 TID, tiz 2 BID prn and aceto 500-1000 TID (MDD 3000) and rare HC 5 02/2019 wean off nenita 200 TID to 100 TID, then off 10/2018 for HEATHER luigi Rex given no benefit R hip c ~4W improvement 05/2018 improved c [facility] PT per Dali, CT LS spine as per 01/2016 Skelaxin 800 BID prn changed to tizad 2 BID prn by i Dec, Hypercalcemia (ICD-10 - E83.52) Patient remains asymptomatic 1-2 servings dietary Ca QD (lactose intolerant) Contingency: repeat sestamibi favor 2 mild 1HPT 03/2019 43, 9.9, 159; 24H urine Ca [...] July 2010 normal parathyroid sestamibi scan 09/2018 Yasmin davis MCB, Dec, Chronic diastolic heart failure (ICD-10 - I50.32 ) Euvolemic on fur 20 qAM and on dhiraj 25 as per HTN 01/2019 increased edema c mild GALICIA since increase of nenita 100 TID to 200 TID; therefore, 03/27/19 BNP 167, weaned off as per lumbar DJD and + fur 20 qAM K/Mg as per hypertension Dec, Annual physical exam (ICD-10 - Z00.00) Dec, Large granular lymphocytosis (ICD-10 - D72.820) No B-symptoms 01/03/20 5.1, 15.6, 98, 181K, LH 203 c WNL iso 02/2019 4.5, 14.5, 97, 162 06/2018 4.9, 15.4, 97, 193 02/2018 4.4, 14.5, 97. 180K 06/2017 4.6, 14.1, 98, 195K 10/2016 6.9, 14.4, 98, 191K 12/2015 stable at 5.0, 14.1, 190K 09/2018 sIFE s MCB 06/2018 normal SPEP Dec, Osteoarthritis of both knees (ICD-10 - M17.0) Stable on home PT, diclof 1% QID prn 03/2018 - B knee 3 phase BS 02/2018 R knee JL flare x 1M, seeing [facility] in 3D, may require repeat R TKR Dec, Osteopenia, unspecified location (ICD-10 - M85.8 0) recheck BMD 10/2020 BMD -0.4/-0.7/-0.7 c -2/-2/-3% change cw 10/2014; therefore, CCR Dec, Hypertension (ICD-10 - I10) Good control on [...] PVCs, iRBBB, LAFB, similar to 01/21/16 EKG Dec, AAA (abdominal aortic aneurysm) without rupture (ICD-10 - I71.4) sp endovascular AAA repair by Radha 01/09/20CTA AP c stable stent by [place] follows with [facility] Dec, Colon cancer screening (ICD-10 - Z12.11) repeat 03/2020-W Dec, Hyperlipidemia (ICD-10 - E78.5) 02/2019 57/50/146 02/2018 43/48/136, 73, <0.3 06/2017 48/55/111, 56, <0.3 atorva 40 02/2017 68/49/139 on atorva 10; but 2 lacunar CVA; increased to 40 (1/2 80) 02/2019 normal LFTs 09/2018 1.1, 0.9 10/2015 0.03 December 2010 TSH 0.6 Dec, Allergic rhinitis, cause unspecified (ICD-10 - J 30.9) Stable off medications Dec, History of lacunar cerebrova scular accident (CVA) (ICD-10 - Z86.73) No recurrent symptoms 03/10/17 B carotid US c R CCA, B ECA, B ICA decreased flows; check CTA chest 02/2017 on asa 81; therefore, changed to clopid 75 and increased to HI statin Dec, Vitamin B12 deficiency (ICD-10 - E53.8) hgb as per LGL 01/03/20 811 on 1000 06/2017 B12 914 on 1000 QD 06/2017 RBC folate 603 Dec, Ascending aortic aneurysm (ICD-10 - I71.2) Patient remains asymptomatic Repeat TTE 07/2020 root at 39, AA 40 07/2017 stable at 40 10/2016 CT chest c maximal AP diameter 49 06/2016 TTE c mild progression to 44 02/2015 TTE c mild dilitation of proximal ascending aorta Dec, Actinic keratoses (ICD-10 - L57.0) Stable skin exam follows with Dr. Mcmillan Dec, Depression (ICD-10 - F32.9) Stable on sert 100 02/2017 increased back to 100 to 150 QD given stress c CVA; then, decreased to 100 QD p 8W given improved mood 03/2013 decreased self 150 to 100 qd Dec, Insomnia (ICD-10 - G47.00) Stable on zolpidem 10 ~q14D 10/2016 Lunesta 3 qhs prn (using ~q2W) changed to zolpidem 10 by i-started 02/2017Dec, Vitamin D deficiency (ICD-10 - E55.9) rx as per hyperCa Dec, H/O food anaphylaxis (ICD-10 - Z91.018) Stable on EpiPen prn Dec, Breast cancer screening (ICD-10 - Z12.39) 10/2019 B C1 mammogram Dec, JEANMARIE (obstructive sleep apnea) (ICD-10 - G47.33) Encouraged compliance with CPAP 6 cm H20 follows with Dr. Washington Dec, Herpes gingivostomatitis (ICD-10 - B00.2) Stable on [...] as neede d for 90 day(s) Ergocalciferol 49032 UNIT 1 capsule Orally every 14 days for 90 day(s) Zolpidem Tartrate 10 MG 1 tablet at bedtime as neede d Orally at bedtime for 90 day(s) Voltaren 1 % 4 gm Transdermal four times daily to sophia ateral knees for 30 day(s) Treatment Notes Assessment Notes Clinical Notes Vitamin B12 deficiency hgb as per LGL01/02 811 on B12 914 on 1000 QD06/2017 RBC folate 603 Impaired fasting glucose Continue ADA di et/weight loss03/2019 5. 5. 5.4 c ADEEL-IR 2 (91, 10)10/2016 [...] given no benefit R hip c ~4W /2018 improved c [facility] PT per Dali, CT LS spine as per 01/2016 Skelaxin 800 BID prn changed to tizad 2 BID prn by i Actinic keratoses Stable skin examfoll ows with Dr. Mcmillan Hypercalcemia Patient remains asym ptomatic1-2 servings dietary Ca QD (lactose intolerant)Contingency: repeat sestamibifavor 2 mild 1HPT03/2019 43, 9.9, 159; 24H urine Ca 180/cr 964 (Ca-cr ratio 0.19); therefore, cw 1HPT (rather than [facility])09/2018 46, 9.5, 1301/2018 10.2, 137; on D2 q14D (off indap and Ca)02/2018 44, 9.9, 99; therefore, stopped Ca 60006/2017 46, 10.0, 9102/2017 59, 10.4, 89-held idapamide 1.25 qAM as per HTN10/2016 54, 10.0, 93 on Drisdol qoW and Ca 600 QD06/2016 91, 10.4, 103 on Drisdol qW; therefore, decreased to qoW12/2010 calcium 10.0, PTH 56 of HCTZ 12.5 [...] diameter 491 TTE c mild progression to 449/2014 TTE c mild dilitation of proximal ascending [...] No B-sympto ms01/03/20 5.1, 15.6, 98, 181K, LH 203 c WNL iso02/2019 4.5, 14.5, 97, 1621 4.9, 15.4, 97, 1939 4.4, 14.5, 97. 180K1/2017 4.6, 14.1, 98, 195K5 6.9, 14.4, 98, 191K/2015 stable at 5.0, 14.1, 190K4 Yasmin davis [...] food anaphylaxis Stable on EpiPen pr n Osteopenia, unspecified location recheck BMD BMD -0.4/-0.7/-0.7 c -2/-2/-3% change cw 10/2014; therefore, CCR Vitamin D deficiency rx as per hyperCa Breast cancer screening 10/2019 B C1 mamm ogram Allergic rhinitis, cause unspecified Sta ble off medications Herpes gingivostomatitis Stable on valci c 2 BID x 1D prior Hyperlipidemia 02/2019 /20 18 43/48/136, 73, <0. 48/55/111, 56, <0.3 atorva 68/49/139 on atorva 10; but 2 lacunar CVA; increased to 40 (1/2 80)02/2019 normal LFTs09/2018 1.1, 0. 0.9June 2011 TSH 0.6 JEANMARIE (obstructive sleep apnea) Encouraged compliance with CPAP [id number] Washington Hypertension Good control on spir o 25 [...] AP c stable stent by Caitlyn with [facility] Colon cancer screening repeat 03/2020-W Next Appt Details 30 minutes 4M, BW 1W prior Reason: Insurance Providers Payer Name Payer Address Payer Phone Insured Name Patient Relati onship to Insured Coverage Start Date Coverage End Date tocario PLANS [address] [address] [facility] [id number] [place]
--- OUTSIDE RECORDS SUMMARY | 2020-08-11 11:51 | CCD | Continuity of Care Document ---
Author Author Estephania SHEARER PA Organization Unknown Address [address], [address] [place] [address] Phone [phone] Care Team Providers Care Deputy Chief Counsel Name Role Phone Antoine Morgan M.D. AUTM [phone] [facility] - Private Location [facility] - [email or web address] So - Medical Records AUTM [phone] Problems Active Problems Provider Date Impacted cerumen [place] MD Onset: 04/18/2012 Chronic otitis externa [place] MD Onset: 04/18/20 12 Essential hypertension Burt Mathew M.D. Onset: 017 Body mass index 30+ - obesity [place] Orta A.N.P. Onset: Obesity [place] Orta A.N.PAna Onset: 05/11/2011 Ex-smoker [place] Orta A.N.PAna Onset: 05/11/2011 Obstructive sleep apnea syndrome [place] Orta A.N.PAna Onset: 05/11/2011 Social History Type Date Description Comments Sex Unknown Cigarette Use Pack Years - 20 ETOH Use Rarely consumes alcohol Tobacco Use Start: Unknown End: Patient is a former smoker 1 PPD X 20 YRS Recreational Drug Use Denies Drug Use Smoking Status Reviewed: 07/14/20 Patient is a former smoker 1 PPD X 20 YRS Allergies, Adverse Reactions, Alerts Active Allergies Reaction Severity Comments Date Sulfa REDNESS,ITCHING 08/09/2011 Fish-derived Products ANAPHYLAXIS 2018 Medications Active Medications SIG Qnty Indications Ordering Provide r Date Zoloft 100mg Tablets 1 tab by mouth every day at bedtime 30tabs Unknown Vitamin B12 1000mcg Tablets ER 1 tab by mouth every day 30tabs Unknown Atorvastatin Calcium 40mg Tablets 1 tab by mouth every day Unknown Plavix 75mg Tablets 1 tab by mouth every day 30tabs Unknown Epinephrine HCL 0.1m g/ml Soln Prefill Syringe as needed Unknown Vitamin D (Ergocalciferol) 09221Gqfh Capsules 1 cap by mouth every other week Unknown Spironolactone 25mg Tablets 1 tab by mouth every day 30tabs Unknown Tylenol Extra Strength 500mg Table ts 2 by mouth every 4 hours prn Unknown 00 Valtrex 1gm Tablets 1 cap by mouth every 12 hours prn Unknown CPAP 8cm LC-W Unknown Hydrocodone-Acetaminophen 5-325mg Tablets 1 tab by mouth every 4 hours as needed for pain Unknown Zolpidem Tartrate 10mg Tablets 1 tab by mouth as needed Unknown Diphenhydramine HCL 25mg Capsules 1 tab by mouth as needed 60caps Unknown Lasix 20mg Tablets 1 tab by mouth every day 180tabs Unknown Immunizations CPT Code Status Date Vaccine Lot # [id number] Given 04/28/2020 Afluria, Quadrivalent, 0.5ml , [facility]# [id number] [id number] Given 04/03/2014 Influenza Virus Split 3 Yrs And Above For Intramuscular Use Q2036 Given 04/17/2012 Influenza Vaccine 3 Years Of Age Or Older (Flulaval) Q2036 Given 05/11/2011 Influenza Vaccine 3 Years Of Age Or Older (Flulaval) 58551 Given 04/08/2011 Pneumococcal PPSV23 Vital Signs Date Vital Result Comment 07/14/2020 11:40am BP Systolic 132 mmHg BP Diastolic 70 mmHg Height 70 inches 5'10" Weight 259.25 lb BMI (Body Mass Index) 37.2 kg/m2 [place] Body Weight 150 lb Weight 117.596 kg BSA (Body Surface Area) 2.33 m2 05/26/2020 11:15am BP Systolic 120 mmHg BP Diastolic 82 mmHg Heart Rate 81 /min O2 % BldC Oximetry 95 % Height 70 inches 5'10" Weight 260.00 lb BMI (Body Mass Index) 37.3 kg/m2 [place] Body Weight 150 lb Weight 117.936 kg BSA (Body Surface Area) 2.33 m2 Results Test Acquired Date Facility Test Result H/L Range Note BUN & Creatinine ([facility]) 06/30/2020 [facility] Main Lab [address] [place], [place] [id number] [phone] Blood Urea Nitrogen 21 mg/dL High 7-18 Creatinine With GFR 06/30/2020 [facility] nter Main Lab [address] [place] [address] [phone] Creatinine For GFR 0.83 mg/dL Normal 0.55-1.30 Glomerular Filtration Rate > 60.0 Normal >39 1 1 Units are mL/min/1.73 m2 Chronic Kidney Disease Staging per NKF: Stage I & II GFR >=60 Normal to Mildly Decreased Stage III GFR 30-59 Moderately Decreased Stage IV GFR 15-29 Severely Decreased Stage V GFR <15 Very Little GFR Left ESRD GFR <15 on BLUE CRABBER Procedures Description No Information Available Medical Devices Description No Information Available Encounters Type Date Location Provider Dx Diagnosis Office Visit 05/26/2020 11:30a [facility] GAYE Sierra G47.33 Obstructive sleep apnea (adult) (pediatr ic) Office Visit 01/16/2020 9:15a [facility] MICHELLE Naqvi I71.4 Abdominal aortic aneurysm, without ruptu re Z95.828 Presence of other vascular i mplants and grafts I83.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 bi low ext rem w oth complications Assessments Date Code Description Provider 05/26/2020 G47.33 Obstructive sleep apnea (adult) (pediatric) GAYE Schaffer 01/16/2020 I71.4 Abdominal aortic aneurysm, witho ut rupture MICHELLE Rodgers 01/16/2020 Z95.828 Presence of other vascular impla nts and grafts MICHELLE Rodgers 01/16/2020 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
--- OUTSIDE RECORDS SUMMARY | 2020-08-11 11:51 | CCD | Continuity of Care Document ---
Author Author Estephania SHEARER PA Organization Unknown Address [address], [address] [place] [address] Phone [phone] Care Team Providers Care Rn Transport Name Role Phone Antoine Morgan M.D. AUTM [phone] [email or web address] AUTM [phone] [facility] [employer] So - Medical Records AUTM Problems Active Problems Provider Date Impacted cerumen [...] Use Denies Drug Use Smoking Status Reviewed: 05/26/20 Patient is a former smoker 1 PPD [...] Syringe as needed Unknown Vitamin D (Ergocalciferol) 37772Hhkd Capsules 1 cap by mouth every other [...] CPT Code Status Date Vaccine Lot # [id number] Given 04/28/2020 Afluria, Quadrivalent, 0.5ml , [facility]# [id number] Given 04/03/2014 Influenza Virus Split 3 Yrs And Above For Intramuscular Use Q2036 Given 04/17/2012 Influenza Vaccine 3 Years Of Age Or Older (Flulaval) Q2036 Given 05/11/2011 Influenza Vaccine 3 Years Of Age Or Older (Flulaval) 58232 Given 04/08/2011 Pneumococcal PPSV23 Vital Signs Date Vital Result Comment 05/26/2020 11:15am BP Systolic 120 mmHg BP Diastolic 82 mmHg Heart Rate 81 /min O2 % BldC Oximetry 95 % Height 70 inches 5'10" Weight 260.00 lb BMI (Body Mass Index) 37.3 kg/m2 [place] Body Weight 150 lb Weight 117.936 kg BSA (Body Surface Area) 2.33 m2 01/16/2020 9:27am BP Systolic 104 mmHg BP Diastolic 72 mmHg Height 70 inches 5'10" Weight 256.38 lb BMI (Body Mass Index) 36.8 kg/m2 [place] Body Weight 150 lb Weight 116.292 kg BSA (Body Surface Area) 2.32 m2 Results Test Acquired Date Facility Test Result H/L Range Note BUN & Creatinine ([facility]) 06/30/2020 [facility] Main Lab [address] [place], [place] [id number] [phone] Blood Urea Nitrogen 21 mg/dL High 7-18 Creatinine With GFR 06/30/2020 [facility] Main Lab [address] [place], [place] [id number] [phone] Creatinine For GFR 0.83 mg/dL Normal 0.55-1.30 Glomerular Filtration Rate > 60.0 Normal >39 1 BUN & Creatinine ([facility]) 01/02/2020 [facility] Main Lab [address] [place], [place] [address] [phone] Blood Urea Nitrogen 16 mg/dL Normal 7-18 Creatinine With GFR 01/02/2020 [facility] Main Lab [address] [place] [address] [phone] Creatinine For GFR 0.84 mg/dL Normal 0.55-1.30 Glomerular Filtration Rate > 60.0 Normal >39 2 1 Units are mL/min/1.73 m2 Chronic Kidney Disease Staging per NKF: Stage I & II GFR >=60 Normal to Mildly Decreased Stage III GFR 30-59 Moderately Decreased Stage IV GFR 15-29 Severely Decreased Stage V GFR <15 Very Little GFR Left ESRD GFR <15 on FLOOR LAYER APPRENTICE 2 Units are mL/min/1.73 m2 Chronic Kidney Disease Staging per NKF: Stage I & II GFR >=60 Normal to Mildly Decreased Stage III GFR 30-59 Moderately Decreased Stage IV GFR 15-29 Severely Decreased Stage V GFR <15 Very Little GFR Left ESRD GFR <15 on FLOOR LAYER APPRENTICE Procedures Description No Information Available Medical Devices Description No Information Available Encounters Type Date Location Provider Dx Diagnosis Office Visit 05/26/2020 11:30a [facility] [place] To GAYE morillo G47.33 Obstructive sleep apnea (adult) (pediatr ic) Office Visit 01/16/2020 9:15a [facility] MICHELLE Naqvi I71.4 Abdominal aortic [...] MICHELLE Rodgers Plan of Treatment Future Appointment(s):* 07/14/2020 11:30 am - MICHELLE Rodgers at [facility] * 05/26/2021 1:00 pm - GAYE Schaffer at [facility] 05/26/2020 - GAYE Schaffer* G47.33 Obstructive sleep apnea (adult) (pediatric) * * Follow up:* Follow up in 12 months with compliance report for JEANMARIE-30 Functional Status Description No Information Available Mental Status Description No Information Available Referrals Description No Information Available
--- OUTSIDE RECORDS SUMMARY | 2020-08-11 11:51 | CCD | Continuity of Care Document ---
Author Author Estephania YADAV M.D. Organization Unknown Address [address] [place] [address] Phone [phone] Care Team Providers Care Project Leader Name Role Phone Antoine Morgan MD [facility] [[email or web address]] [phone] Problems Active Problems Provider Date Screening for malignant neoplasm of colon Collin romeo M.D. Onset: 07/31/2020 Social History Type Date Description Comments Sex Unknown ETOH Use Occasionally Tobacco Use Start: Unknown Patient has never smoked Allergies, Adverse Reactions, Alerts Description No Known Drug Allergies Medications Active Medications SIG Qnty Indications Ordering Provide r Date Sutab [id number] Tablets as directed 1box Collin Yadav M.D. 07/31/2020 Sertraline HCL 100mg Tablets Take One Tablet By Mouth Every Day Unknown Clopidogrel Bisulfate 75mg Tablets Take One Tablet By Mouth Every Day Unknown Spironolactone 25mg Tablets Take One Tablet By Mouth Every Day Unknown Atorvastatin Calcium 80mg Tablets Take One Tablet By Mouth Every Day Unknown Zolpidem Tartrate 10mg Tablets Take One Tablet By Mouth AT Bedtime as Needed Maximum Daily Dose 1 Unknown Valacyclovir HCL 1gm Tablets Take 2 Tablets By Mouth Every 12 Hours For 1 Day as Needed Unknown Hydrocodone-Acetaminophen 5-325mg Tablets Take One Tablet By Mouth Twice A Day as Needed For Pain Maximum Daily Dose 2 Unknown Furosemide 20mg Tablets Take One Tablet By Mouth Every Day In The Morning Unknown 0 Epinephrine 0.3mg/0. 3ML Solution Auto-Inject Inject Intramuscularly as Needed For Allergic Reaction Unknown Vitamin B12 1000mcg Tablets ER Unknown Vitamin D2 400Unit Tablets Unknown Benadryl Allergy 25mg Tablets 2 tabs [address] scan Unknown Tylenol 325mg Capsules Unknown Immunizations Description No Information Available Vital Signs Date Vital Result Comment 07/31/2020 1:29pm Height 69 inches 5'9" Weight 256.00 lb BP Systolic 136 mmHg BP Diastolic 92 mmHg Heart Rate 78 /min BMI (Body Mass Index) 37.8 kg/m2 Weight 116.122 kg Body Temperature 97.2 F Results Description No Information Available Procedures Description No Information Available Medical Devices Description No Information Available Encounters Type Date Location Provider Dx Diagnosis Office Visit 07/31/2020 1:45p Main Office Collin Yadav M.D. Z 12.11 Encounter for screening for malignant neoplasm of colon K21.9 Gastro-esophageal reflux dis ease without esophagitis Assessments Date Code Description Provider 07/31/2020 Z12.11 Screening for malignant neoplasm of colon Collin Yadav M.D. 07/31/2020 K21.9 Gastroesophageal reflux disease Collin Yadav M.D. Plan of Treatment Future Appointment(s):* 08/06/2020 7:15 am - [facility] at Main Office * 08/11/2020 1:15 pm - Collin Yadav M.D. at Main Office 07/31/2020 - Collin Yadav M.D.* Z12.11 Screening for malignant neoplasm of colon* Comments:* 74 yo wf who presents for a screening colonoscopy + egd for heartburn, r/o intestinal metaplasia. due to a h/o colonic polyps. Last scope was in 2010. No c/o abdominal pain, weight loss, change in bowel habits, or rectal bleeding. No family h/o colon cancer. No h/o chest pain, or sob. Plan:1. Colonoscopy + egd.2. Informed consent. * K21.9 Gastroesophageal reflux disease* Comments:* As above. Functional Status Description No Information Available Mental Status Description No Information Available Referrals Description No Information Available
--- OUTSIDE RECORDS SUMMARY | 2020-08-11 11:51 | CCD ---
Continuity of Care Document (CCD) Created on: 08/04/2020 Estephania Oh External Reference #: [id number] : [id number] Sex: Female Author Author Estephania YADAV M.D. Organization Unknown Address [address] [place] [address] Phone [phone] Care Team Providers Care Fitness Assistant Name Role Phone Antoine Morgan MD [facility] [phone] Problems Active Problems Provider Date Screening for malignant neoplasm of colon Collin romeo M.D. Onset: 07/31/2020 Social History Type Date Description Comments Sex Unknown ETOH Use Occasionally Tobacco Use Start: Unknown Patient has never smoked Allergies, Adverse Reactions, Alerts Description No Known Drug Allergies Medications Active Medications SIG Qnty Indications Ordering Provide r Date Sutab [id number] Tablets as directed 1box Collin Yadav M.D. [...] Medical Devices Description No Information Available Encounters Description No Information Available Assessments Date Code Description Provider 07/31/2020 Z12.11 Screening for malignant neoplasm of colon Collin Yadav M.D. 07/31/2020 K21.9 Gastroesophageal reflux disease Collin Yadav M.D. Plan of Treatment Future App[facility]ment([facility]):* [facility] * 08/11/2020 1:15 pm [...]
--- OUTSIDE RECORDS SUMMARY | 2020-08-11 11:52 | CCD ---
Author Author [facility] Organization [facility] Address Unknown Phone Unavailable Care Team Providers Care Oyster Floater Name Role Phone Juarez Yadav MD Unavailable Unavailable Juarez Yadav MD Unavailable Unavailable Juarez Yadav MD Unavailable Unavailable Juarez Yadav MD Unavailable Unavailable Juarez Yadav MD Unavailable Unavailable Juarez Yadav MD Unavailable Unavailable Juarez Yadav MD Unavailable Unavailable Juarez Yadav MD Unavailable Unavailable Juarez Yadav MD Unavailable Unavailable Juarez Yadav MD Unavailable Unavailable Juarez Yadav MD Unavailable Unavailable Juarez Yadav MD Unavailable Unavailable Juarez Yadav MD Unavailable Unavailable Juarez Yadav MD Unavailable Unavailable Juarez Yadav MD Unavailable Unavailable Juarez Yadav MD Unavailable Unavailable Juarez Yadav MD Unavailable Unavailable Juarez Yadav MD Unavailable Unavailable Juarez Yadav MD Unavailable Unavailable Juarez Yadav MD Unavailable Unavailable Juarez Yadav MD Unavailable Unavailable Juarez Yadav MD Unavailable Unavailable Juarez Yadav MD Unavailable Unavailable Juarez Yadav MD Unavailable Unavailable Juarez Yadav MD Unavailable Unavailable Juarez Yadav MD Unavailable Unavailable Juarez Yadav MD Unavailable Unavailable Vicenta S Collin KAHN Unavailable Unavailable Vicenta, S Collin KAHN Unavailable Unavailable Vicenta, S Collin MD Unavailable Unavailable Vicenta, S Collin KAHN Unavailable Unavailable Vicenta, S Collin MD Unavailable Unavailable Vicenta, S Ocllin MD Unavailable Unavailable Vicenta, S Collin MD Unavailable Unavailable Vicenta, S Collin MD Unavailable Unavailable Vicenta, S Collin MD Unavailable Unavailable Vicenta, S Collin MD Unavailable Unavailable Vicenta, S Collin MD Unavailable Unavailable Vicenta, S Collin MD Unavailable Unavailable Vicenta, S Collin MD Unavailable Unavailable Vicenta, S Collin MD Unavailable Unavailable Vicenta, S Collin MD Unavailable Unavailable Vicenta, S Collin MD Unavailable Unavailable Vicenta, S Collin MD Unavailable Unavailable Vicenta, S Collin MD Unavailable Unavailable Vicenta, S Collin MD Unavailable Unavailable Vicenta, S Collin MD Unavailable Unavailable Vicenta, S Collin MD Unavailable Unavailable Vicenta, S Collin MD Unavailable Unavailable Vicenta, S Collin MD Unavailable Unavailable Patel, L Kizzy PA Unavailable Unavailable Patel, L Kizzy PA Unavailable Unavailable Patel, L Kizzy PA Unavailable Unavailable Patel, L Kizzy PA Unavailable Unavailable Patel, L Kizzy PA Unavailable Unavailable Patel, L Kizzy PA Unavailable Unavailable Patel, L Kizzy PA Unavailable Unavailable Patel, L Kizzy PA Unavailable Unavailable Patel, L Kizzy PA Unavailable Unavailable Patel, L Kizzy PA Unavailable Unavailable Patel, L Kizzy PA Unavailable Unavailable Patel, L Kizzy PA Unavailable Unavailable Patel, L Kizzy PA Unavailable Unavailable Patel, L Kizzy PA Unavailable Unavailable Patel, L Kizzy PA Unavailable Unavailable Patel, L Kizzy PA Unavailable Unavailable Patel, L Kizzy PA Unavailable Unavailable Patel, L Kizzy PA Unavailable Unavailable Patel, L Kizzy PA Unavailable Unavailable Patel, L Kizzy PA Unavailable Unavailable Patel, L Kizzy PA Unavailable Unavailable Patel, L Kizzy PA Unavailable Unavailable Patel, L Kizzy PA Unavailable Unavailable Carty, L Elsa RPA Unavailable Unavailable Carty, L Elsa RPA Unavailable Unavailable Carty, L Elsa RPA Unavailable Unavailable Carty, L Elsa RPA Unavailable Unavailable Carty, L Elsa RPA Unavailable Unavailable Carty, L Elsa RPA Unavailable Unavailable Carty, L Elsa RPA Unavailable Unavailable Carty, L Elsa RPA Unavailable Unavailable Carty, L Elsa RPA Unavailable Unavailable Carty, L Elsa RPA Unavailable Unavailable Carty, L Elsa RPA Unavailable Unavailable Carty, L Elsa RPA Unavailable Unavailable Carty, L Elsa RPA Unavailable Unavailable Carty, L Elsa RPA Unavailable Unavailable Carty, L Elsa RPA Unavailable Unavailable Carty, L Elsa RPA Unavailable Unavailable Carty, L Elsa RPA Unavailable Unavailable Carty, L Elsa RPA Unavailable Unavailable Carty, L Elsa RPA Unavailable Unavailable Carty, L Elsa RPA Unavailable Unavailable Carty, L Elsa RPA Unavailable Unavailable Carty, L Elsa RPA Unavailable Unavailable Carty, L Elsa RPA Unavailable Unavailable Carty, L Elsa RPA Unavailable Unavailable Carty, L Elsa RPA Unavailable Unavailable Carty, L Elsa RPA Unavailable Unavailable Carty, L Elsa RPA Unavailable Unavailable Carty, L Elsa RPA Unavailable Unavailable Carty, L Elsa RPA Unavailable Unavailable Carty, L Elsa RPA Unavailable Unavailable Carty, L Elsa RPA Unavailable Unavailable Carty, L Elsa RPA Unavailable Unavailable You, L Madison POLE INCISOR OPERATOR Unavailable Unavailable You, L Madison POLE INCISOR OPERATOR Unavailable Unavailable You, L Madison POLE INCISOR OPERATOR Unavailable Unavailable You, L Madison POLE INCISOR OPERATOR Unavailable Unavailable You, L Madison POLE INCISOR OPERATOR Unavailable Unavailable You, L Madison POLE INCISOR OPERATOR Unavailable Unavailable You, L Madison POLE INCISOR OPERATOR Unavailable Unavailable You, L Madison POLE INCISOR OPERATOR Unavailable Unavailable You, L Madison POLE INCISOR OPERATOR Unavailable Unavailable You, L Madison POLE INCISOR OPERATOR Unavailable Unavailable You, L Madison POLE INCISOR OPERATOR Unavailable Unavailable You, L Madison POLE INCISOR OPERATOR Unavailable Unavailable You, L Madison POLE INCISOR OPERATOR Unavailable Unavailable You, L Madison POLE INCISOR OPERATOR Unavailable Unavailable You, L Madison POLE INCISOR OPERATOR Unavailable Unavailable You, L Madison POLE INCISOR OPERATOR Unavailable Unavailable You, L Madison POLE INCISOR OPERATOR Unavailable Unavailable You, L Madison POLE INCISOR OPERATOR Unavailable Unavailable You, L Madison POLE INCISOR OPERATOR Unavailable Unavailable You, L Madison POLE INCISOR OPERATOR Unavailable Unavailable You, L Madison POLE INCISOR OPERATOR Unavailable Unavailable You, L Madison POLE INCISOR OPERATOR Unavailable Unavailable Re-disclosure Warning The records that you are about to access may contain information from federally-assisted alcohol or drug abuse programs. If such information is present, then the following federally mandated warning applies: This information has been disclosed to you from records protected by federal confidentiality rules (42 CFR part 2). The federal rules prohibit you from making any further disclosure of this information unless further disclosure is expressly permitted by the written consent of the person to whom it pertains or as otherwise permitted by 42 CFR part 2. A general authorization for the release of medical or other information is NOT sufficient for this purpose. The Federal rules restrict any use of the information to criminally investigate or prosecute any alcohol or drug abuse patient.The records that you are about to access may contain highly sensitive health information, the redisclosure of which is protected by Article 27-F of the [facility] Public Health law. If you continue you may have access to information: Regarding HIV / AIDS; Provided by facilities licensed or operated by the [facility] Office of Mental Health; or Provided by the [facility] Office for People With Developmental Disabilities. If such information is present, then the following [facility] mandated warning applies: This information has been disclosed to you from confidential records which are protected by state law. State law prohibits you from making any further disclosure of this information without the specific written consent of the person to whom it pertains, or as otherwise permitted by law. Any unauthorized further disclosure in violation of state law may result in a fine or intermediate sentence or both. A general authorization for the release of medical or other information is NOT sufficient authorization for further disc losure. Allergies and Adverse Reactions Type Description Substance Reaction Status Data Source(s ) fish fish fish Anaphylaxis Active eCW1 ([facility]) Sulfa (for allergy use only) Sulfa (for allergy use only) Vale lfa (for allergy use only) itching, vomiting Active eCW1 ([facility]) Family History Family Member Name Family Member Gender Family Member Status Date o f Status Description Data Source(s) Unknown Male Problem MEDENT ([facility] () Unknown Female Problem MEDENT ([facility]) Unknown Female Problem MEDENT ([facility] Unknown Female Problem MEDENT ([facility]) Unknown Unknown Problem [facility] ([facility] Unknown Unknown Problem [facility] ([facility]) Encounters Encounter Providers Location Date Indications Data Source(s ) Office Visit Attender: Collin Yadav MD Main Office 12:45:00 PM EST MEDENT ([facility] ) [place] [address] [address] 05/29/2020 12:00:00 AM EST eCW1 ([facility]) Outpatient Attender: Madison Pierson/[place] 05/26/2020 10:30:00 AM EST MEDENT ([facility]) [place] [address] [address] 03/31/2020 12:00:00 AM EDT eCW1 ([facility]) Outpatient Attender: Elsa Pierson/[place] 01/16/2020 09:15:00 AM EDT MEDENT ([facility]) [place] [address] [address] 01/10/2020 12:00:00 AM EDT eCW1 ([facility]) [facility] [address] [address] 12/21/2019 12:00:00 AM EDT eCW1 ([facility]) [place] [address] [address] 12/03/2019 12:00:00 AM EDT eCW1 ([facility]) [facility] [address] [address] 11/15/2019 12:00:00 AM EDT eCW1 ([facility]) [place] [address] [address] 10/02/2019 12:00:00 AM EDT eCW1 ([facility]) [place] [address] [address] 10/01/2019 12:00:00 AM EDT eCW1 ([facility]) [facility] [address] [address] 07/27/2019 12:00:00 AM EST eCW1 ([facility]) Outpatient Attender: Kizzy MARTINEZ Main Office 07/04/2019 09:45:0 0 AM EST MEDENT ([facility]) [facility] [address] [address] 06/25/2019 12:00:00 AM EST eCW1 ([facility]) Immunizations Vaccine Date Status Description Data Source(s) COVID-19 VACCINE, MRNA-1273, LNP-S (MODERNA)/PF 07/23/2020 1 2:00:00 AM EST completed [facility] New in 2011. IIV4 04/28/2020 10:19:00 AM EST completed MEDENT ([facility] ) IIV3. This is one of two codes replacing CVX 15, which is being retired. 02/14/2020 02:15:00 PM EDT [facility] IIV3. This is one of two codes replacing CVX 15, which is being retired. 02/14/2020 02:15:00 PM EDT completed [facility] INFLUENZA VACCINE QUADRIVALENT (65 YR UP)/MF59 C.1/PF 02/14/2020 12:00:00 AM EDT completed [facility] Medications Medication Brand Name Start Date Product Form Dose Route Admi nistrative Instructions Pharmacy Instructions Status Indications Reaction Description Data Source(s) 1.479-0.188 gram 08/01/2020 12:00:00 AM EST tablet 24 USE BY MOUTH DIRECTED USE BY MOUTH DIRECTED SOLD: 08/01/2020 [facility] Sutab Sutab 07/31/2020 12:00:00 AM EST active MEDENT ([facility]) 80 mg 06/11/2020 12:00:00 AM EST tablet 90 TAKE ONE TABLET BY MOUTH EVERY DAY TAKE ONE TABLET BY MOUTH EVERY DAY SOLD: 06/13/2020 [facility] 100 mg 06/11/2020 12:00:00 AM EST tablet 90 TAKE ONE TABLET BY MOUTH EVERY DAY TAKE ONE TABLET BY MOUTH EVERY DAY SOLD: 06/13/2020 [facility] 20 mg 06/11/2020 12:00:00 AM EST tablet 90 TAKE ONE TABLET BY MOUTH EVERY DAY IN THE MORNING TAKE ONE TABLET BY MOUTH EVERY DAY IN THE MORNING SOLD : 06/13/2020 [facility] 25 mg 06/07/2020 12:00:00 AM EST tablet 90 TAKE ONE TABLET BY MOUTH EVERY DAY TAKE ONE TABLET BY MOUTH EVERY DAY SOLD: 06/08/2020 [facility] 1 gram 05/29/2020 12:00:00 AM EST tablet 20 TAKE 2 TABLETS BY MOUTH EVERY 12 HOURS FOR 1 DAY NEEDED TAKE 2 TABLETS BY MOUTH EVERY 12 HOURS F OR 1 DAY NEEDED SOLD: 06/02/2020 [facility] 10 mg 05/29/2020 12:00:00 AM EST tablet 30 TAKE ONE TABLET BY MOUTH AT BEDTIME NEEDED, MAXIMUM DAILY DOSE = 1 TAKE ONE TABLET BY MOUTH AT BEDTIME NEEDED, MAXIMUM DAILY DOSE = 1 SOLD: 06/02/2020 [facility] 1 % 05/29/2020 12:00:00 AM EST gel 100 APPLY 4 GRAMS FOUR TIMES A DAY TO BILATERAL KNEES APPLY 4 GRAMS FOUR TIMES A DAY TO BILATERAL KNEES SOLD : 06/02/2020 [facility] 5-325 mg 05/29/2020 12:00:00 AM EST tablet 14 TAKE ONE TABLET BY MOUTH TWICE A DAY NEEDED FOR PAIN, MAXIMUM DAILY DOSE = 2 TAKE ONE TABLET BY MOUTH TWICE A DAY NEEDED FOR PAIN, MAXIMUM DAILY DOSE = 2 SOLD: 06/02/2020 [facility] Acetaminophen 325 MG / Hydrocodone Yulia trate 5 MG Oral Tablet Hydrocodone- Acetaminophen 5-325 MG Hydrocodone-Acetaminophen 5-325 MG 05/29/2020 12:00:00 AM EST 1.0 {tablet_as_needed} active Hydrocodone-Acetaminophen 5-325 MG eCW1 ([facility]) Acetaminophen 325 MG / Hydrocodone Yulia trate 5 MG Oral Tablet Hydrocodone- Acetaminophen 5-325 MG Hydrocodone-Acetaminophen 5-325 MG 05/29/2020 12:00:00 AM EST 1.0 {tablet_as_needed} active Hydrocodone-Acetaminophen 5-325 MG eCW1 ([facility]) 0.3 mg/0.3 mL 05/29/2020 12:00:00 AM EST auto-injector 2 INJECT INTRAMUSCULARLY NEEDED FOR ALLERGIC REACTION INJECT INTRAMUSCULARLY NEEDED FOR ALLERGIC REACTION SOLD: 06/02/2020 [facility] tizanidine 2 MG Oral Tablet TIZANIDINE HCL 05/29/2020 12:00:[address] tablet 180 TAKE ONE TABLET BY MOUTH TWICE A DAY NEEDED TAKE ONE TABLET BY MOUTH TWICE A DAY NEEDED SOLD: 06/02/2020 [facility] 100 mg 04/04/2020 12:00:00 AM EDT tablet 90 TAKE ONE TABLET BY MOUTH EVERY DAY TAKE ONE TABLET BY MOUTH EVERY DAY SOLD: 04/04/2020 [facility] atorvastatin 80 MG Oral Tablet ATORVASTATIN CALCIUM 04/04/2020 1 2:00:00 AM EDT tablet 90 TAKE ONE TABLET BY MOUTH EVERY D AY TAKE ONE TABLET BY MOUTH EVERY DAY SOLD: 04/04/2020 [facility] 20 mg 04/04/2020 12:00:00 AM EDT tablet 90 TAKE ONE TABLET BY MOUTH EVERY MORNING TAKE ONE TABLET BY MOUTH EVERY MORNING SOLD: 04/04/2020 [facility] 500 mg 02/27/2020 12:00:00 AM EDT capsule 20 TAKE 4 CAPSULES BY MOUTH 60 MINUTES PRIOR TO APPOINTMENT TAKE 4 CAPSULES BY MOUTH 60 MINUTES PRIO R TO APPOINTMENT SOLD: 02/29/2020 [facility] 75 mg 01/11/2020 12:00:00 AM EDT tablet 90 TAKE ONE TABLET BY MOUTH EVERY DAY TAKE ONE TABLET BY MOUTH EVERY DAY SOLD: 01/13/2020 [facility] 75 mg 01/11/2020 12:00:00 AM EDT tablet 90 TAKE ONE TABLET BY MOUTH EVERY DAY TAKE ONE TABLET BY MOUTH EVERY DAY SOLD: 05/11/2020 [facility] 5-325 mg 01/10/2020 12:00:00 AM EDT tablet 60 TAKE ONE TABLET BY MOUTH TWICE A DAY NEEDED FOR PAIN MAXIMUM DAILY DOSE = 2 TABLETS TAKE ONE TABLET BY MOUTH TWICE A DAY NEEDED FOR PAIN MAXIMUM DAILY DOSE = 2 TABLETS SOLD: 01/11/2020 [facility] Acetaminophen 325 MG / Hydrocodone Yulia trate 5 MG Oral Tablet Hydrocodone- Acetaminophen 5-325 MG Hydrocodone-Acetaminophen 5-325 MG 01/10/2020 12:00:00 AM EDT 1.0 {tablet_as_needed} active Hydrocodone-Acetaminophen 5-325 MG eCW1 ([facility]) Acetaminophen 325 MG / Hydrocodone Yulia trate 5 MG Oral Tablet Hydrocodone- Acetaminophen 5-325 MG Hydrocodone-Acetaminophen 5-325 MG 01/10/2020 12:00:00 AM EDT 1.0 {tablet_as_needed} active Hydrocodone-Acetaminophen 5-325 MG eCW1 ([facility]) 25 mg 01/07/2020 12:00:00 AM EDT tablet 90 TAKE ONE TABLET BY MOUTH EVERY DAY TAKE ONE TABLET BY MOUTH EVERY DAY SOLD: 01/09/2020 [facility] 25 mg 01/07/2020 12:00:00 AM EDT tablet 90 TAKE ONE TABLET BY MOUTH EVERY DAY TAKE ONE TABLET BY MOUTH EVERY DAY SOLD: 04/04/2020 [facility] 1,250 mcg (50,000 unit) 12/04/2019 12:00:00 AM EDT capsule 6 TAKE ONE CAPSULE BY MOUTH EVERY 14 DAYS TAKE ONE CAPSULE BY MOUTH EVERY 14 DAYS SOLD: 05/11/2020 [facility] 1,250 mcg (50,000 unit) 12/04/2019 12:00:00 AM EDT capsule 6 TAKE ONE CAPSULE BY MOUTH EVERY 14 DAYS TAKE ONE CAPSULE BY MOUTH EVERY 14 DAYS SOLD: 02/17/2020 [facility] 1,250 mcg (50,000 unit) 12/04/2019 12:00:00 AM EDT capsule 6 TAKE ONE CAPSULE BY MOUTH EVERY 14 DAYS TAKE ONE CAPSULE BY MOUTH EVERY 14 DAYS SOLD: 12/05/2019 [facility] 20 mg 10/02/2019 12:00:00 AM EDT tablet 90 TAKE 1 TABLET BY MOUTH ONCE DAILY IN THE MORNING TAKE 1 TABLET BY MOUTH ONCE DAILY IN THE MORNING SOLD: 10/03/2019 [facility] atorvastatin 80 MG Oral Tablet ATORVASTATIN CALCIUM 10/02/2019 1 2:00:00 AM EDT tablet 90 TAKE 1 TABLET BY MOUTH ONCE DAILY TAKE 1 TABLET BY MOUTH ONCE DAILY SOLD: 12/30/2019 [facility] [id number] 0.3 ML Epinephrine 1 MG/ML Auto-Injector EPINEPHRI NE 10/02/2019 12:00:00 AM EDT auto-injector 2 INJECT INTRAMUSC ULARLY NEEDED FOR ALLERGIC REACTION INJECT INTRAMUSCULARLY NEEDED FOR ALLERGIC REACTION SOLD: 10/03/2019 [facility] 100 mg 10/02/2019 12:00:00 AM EDT tablet 90 TAKE 1 TABLET BY MOUTH ONCE DAILY TAKE 1 TABLET BY MOUTH ONCE DAILY SOLD: 01/13/2020 [facility] 20 mg 10/02/2019 12:00:00 AM EDT tablet 90 TAKE 1 TABLET BY MOUTH ONCE DAILY IN THE MORNING TAKE 1 TABLET BY MOUTH ONCE DAILY IN THE MORNING SOLD: 12/30/2019 [facility] 100 mg 10/02/2019 12:00:00 AM EDT tablet 90 TAKE 1 TABLET BY MOUTH ONCE DAILY TAKE 1 TABLET BY MOUTH ONCE DAILY SOLD: 10/03/2019 [facility] 10 mg 10/02/2019 12:00:00 AM EDT tablet 30 TAKE 1 TABLET BY MOUTH ONCE DAILY NEEDED AT BEDTIME MAXIMUM DAILY DOSE = 1 TAKE 1 TABLET BY MOUTH ONCE DAILY NEEDED AT BEDTIME MAXIMUM DAILY DOSE = 1 SOLD: 10/03/2019 [facility] 80 mg 10/02/2019 12:00:00 AM EDT tablet 90 TAKE 1 TABLET BY MOUTH ONCE DAILY TAKE 1 TABLET BY MOUTH ONCE DAILY SOLD: 10/03/2019 [facility] Acetaminophen 325 MG / Hydrocodone Yulia trate 5 MG Oral Tablet Hydrocodone- Acetaminophen 5-325 MG Hydrocodone-Acetaminophen 5-325 MG 10/01/2019 12:00:00 AM EDT 1.0 {tablet_as_needed} active Hydrocodone-Acetaminophen 5-325 MG eCW1 ([facility]) 5-325 mg 10/01/2019 12:00:00 AM EDT tablet 60 TAKE ONE TABLET BY MOUTH TWICE A DAY NEEDED FOR PAIN MAXIMUM DAILY DOSE = 2 TAKE ONE TABLET BY MOUTH TWICE A DAY NEEDED FOR PAIN MAXIMUM DAILY DOSE = 2 SOLD: 10/03/2019 [facility] Acetaminophen 325 MG / Hydrocodone Yulia trate 5 MG Oral Tablet Hydrocodone- Acetaminophen 5-325 MG Hydrocodone-Acetaminophen 5-325 MG 10/01/2019 12:00:00 AM EDT 1.0 {tablet_as_needed} active Hydrocodone-Acetaminophen 5-325 MG eCW1 ([facility]) 75 mg 07/28/2019 12:00:00 AM EST tablet 90 TAKE ONE TABLET BY MOUTH EVERY DAY TAKE ONE TABLET BY MOUTH EVERY DAY SOLD: 08/02/2019 [facility] 75 mg 07/28/2019 12:00:00 AM EST tablet 90 TAKE ONE TABLET BY MOUTH EVERY DAY TAKE ONE TABLET BY MOUTH EVERY DAY SOLD: 11/11/2019 [facility] 10 mg 07/27/2019 12:00:00 AM EST tablet 30 TAKE ONE TABLET BY MOUTH AT BEDTIME NEEDED MAXIMUM DAILY DOSE = 1 TAKE ONE TABLET BY MOUTH AT BEDTIME NEEDED MAXIMUM DAILY DOSE = 1 SOLD: 08/02/2019 [facility] 1 gram 07/27/2019 12:00:00 AM EST tablet 20 TAKE TWO TABLETS BY MOUTH EVERY 12 HOURS FOR 1 DAY NEEDED TAKE TWO TABLETS BY MOUTH EVERY 12 HOURS FOR 1 DAY NEEDED SOLD: 10/18/2019 [facility] 5-325 mg 07/27/2019 12:00:00 AM EST tablet 60 TAKE ONE TABLET BY MOUTH TWICE A DAY NEEDED FOR PAIN MAXIMUM DAILY DOSE = 2 TAKE ONE TABLET BY MOUTH TWICE A DAY NEEDED FOR PAIN MAXIMUM DAILY DOSE = 2 SOLD: 08/02/2019 [facility] 1 gram 07/27/2019 12:00:00 AM EST tablet 20 TAKE TWO TABLETS BY MOUTH EVERY 12 HOURS FOR 1 DAY NEEDED TAKE TWO TABLETS BY MOUTH EVERY 12 HOURS FOR 1 DAY NEEDED SOLD: 08/02/2019 [facility] Acetaminophen 325 MG / Hydrocodone Yulia trate 5 MG Oral Tablet Hydrocodone- Acetaminophen 5-325 MG Hydrocodone-Acetaminophen 5-325 MG 07/27/2019 12:00:00 AM EST active 1 tablet as neede d eCW1 ([facility]) 25 mg 07/04/2019 12:00:00 AM EST tablet 90 TAKE ONE TABLET BY MOUTH EVERY DAY TAKE ONE TABLET BY MOUTH EVERY DAY SOLD: 07/07/2019 [facility] 25 mg 07/04/2019 12:00:00 AM EST tablet 90 TAKE ONE TABLET BY MOUTH EVERY DAY TAKE ONE TABLET BY MOUTH EVERY DAY SOLD: 09/28/2019 [facility] Furosemide 20 MG Oral Tablet [Lasix] Lasix 07/03/2019 12:00:00 AM EST ORAL active [facility] ([facility] 10 mg 04/13/2019 12:00:00 AM EDT tablet 30 TAKE ONE TABLET BY MOUTH AT BEDTIME NEEDED MAXIMUM DAILY DOSE = 1 TAKE ONE TABLET BY MOUTH AT BEDTIME NEEDED MAXIMUM DAILY DOSE = 1 SOLD: 06/26/2019 [facility] 1,250 mcg (50,000 unit) 04/12/2019 12:00:00 AM EDT capsule 6 TAKE 1 CAPSULE BY MOUTH EVERY 14 DAYS TAKE 1 CAPSULE BY MOUTH EVERY 14 DAYS SOLD: 06/26/2019 [facility] 1,250 mcg (50,000 unit) 04/12/2019 12:00:00 AM EDT capsule 6 TAKE 1 CAPSULE BY MOUTH EVERY 14 DAYS TAKE 1 CAPSULE BY MOUTH EVERY 14 DAYS SOLD: 09/17/2019 [facility] 20 mg 04/07/2019 12:00:00 AM EDT tablet 90 TAKE ONE TABLET BY MOUTH EVERY MORNING TAKE ONE TABLET BY MOUTH EVERY MORNING SOLD: 06/26/2019 [facility] 100 mg 03/27/2019 12:00:00 AM EDT tablet 90 TAKE ONE TABLET BY MOUTH EVERY DAY TAKE ONE TABLET BY MOUTH EVERY DAY SOLD: 07/22/2019 [facility] 80 mg 03/27/2019 12:00:00 AM EDT tablet 90 TAKE ONE TABLET BY MOUTH EVERY DAY TAKE ONE TABLET BY MOUTH EVERY DAY SOLD: 07/01/2019 [facility] Insurance Providers Payer name Policy type / Coverage type Policy ID Covered green party ID Covered green party's relationship to strick[place] Policy [place] Plan Information WELLCARE [id number] SP [id number] WELLCARE [id number] SP [id number] WELLCARE [id number] SP [id number] WELLCARE [id number] SP [id number] WELLCARE [id number] SP [id number] WELLCARE [id number] SP [id number] Wellcare MCR - To Ppo Commercial [id number] Self [id number] Today's Options Ppo Commercial [id number] Self [id number] BCBS [place] Medigap Part B [id number] Family Dependent [id number] BC/BS-U/W Ppo Medigap Part B [id number] Family Dependent [id number] Blue Ppo Medigap Part B [id number] Self [id number] BCBS Indemnity Commercial [id number] Self [id number] Wellcare MCR - To Ppo Commercial [id number] Self [id number] Today's Options Ppo Commercial [id number] Self [id number] BCBS [place] Medigap Part B [id number] Family Dependent [id number] BC/BS-U/W Ppo Medigap Part B [id number] Family Dependent [id number] Blue Ppo Medigap Part B [id number] Self [id number] BCBS Indemnity Commercial [id number] Self [id number] Medicare [place] Medigap Part B [id number] Self [id number] Wellcare Commercial [id number] Self [id number] ANSI-Health Maintenance Organization ( O) [id number] ANSI-Medicare Part B [id number] ANSI-Commercial [id number] ANSI-Medicare Part B [id number] Medicare [place] Medigap Part B [id number] Self [id number] Wellcare Commercial [id number] Self [id number] ANSI-Medicare Part B [id number] ANSI-Health Maintenance Organization ( O) [id number] ANSI-Medicare Part B [id number] ANSI-Commercial [id number] [place] Medigap Part B [id number] Self [id number] Wellcare Commercial [id number] Self [id number] [place] Medigap Part B [id number] Self [id number] Wellcare Commercial [id number] Self [id number] [place] Medigap Part B [id number] Self [id number] Wellcare Commercial [id number] Self [id number] ANSI-Medicare Part B [id number] ANSI-Health Maintenance Organization (HM O) [id number] ANSI-Commercial [id number] ANSI-Medicare Part B [id number] ANSI-Health Maintenance Organization ( O) [id number] ANSI-Commercial [id number] ANSI-Medicare Part B [id number] ANSI-Medicare Part B [id number] [facility] [id number] ANSI-Commercial [id number] ANSI-Medicare Part B [id number] ANSI-Medicare Part B [id number] [facility] Medigap Part B [id number] Self [id number] [facility] Options Medigap Part B [id number] Self [id number] [place] Medigap Part B [id number] Self [id number] Wellcare Commercial [id number] Self [id number] Todays Options Commercial [id number] Self [id number] Wellcare MCR - To Ppo Commercial [id number] Self [id number] Today's Options Ppo Commercial [id number] Self [id number] BCBS [place] Medigap Part B [id number] Family Dependent [id number] BC/BS-U/W Ppo Medigap Part B [id number] Family Dependent [id number] Blue Ppo Medigap Part B [id number] Self [id number] BCBS Indemnity Commercial [id number] Self Y [id number] TODAYS OPTIONS/AL[place] O [id number] O [id number] Todays Options Commercial [id number] Self [id number] BCBS Ppo Commercial [id number] Self [id number] Aarp/ Health Care Options Medigap Part B [id number] Self [id number] Medicare - [facility] Medicare Primary [id number] Self [id number] ANSI-Medicare Part B [id number] ANSI-Medicare Part B [id number] ANSI-Commercial [id number] BS [place] Medigap Part B [id number] Self [id number] [facility] Options Medigap Part B [id number] Self [id number] [place] Medigap Part B [id number] Self [id number] Todays Options Commercial [id number] Self [id number] BS [place] Medigap Part B [id number] Self [id number] [facility] Options Medigap Part B [id number] Self [id number] [place] Medigap Part B [id number] Self [id number] Todays Options Commercial [id number] Self [id number] TODAYS OPTIONS [id number] SP [id number] TODAYS OPTIONS [id number] SP [id number] BS [place] Medigap Part B [id number] Self [id number] [facility] Options Medigap Part B [id number] Self [id number] [place] Medigap Part B [id number] Self [id number] Todays Options Commercial [id number] Self [id number] ANSI-Commercial [id number] ANSI-Medicare Part B [id number] ANSI-Medicare Part B [id number] Today's Options Ppo Commercial [id number] Self [id number] BCBS [place] Medigap Part B [id number] Family Dependent [id number] BC/BS-U/W Ppo Medigap Part B [id number] Family Dependent [id number] Blue Ppo Medigap Part B [id number] Self [id number] BCBS Indemnity Commercial [id number] Self Y [id number] Today's Options Ppo Commercial [id number] Self [id number] BCBS [place] Medigap Part B [id number] Family Dependent [id number] BC/BS-U/W Ppo Medigap Part B [id number] Family Dependent [id number] Blue Ppo Medigap Part B [id number] Self [id number] BCBS Indemnity Commercial [id number] Self Y [id number] TODAYS OPTIONS [id number] SP [id number] Todays Options Commercial [id number] Self [id number] BCBS Ppo Commercial [id number] Self [id number] Aarp/ Health Care Options Medigap Part B [id number] Self [id number] Medicare - [facility] Medicare Primary [id number] Self [id number] AARP U [id number] Self [id number] MEDICARE A [id number] Self [id number] A BCBS [place] PPO 302/307 [id number] TODAYS OPTIONS [id number] SP [id number] BS [place] Medigap Part B [id number] Self [id number] [facility] [facility] Options Medigap Part B [id number] Self [id number] [place] Medigap Part B [id number] Self [id number] Todays Options Commercial [id number] Self [id number] BS [place] Medigap Part B [id number] Self [id number] [facility] [facility] Options Medigap Part B [id number] Self [id number] [place] Medigap Part B [id number] Self [id number] Todays Options Commercial [id number] Self [id number] TODAYS OPTIONS [id number] SP [id number] Today's Options Ppo Commercial [id number] Self [id number] BCBS [place] Medigap Part B [id number] Family Dependent [id number] BC/BS-U/W Ppo Medigap Part B [id number] Family Dependent [id number] Blue Ppo Medigap Part B [id number] Self [id number] BCBS Indemnity Medigap Part B [id number] Self [id number] Medicare (Part B) Medicare Primary [id number] Self [id number] BS [place] Medigap Part B [id number] Self [id number] [facility] [facility] Options Medigap Part B [id number] Self [id number] Medicare [facility] Medigap Part B [id number] Self [id number] Todays Options Commercial [id number] Self [id number] MEDICARE [id number] SP [id number] A AARP HEALTH CARE OPTIONS [id number] SP [id number] Medicare (Part B) Medicare Primary Self BCBS [place] Medigap Part B Family Dependent BC/BS-U/W Ppo Medigap Part B Family Dependent Blue Ppo Medigap Part B Self BCBS Indemnity Medigap Part B Self [facility] Medigap Part B Self BS [place] Medigap Part B Self [facility] [facility] Medigap Part B Self Medicare [facility] Medicare Primary Self Medicare Medicare Primary Self UHC [id number] Leyla [id number] MEDICARE [id number] Leyla [id number] A MEDICARE [id number] SP [id number] A AARP S [id number] S [id number] MEDICARE P [id number] S [id number] A EXCELLUS BCBS P [id number] S [id number] BCBS OF [place] 306/806 [id number] SP [id number] Problems, Conditions, and Diagnoses Code Display Name Description Problem Type Effective Dates Data Source(s) 567501558 Screening for malignant neoplasm of colo n Screening for malignant neoplasm of colon Problem 07/31/2020 12:00:00 AM EST MEDENT ([facility]) [id number] Dyspnea Dyspnea Problem 07/04/2019 12:00:00 AM ES T MEDENT ([facility]) Surgeries/Procedures Procedure Description Date Indications Data Source(s) Office Visit, Est Pt., Level 4 PC 07/27/2019 12:00:00 AM EST eCW1 ([facility]) Office Visit, Est Pt., Level 3 FC 07/27/2019 12:00:00 AM EST eCW1 ([facility]) ECG ROUTINE ECG W/LEAST 12 LDS W/I&R 07/04/2019 12:00: 00 AM EST MEDENT ([facility]) Results ID Date Data Source [id number] 08/06/2020 12:00:00 PM EST [facility] Name Value Range Interpretation Code Description Data Akilah rce(s) Supporting Document(s) SARS coronavirus 2 RNA Not Detected [facility] [place] This lab was ordered by [facility] and reported by [facility]. ID Date Data Source [id number] 06/30/2020 09:39:00 AM EST MEDENT ([facility], ) Name Value Range Interpretation Code Description Data Akilah rce(s) Supporting Document(s) Glomerular Filtration Rate Laboratory test result Normal (applies to non- numeric results) MEDENT ([facility], ) <content>Units are mL/min/1.73 m2</content>
<content></content>
<content>Chronic Kidney Disease Staging per NKF:</content>
<content></content>
<content>Stage I & II GFR >=60 Normal to Mildly Decreased</content>
<content>Stage III GFR 30- 59 Moderately Decreased</content>
<content>Stage IV GFR 15-29 Severely Decreased</content>
<content>Stage V GFR <15 Very Little GFR Left</content>
<content>ESRD GFR <15 on DIRECTOR OF [employer]AND MARKETING</content>
<content></content> Creatinine For GFR 0.83 mg/dL 0.55-1.30 Normal (applies to non -numeric results) MEDENT ([facility], ) ID Date Data Source [id number] 06/30/2020 09:39:00 AM EST MEDENT ([facility], ) Name Value Range Interpretation Code Description Data Akilah rce(s) Supporting Document(s) Urea nitrogen [Mass/volume] in Serum or Plasma 21 mg/dL 7-18 Above high normal MEDENT ([facility], ) ID Date Data Source [id number] 01/03/2020 01:57:00 PM EDT [facility] ([facility]) Name Value Range Interpretation Code Description Data Akilah rce(s) Supporting Document(s) Albumin [Mass/volume] in Serum or Plasma 3.9 [facility] ([facility]) Alanine aminotransferase [Enzymatic activity/volume] in Serum or Pl asma 23 [facility] ([facility]) Calcium [Mass/volume] in Serum or Plasma 10.2 [facility] ([facility]) Chloride [Moles/volume] in Serum or Plasma 108 [facility] ([facility]) Carbon dioxide, total [Moles/volume] in Serum or Plasma 28 [facility] ([facility]) Alkaline phosphatase [Enzymatic activity/volume] in Serum or Plasma 9 6 [facility] ([facility]) Potassium [Moles/volume] in Serum or Plasma 4.3 [facility] ([facility]) Protein [Mass/volume] in Serum or Plasma 7.1 [facility] ([facility]) Sodium 141 [facility] ([facility] Aspartate aminotransferase [Enzymatic activity/volume] in Serum or Plasma 14 [facility] ([facility]) Glucose 97 70-100 [facility] ([facility] Urea nitrogen [Mass/volume] in Serum or Plasma 15 [facility] ([facility]) Creatinine For GFR 0.84 [facility] ([facility]) ID Date Data Source [id number] 01/02/2020 10:29:00 AM EDT MED[facility] ([facility], ) Name Value Range Interpretation Code Description Data Akilah rce(s) Supporting Document(s) Glomerular Filtration Rate Laboratory test result Normal (applies to non- numeric results) [facility], ) <content>Units are mL/min/1.73 m2</content>
<content></content>
<content>Chronic Kidney Disease Staging per NKF:</content>
<content></content>
<content>Stage I & II GFR >=60 Normal to Mildly Decreased</content>
<content>Stage III GFR 30- 59 Moderately Decreased</content>
<content>Stage IV GFR 15-29 Severely Decreased</content>
<content>Stage V GFR <15 Very Little GFR Left</content>
<content>ESRD GFR <15 on DIRECTOR OF [employer]ING</content>
<content></content> Creatinine For GFR 0.84 mg/dL 0.55-1.30 Normal (applies to non -numeric results) [facility]) ID Date Data Source [id number] 01/02/2020 10:29:[address] [facility] ([facility]) Name Value Range Interpretation Code Description Data Akilah rce(s) Supporting Document(s) Urea nitrogen [Mass/volume] in Serum or Plasma 16 mg/dL 7 -18 Normal (applies to non-numeric results) [facility]) ID Date Data Source LIPID PANEL (CARDIAC RISK) 07/30/2019 12:00:00 AM EST eCW1 ( [facility]) Name Value Range Interpretation Code Description Data Akilah rce(s) Supporting Document(s) Triglyceride [Mass/volume] in Serum or Plasma by calculation 101 <150 TRIGLYCERIDES LEVEL eCW1 ([facility]) Cholesterol [Moles/volume] in Serum or Plasma 120 <200 CHOLESTEROL LEVEL eCW1 ([facility]) 71 NON-HDL-C eCW1 ([facility]) Cholesterol in LDL [Mass/volume] in Serum or Plasma by calculation 51 <100 LDL CHOLESTEROL eCW1 ([facility]) Cholesterol in HDL [Moles/volume] in Serum or Plasma 49 >40 HDL CHOLESTEROL eCW1 ([facility]) 2.448 <5 CHOLESTEROL RISK RATIO eCW1 ([facility]) ID Date Data Source MAGNESIUM LEVEL 07/30/2019 12:00:00 AM EST [facility] Name Value Range Interpretation Code Description Data Akilah rce(s) Supporting Document(s) 2.5 1.8-2.4 MAGNESIUM LEVEL eCW1 ([facility]) ID Date Data Source PTH INTACT 07/30/2019 12:00:00 AM EST [facility]CW1 [facility] Name Value Range Interpretation Code Description Data Akilah rce(s) Supporting Document(s) 126.3 18.5-88.0 PTH INTACT eCW1 ([facility]) ID Date Data Source VITAMIN D 25-HYDROXY 07/30/2019 12:00:00 AM EST eCW1 ([facility]) Name Value Range Interpretation Code Description Data Akilah rce(s) Supporting Document(s) 46.3 30.0-100.0 TOTAL 25(OH) VITAMIN D eC W1 ([facility]) ID Date Data Source [id number] 07/30/2019 12:00:00 AM EST [facility]CW1 [facility] Name Value Range Interpretation Code Description Data Akilah rce(s) Supporting Document(s) Hemoglobin A1c/Hemoglobin.total in Blood 5.5 HEMOGLOBIN A1c eCW1 ([facility]) ID Date Data Source Comprehensive Metabolic Profile (CMP) 07/30/2019 12:00:00 AM EST eCW1 ([facility]) Name Value Range Interpretation Code Description Data Akilah rce(s) Supporting Document(s) 90 70-100 GLUCOSE, FASTING eCW1 ([facility]) > 60.0 >39 GLOMERULAR FILTRATION RATE eCW 1 ([facility]) 0.70 0.55-1.30 CREATININE FOR GFR eCW1 (Replaced by [facility]) 143 136-145 SODIUM LEVEL eCW1 ([facility]) 24 7-18 BLOOD UREA NITROGEN eCW1 ([facility]) 9.9 8.8-10.2 CALCIUM LEVEL eCW1 ([facility]) 109 98-107 CHLORIDE LEVEL eCW1 ([facility]) 4.6 3.5-5.1 POTASSIUM SERUM eCW1 ([facility]) 29 21-32 CARBON DIOXIDE LEVEL eCW1 ([facility]) 6.7 6.4-8.2 TOTAL PROTEIN eCW1 ([facility]) 0.6 0.2-1.0 BILIRUBIN,TOTAL eCW1 ([facility]) 24 12-78 ALT/SGPT eCW1 ([facility]) 83 45-117 ALKALINE PHOSPHATASE eCW1 ([facility]) 15 7-37 AST/SGOT eCW1 ([facility]) 3.8 3.2-5.2 ALBUMIN eCW1 ([facility]) 1.31 1.00-1.93 ALBUMIN/GLOBULIN RATIO eCW1 ([facility]) ID Date Data Source NT-PRO BNP 07/30/2019 12:00:00 AM EST [facility]CW1 [facility] Name Value Range Interpretation Code Description Data Akilah rce(s) Supporting Document(s) 375 <125 NT-PRO BNP eCW1 ([facility]) Procedure Social History Code Duration Value Status Description Data Source(s ) Smoking 07/14/2020 12:00:00 AM EST Patient is a former smoker completed Patient is a former smoker SARTHAK ([facility], ) Smoking 05/02/2020 12:00:00 AM EST Patient is a former smoker completed Patient is a former smoker MED[facility] ([facility]) Vital Signs ID Date Data Source UNK Name Value Range Interpretation Code Description Data Source(s) Body temperature 97.2 [degF] 97.2 [degF] [facility] ([facility]) Body weight 116.122 kg 116.122 kg [facility] Body mass index (BMI) [Ratio] 37.8 kg/m2 37.8 k g/m2 [facility]) Heart rate 78 /min 78 /min [facility] ([facility]) Diastolic blood pressure 92 mm[Hg] 92 mm[Hg] MED[facility] ([facility]) Systolic blood pressure 136 mm[Hg] 136 mm[Hg] M EDENT ([facility]) Body weight 256.00 [lb_av] 256.00 [lb_av] MEDEN T ([facility]) Body height 69 [in_i] 69 [in_i] [facility] 5[facility]9" Body surface area Derived from formula 2.33 m2 2.33 m2 MEDCAESAR ([facility], ) Body weight 117.[address] [facility] ([facility], ) [place] body weight 150 [lb_av] 150 [lb_av] MEDEN T ([facility]) Body mass index (BMI) [Ratio] 37.2 kg/m2 37.2 k g/m2 [facility] ([facility]) Body weight 259.25 [lb_av] 259.25 [lb_av] MEDEN T ([facility]) Body height 70 [in_i] 70 [in_i] [facility] ([facility]) 5'10" Diastolic blood pressure 70 mm[Hg] 70 mm[Hg] [facility] ([facility]) Systolic blood pressure 132 mm[Hg] 132 mm[Hg] M EDENT ([facility]) Diastolic blood pressure 78 mm[Hg] 78 mm[Hg] eCW1 ([facility]) Systolic blood pressure 128 mm[Hg] 128 mm[Hg] e CW1 ([facility]) Body temperature 97.4 [degF] 97.4 [degF] eCW1 ( [facility]) Respiratory rate 20 /min 20 /min eCW1 ([facility]) Heart rate 66 /min 66 /min eCW1 ([facility]) Body mass index (BMI) [Ratio] 36.93 kg/m2 36.93 kg/m2 W1 ([facility]) Body height 70 [in_i] 70 [in_i] eCW1 [facility] Body weight 257.4 [lb_av] 257.4 [lb_av] eCW1 ([facility]) Body surface area Derived from formula 2.33 m2 2.33 m2 [facility]) Body weight 117.936 kg 117.936 kg [facility] ([facility]) [place] body weight 150 [lb_av] 150 [lb_av] MEDEN T ([facility]) Body mass index (BMI) [Ratio] 37.3 kg/m2 37.3 k g/m2 [facility] ([facility]) Body weight 260.00 [lb_av] 260.00 [lb_av] MEDEN T ([facility]) Body height 70 [in_i] 70 [in_i] [facility] ([facility]) 5'10" Oxygen saturation in Arterial blood by Pulse oximetry 95 % 95 % [facility] ([facility]) Heart rate 81 /min 81 /min [facility] ([facility]) Diastolic blood pressure 82 mm[Hg] 82 mm[Hg] [facility] ([facility]) Systolic blood pressure 120 mm[Hg] 120 mm[Hg] [facility] ([facility]) Diastolic blood pressure--sitting 68 mm[Hg] 68 mm[Hg] [facility] ([facility]) large cuff, Ra Systolic blood pressure--sitting 124 mm[Hg] 124 mm[Hg] [facility] ([facility]) large cuff, Ra Heart rate 64 /min 64 /min [facility] ([facility]) Body mass index (BMI) [Ratio] 38.2 kg/m2 38.2 k g/m2 [facility] ([facility]) Body height 68.5 [in_i] 68.5 [in_i] [facility] ([facility]) 5'8.50" Body weight 255.00 [lb_av] 255.00 [lb_av] MEDEN T ([facility]) Body surface area Derived from formula 2.[address] [facility] ([facility]) Body weight 116.[address] [facility] ([facility]) [place] body weight 150 [lb_av] 150 [lb_av] MEDEN T ([facility]) Body mass index (BMI) [Ratio] 36.8 kg/m2 36.8 k g/m2 [facility] ([facility]) Body weight 256.38 [lb_av] 256.38 [lb_av] MEDEN T ([facility]) Body height 70 [in_i] 70 [in_i] [facility] ([facility]) 5'10" Diastolic blood pressure 72 mm[Hg] 72 mm[Hg] [facility] ([facility]) Systolic blood pressure 104 mm[Hg] 104 mm[Hg] [facility], ) Diastolic blood pressure 80 mm[Hg] 80 mm[Hg] eCW1 ([facility]) Systolic blood pressure 132 mm[Hg] 132 mm[Hg] e CW1 ([facility]) Body temperature 97.0 [degF] 97.0 [degF] eCW1 ( [facility]) Respiratory rate 20 /min 20 /min eCW1 ([facility]) Heart rate 64 /min 64 /min eCW1 ([facility]) Body mass index (BMI) [Ratio] 36.73 kg/m2 36.73 kg/m2 eCW1 ([facility]) Body height 70 [in_i] 70 [in_i] [facility] Body weight 256 [lb_av] 256 [lb_av] eCW1 ([facility]placed by [facility]) Diastolic blood pressure 80 mm[Hg] 80 mm[Hg] eCW1 ([facility]) Systolic blood pressure 132 mm[Hg] 132 mm[Hg] e CW1 ([facility]) Body temperature 97.0 [degF] 97.0 [degF] eCW1 ( [facility]) Respiratory rate 20 /min 20 /min eCW1 ([facility]) Heart rate 64 /min 64 /min eCW1 ([facility]) Body mass index (BMI) [Ratio] 36.73 kg/m2 36.73 kg/m2 eCW1 ([facility]) Body height 70 [in_i] 70 [in_i] [facility] Body weight 256 [lb_av] 256 [lb_av] eCW1 ([facility]placed by [facility]) Diastolic blood pressure 78 mm[Hg] 78 mm[Hg] eCW1 ([facility]) Systolic blood pressure 116 mm[Hg] 116 mm[Hg] e CW1 ([facility]) Body temperature 97.8 [degF] 97.8 [degF] eCW1 ( [facility]) Respiratory rate 20 /min 20 /min eCW1 ([facility]) Heart rate 73 /min 73 /min eCW1 ([facility]) Body mass index (BMI) [Ratio] 37.30 kg/m2 37.30 kg/m2 eCW1 ([facility]) Body height 70 [in_us] 70 [in_us] [facility] Body weight Measured 260.0 [lb_av] 260.0 [lb_av ] eCW1 ([facility]) Diastolic blood pressure--sitting 86 mm[Hg] 86 mm[Hg] MED[facility] ([facility]) large cuff, Ra Systolic blood pressure--sitting 122 mm[Hg] 122 mm[Hg] [facility] ([facility]) large cuff, Ra Heart rate 55 /min 55 /min [facility] ([facility]) Body mass index (BMI) [Ratio] 39.0 kg/m2 39.0 k g/m2 [facility] ([facility]) Body height 68.5 [in_i] 68.5 [in_i] [facility] ([facility]) 5'8.50" Body weight 260.00 [lb_av] 260.00 [lb_av] MEDEN T ([facility]) Patient Treatment Plan of Care Planned Activity Planned Date Details Description Data Source (s) Acetaminophen 325 MG / Hydrocodone Bitartrate 5 MG Ora l Tablet 05/29/2020 12:00:00 AM EST eCW1 ([facility]) Acetaminophen 325 MG / Hydrocodone Bitartrate 5 MG Ora l Tablet 05/29/2020 12:00:00 AM EST eCW1 ([facility]) Acetaminophen 325 MG / Hydrocodone Bitartrate 5 MG Ora l Tablet 01/10/2020 12:00:00 AM EDT eCW1 ([facility]) Acetaminophen 325 MG / Hydrocodone Bitartrate 5 MG Ora l Tablet 01/10/2020 12:00:00 AM EDT eCW1 ([facility]) Acetaminophen 325 MG / Hydrocodone Bitartrate 5 MG Ora l Tablet 10/01/2019 12:00:00 AM EDT eCW1 ([facility]) Acetaminophen 325 MG / Hydrocodone Bitartrate 5 MG Ora l Tablet 10/01/2019 12:00:00 AM EDT eCW1 ([facility]) Acetaminophen 325 MG / Hydrocodone Bitartrate 5 MG Ora l Tablet 07/27/2019 12:00:00 AM EST eCW1 ([facility])
[2020-08-11] MEDS ORDERED: LIDOCAINE 2% 100MG/5ML SDV (FOR ANES.) As Ordered ONE (12:30)
[2020-08-11] MEDS ORDERED: propofoL 200 MG/20 ML VIAL As Ordered ONE (12:30)
[2020-08-11] MEDS ORDERED: HYDR-3713 PO (12:38)
[2020-08-11] MEDS ORDERED: ACET-897 PO (12:38)
--- NOTE | 2020-08-11 12:58 | ROOR ---
Patient Name: Estephania Oh Procedure Date: 08/11/2020 12:45 PM Date of : 1945 Age: 74 Room: [facility] Gender: Female Note Status: Finalized Procedure: Upper Endoscopy + Biopsies Indications: Heartburn, Exclusion of Pa's esophagus Providers: Collin Yadav MD Referring MD: Antoine Morgan MD Requesting Provider: Medicines: Monitored Anesthesia Care Complications: No immediate complications. Procedure: Pre-Anesthesia Assessment: - The heart rate, respiratory rate, oxygen saturations, blood pressure, adequacy of pulmonary ventilation, and response to care were monitored throughout the procedure. The Endoscope was introduced through the mouth, and advanced to the second part of duodenum. The upper GI endoscopy was accomplished without difficulty. The patient tolerated the procedure well. Findings: The Z-line was regular and was found 35 cm from the incisors. Multiple biopsies were obtained with cold forceps for evaluation to rule out Pa's Esophagus randomly at the gastroesophageal junction. A large hiatal hernia was present. No other significant abnormalities were identified in a careful examination of the stomach. The exam of the duodenum was otherwise normal. Impression: - Z-line regular, 35 cm from the incisors. - Large hiatal hernia. - Multiple biopsies were obtained at the gastroesophageal junction. - The examination was otherwise normal. Recommendation: - Patient has a contact number available for emergencies. The signs and symptoms of potential delayed complications were discussed with the patient. Return to normal activities tomorrow. Written discharge instructions were provided to the patient. - High fiber diet. - Discharge patient to home. - Continue present medications. - Await pathology results. - Telephone GI clinic for pathology results in 1 week. - Return to referring physician. - The findings and recommendations were discussed with the patient. Procedure Code(s): --- Professional --- 09885, Esophagogastroduodenoscopy, flexible, transoral; with biopsy, single or multiple Diagnosis Code(s): --- Professional --- K44.9, Diaphragmatic hernia without obstruction or gangrene R12, Heartburn CPT copyright 2019 [employer]. All rights reserved. The codes documented in this report are preliminary and upon merchandise marker review may be revised to meet current compliance requirements. Collin Yadav MD Collin Yadav MD 08/11/2020 12:58:06 PM Electronically signed by Collin Yadav MD Number of Addenda: 0 Note Initiated On: 08/11/2020 12:45 PM Estimated Blood Loss: Estimated blood loss: none.
--- NOTE | 2020-08-11 13:29 | ROOR ---
Patient Name: Estephania Oh Procedure Date: 08/11/2020 12:46 PM Date of : 1945 Age: 74 Room: [facility] Gender: Female Note Status: Finalized Procedure: Total Colonoscopy to Cecum + Cold Snare Polypectomy + Hemoclips Indications: Screening for colorectal malignant neoplasm Providers: Collin Yadav MD Referring MD: Antoine Morgan MD Requesting Provider: Medicines: Monitored Anesthesia Care Complications: No immediate complications. Procedure: Pre-Anesthesia Assessment: - The heart rate, respiratory rate, oxygen saturations, blood pressure, adequacy of pulmonary ventilation, and response to care were monitored throughout the procedure. - The heart rate, respiratory rate, oxygen saturations, blood pressure, adequacy of pulmonary ventilation, and response to care were monitored throughout the procedure. The colonoscopy was performed without difficulty. The patient tolerated the procedure well. The quality of the bowel preparation was good. The Colonoscope was introduced through the anus and advanced to the cecum, identified by appendiceal orifice and ileocecal valve. Findings: The perianal and digital rectal examinations were normal. Non-bleeding internal hemorrhoids were found during retroflexion. The hemorrhoids were small and Grade I (internal hemorrhoids that do not prolapse). Multiple small and large-mouthed diverticula were found in the recto-sigmoid colon, sigmoid colon and descending colon. Two semi-pedunculated polyps were found at 50 cm proximal to the anus. The polyps were medium in size. These polyps were removed with a cold snare. Resection and retrieval were complete. To prevent bleeding after the polypectomy, three hemostatic clips were successfully placed. There was no bleeding at the end of the procedure. The exam was otherwise without abnormality on direct and retroflexion views. Impression: - Non-bleeding internal hemorrhoids. - Diverticulosis in the recto-sigmoid colon, in the sigmoid colon and in the descending colon. - Two medium polyps at 50 cm proximal to the anus, removed with a cold snare. Resected and retrieved. Clips were placed. - The examination was otherwise normal on direct and retroflexion views. - The exam was otherwise normal to the cecum. Recommendation: - Patient has a contact number available for emergencies. The signs and symptoms of potential delayed complications were discussed with the patient. Return to normal activities tomorrow. Written discharge instructions were provided to the patient. - High fiber diet. - Discharge patient to home. - Resume Plavix (clopidogrel) at prior dose tomorrow. - Await pathology results. - Telephone GI clinic for pathology results in 1 week. - Return to referring physician. - Repeat colonoscopy for surveillance based on pathology results. - The findings and recommendations were discussed with the patient. Procedure Code(s): --- Professional --- 97863, Colonoscopy, flexible; with removal of tumor(s), polyp(s), or other lesion(s) by snare technique Diagnosis Code(s): --- Professional --- Z12.11, Encounter for screening for malignant neoplasm of colon K64.0, First degree hemorrhoids K63.5, Polyp of colon K57.30, Diverticulosis of large intestine without perforation or abscess without bleeding CPT copyright 2019 [employer]. All rights reserved. The codes documented in this report are preliminary and upon salesperson burial needs review may be revised to meet current compliance requirements. Collin Yadav MD Collin Yadav MD 08/11/2020 1:29:17 PM Electronically signed by Collin Yadav MD Number of Addenda: 0 Note Initiated On: 08/11/2020 12:46 PM Estimated Blood Loss: Estimated blood loss: none.
[2020-08-11 13:55] VITALS: BP 119/64
== END 2020-08-11 14:05 | disposition home or self-care (01) ==
LOC: M OPP 11:46
PROVIDERS: ATTEND Internal Medicine Gastroenterology
DX: Z12.11 Encounter for screening for malignant neoplasm of colon (principal); R12 Heartburn; K63.5 Polyp of colon; K64.0 First degree hemorrhoids; K57.30 Diverticulosis of large intestine without perforation or abscess without bleeding; D13.1 Benign neoplasm of stomach; K44.9 Diaphragmatic hernia without obstruction or gangrene; I10 Essential (primary) hypertension; E78.5 Hyperlipidemia, unspecified; M19.90 Unspecified osteoarthritis, unspecified site; F41.9 Anxiety disorder, unspecified; F32.9 Major depressive disorder, single episode, unspecified; G43.909 Migraine, unspecified, not intractable, without status migrainosus; G47.30 Sleep apnea, unspecified; Z86.73 Personal history of transient ischemic attack (TIA), and cerebral infarction without residual deficits; Z87.891 Personal history of nicotine dependence; Z88.2 Allergy status to sulfonamides; Z91.013 Allergy to seafood; Z79.899 Other long term (current) drug therapy

== ENCOUNTER → 2020-09-25 | Outpatient (REF) | payer MEDICARE ==
[~2020-09-25] MED LIST changes: +ACET-897 PO; +ASPI-569 PO; -ASPI81TAEC PO; +HYDR-3713 PO; -NS 1,000 ML IV ONE
[2020-09-25 11:05] LABS: BASO % 0.6 % (0.0-1.0); EOS # 0.2 10^3/uL (0.0-0.5); EOS % 3.3 % (0.0-3.0); HEMATOCRIT 46.1 % (36.0-47.0); HEMOGLOBIN 14.6 g/dl (12.0-15.5); LYMPH # 1.1 10^3/uL (1.5-5.0); LYMPH % 22.5 % (24.0-44.0); MEAN CORPUSCULAR HGB CONC 31.7 g/dl (32.0-36.5); MEAN CORPUSCULAR VOLUME 97.9 fl (80.0-96.0); MONO # 0.5 10^3/uL (0.0-0.8); NEUTROPHILS % 62.2 % (36.0-66.0); PLATELET COUNT, AUTOMATED 192 10^3/uL (150-450); RED BLOOD COUNT 4.71 10^6/uL (4.00-5.40); WHITE BLOOD COUNT 4.8 10^3/uL (4.0-10.0)
[2020-09-25 12:02] LABS: ALBUMIN 3.7 GM/DL (3.2-5.2); ALT/SGPT 27 U/L (12-78); BILIRUBIN,TOTAL 0.6 MG/DL (0.2-1.0); BLOOD UREA NITROGEN 19 MG/DL (7-18); CALCIUM LEVEL 9.4 MG/DL (8.8-10.2); CARBON DIOXIDE LEVEL 29 MEQ/L (21-32); CHLORIDE LEVEL 107 MEQ/L (98-107); GLOMERULAR FILTRATION RATE > 60.0 (>39); GLUCOSE, FASTING 90 MG/DL (70-100); MAGNESIUM LEVEL 2.3 MG/DL (1.8-2.4); NT-PRO BNP 618 PG/ML (<125); POTASSIUM SERUM 4.1 MEQ/L (3.5-5.1); SODIUM LEVEL 141 MEQ/L (136-145); TOTAL PROTEIN 6.7 GM/DL (6.4-8.2)
[2020-09-25 12:05] LABS: PTH INTACT 142.1 PG/ML (18.5-88.0); TOTAL 25(OH) VITAMIN D 29.8 NG/ML (30.0-100.0); VITAMIN B12 LEVEL 1017 PG/ML (247-911)
== END ==
LOC: M PLALAB 08:57
PROVIDERS: ATTEND Family Medicine
DX: I50.32 Chronic diastolic (congestive) heart failure (principal); D72.820 Lymphocytosis (symptomatic); E83.52 Hypercalcemia; E53.8 Deficiency of other specified B group vitamins

== ENCOUNTER → 2020-10-13 | Outpatient (REF) | payer MEDICARE ==
[2020-10-13 16:41] LABS: ALBUMIN 3.5 GM/DL (3.2-5.2); BLOOD UREA NITROGEN 19 MG/DL (7-18); CALCIUM LEVEL 9.7 MG/DL (8.8-10.2); CARBON DIOXIDE LEVEL 30 MEQ/L (21-32); CHLORIDE LEVEL 109 MEQ/L (98-107); CREATININE FOR GFR 0.74 MG/DL (0.55-1.30); GLOMERULAR FILTRATION RATE > 60.0 (>39); GLUCOSE, FASTING 101 MG/DL (70-100); MAGNESIUM LEVEL 2.4 MG/DL (1.8-2.4); NT-PRO BNP 403 PG/ML (<125); POTASSIUM SERUM 4.5 MEQ/L (3.5-5.1); SODIUM LEVEL 142 MEQ/L (136-145)
== END ==
LOC: M SFHCPLAZ 09:17
PROVIDERS: ATTEND Family Medicine
DX: I10 Essential (primary) hypertension (principal)

== ENCOUNTER → 2020-11-17 | Outpatient (CLI) | payer MEDICARE ==
--- NOTE | 2020-11-17 10:30 | REPMRS ---
Patient History The patient states she has not had a clinical breast exam in over a year. Patient is postmenopausal, has history of other cancer at age 31, and is nulliparous. No known family history of cancer. Benign excisional biopsy of the left breast, 1970. No Hormone Replacement Therapy Patient states no breast complaints today. Patient has signed MRS History Sheet. Digital Woman Screen Mammo: November 17, 2020 - Exam #: [id number] Bilateral CC and MLO view(s) were taken. Technologist: Candi Gallagher, Technologist Prior study comparison: November 15, 2019, bilateral digital woman screen mammo performed at [facility]. November 14, 2018, bilateral digital woman screen mammo performed at [facility]. November 10, 2017, digital woman screen mammo performed at [facility]. FINDINGS: There are scattered fibroglandular densities. The Volpara volumetric breast density category is:B. There has been no change in the appearance of the mammogram from the prior studies. There is a mild amount of scattered fibroglandular density which is fairly symmetric. There is no interval development of dominant mass, architectural distortion, or grouped microcalcification suggestive of malignancy. 3-D tomosynthesis shows no additional findings. Assessment: BI-RADS/ACR category 1 mammogram. Negative Mammogram. Recommendation Routine screening mammogram of both breasts in 1 year (for women over age 40). This patient's [facility] Lifetime Breast Cancer Risk is estimated at 2.7 %. This mammogram was interpreted with the aid of an FDA-approved computer-aided dectection system. Electronically Signed By: Fortunato Petersen MD 11/17/20 [id number]
--- NOTE | 2020-11-17 11:06 | DEXAMM ---
INDICATION: M85.80 OSTEOPENIA. COMPARISON: Comparison bone densitometry exam is include the most recent study of November 10, 2017 and the most remote dated December 08, 2004.. TECHNIQUE: Bone density was measured using dual-energy x-ray absorptionmetry (DEXA). FINDINGS: AP SPINE L1-L4 BMD 1.150 g/cm2 Young Adult T-Score -0.4 Age Matched Z-Score 1.4. LT FEMUR, TOTAL BMD 0.927 g/cm2 Young Adult T-Score -0.6 Age Matched Z-Score 1.0. LT NECK BMD 0.825 g/cm2 Young Adult T-Score -1.5 Age Matched Z-Score 0.3. RT FEMUR, TOTAL BMD 0.930 g/cm2 Young Adult T-Score -0.6 Age Matched Z-Score 1.1. RT NECK BMD 0.887 g/cm2 Young Adult T-Score -1.1 Age Matched Z-Score 0.8. IMPRESSION: There is normal bone density of the spine. There is low bone density of the left hip. There is low bone density of the right hip. The density of the spine has increased 13.3% since the initial exam on December 08, 2004. The density of the spine increased 3.5% since most recent exam on November 10, 2017. The density of the left hip has decreased 1.4% since initial exam on December 08, 2004. The density of the left hip has decreased 3.6% since most recent exam on November 10, 2017. The density of the right hip has decreased 10.1% since the initial exam on October 03, 2008. The density of the right hip has increased 1.0% since the most recent exam on November 10, 2017. FOLLOW-UP: Recommendation for the next bone density exam: 2 years. <Electronically signed by Fortunato Petersen > 11/17/20 [id number]
== END ==
LOC: M WHC 09:42
PROVIDERS: ATTEND Family Medicine
DX: Z12.31 Encounter for screening mammogram for malignant neoplasm of breast (principal); M85.89 Other specified disorders of bone density and structure, multiple sites

== ENCOUNTER → 2021-03-04 | Outpatient (CLI) | payer MEDICARE ==
[2021-03-04 11:54] LABS: BASO % 0.7 % (0.0-1.0); EOS # 0.2 10^3/uL (0.0-0.5); EOS % 2.8 % (0.0-3.0); HEMATOCRIT 46.3 % (36.0-47.0); LYMPH # 1.4 10^3/uL (1.5-5.0); LYMPH % 25.2 % (24.0-44.0); MEAN CORPUSCULAR HEMOGLOBIN 31.5 pg (27.0-33.0); MEAN CORPUSCULAR HGB CONC 32.4 g/dl (32.0-36.5); MEAN CORPUSCULAR VOLUME 97.3 fl (80.0-96.0); MONO # 0.5 10^3/uL (0.0-0.8); MONO % 8.6 % (2.0-8.0); NEUTROPHILS # 3.4 10^3/uL (1.5-8.5); NEUTROPHILS % 62.3 % (36.0-66.0); PLATELET COUNT, AUTOMATED 169 10^3/uL (150-450); RED BLOOD COUNT 4.76 10^6/uL (4.00-5.40); WHITE BLOOD COUNT 5.4 10^3/uL (4.0-10.0)
[2021-03-04 12:24] LABS: ALBUMIN 3.6 GM/DL (3.2-5.2); ALT/SGPT 24 U/L (12-78); BILIRUBIN,TOTAL 0.9 MG/DL (0.2-1.0); BLOOD UREA NITROGEN 20 MG/DL (7-18); CALCIUM LEVEL 10.2 MG/DL (8.8-10.2); CARBON DIOXIDE LEVEL 29 MEQ/L (21-32); CHLORIDE LEVEL 109 MEQ/L (98-107); CHOLESTEROL LEVEL 120 MG/DL (<200); CHOLESTEROL RISK RATIO 2.352 (<5); CREATININE FOR GFR 0.78 MG/DL (0.55-1.30); FREE T4 0.98 NG/DL (0.76-1.46); GLOMERULAR FILTRATION RATE > 60.0 (>39); GLUCOSE, FASTING 85 MG/DL (70-100); HDL CHOLESTEROL 51 MG/DL (>40); LDL CHOLESTEROL 48 MG/DL (<100); MAGNESIUM LEVEL 2.5 MG/DL (1.8-2.4); NON-HDL-C 69 MG/DL; NT-PRO BNP 478 PG/ML (<125); PHOSPHORUS LEVEL 2.7 MG/DL (2.5-4.9); POTASSIUM SERUM 4.5 MEQ/L (3.5-5.1); SODIUM LEVEL 142 MEQ/L (136-145); TOTAL PROTEIN 6.7 GM/DL (6.4-8.2); TRIGLYCERIDES LEVEL 104 MG/DL (<150)
[2021-03-04 12:28] LABS: HEMOGLOBIN A1c 5.6 %; PTH INTACT 150.8 PG/ML (18.5-88.0)
[2021-03-06 21:07] LABS: INSULIN LEVEL 11.3 uIU/mL (2.6-24.9)
== END ==
LOC: M PLALAB 07:20
PROVIDERS: ATTEND Family Medicine
DX: R73.01 Impaired fasting glucose (principal); I10 Essential (primary) hypertension; E55.9 Vitamin D deficiency, unspecified; D72.820 Lymphocytosis (symptomatic)

== ENCOUNTER → 2021-03-09 | Outpatient (CLI) | payer MEDICARE ==
[2021-03-09 15:46] LABS: BASO % 0.6 % (0.0-1.0); EOS # 0.1 10^3/uL (0.0-0.5); EOS % 2.4 % (0.0-3.0); HEMATOCRIT 46.2 % (36.0-47.0); LYMPH # 1.3 10^3/uL (1.5-5.0); LYMPH % 24.8 % (24.0-44.0); MEAN CORPUSCULAR HEMOGLOBIN 31.6 pg (27.0-33.0); MEAN CORPUSCULAR HGB CONC 32.5 g/dl (32.0-36.5); MEAN CORPUSCULAR VOLUME 97.5 fl (80.0-96.0); MONO # 0.5 10^3/uL (0.0-0.8); MONO % 8.5 % (2.0-8.0); NEUTROPHILS # 3.4 10^3/uL (1.5-8.5); NEUTROPHILS % 63.5 % (36.0-66.0); PLATELET COUNT, AUTOMATED 167 10^3/uL (150-450); RED BLOOD COUNT 4.74 10^6/uL (4.00-5.40); WHITE BLOOD COUNT 5.4 10^3/uL (4.0-10.0)
[2021-03-09 16:07] LABS: C REACTIVE PROTEIN QUANTITATIV < 0.30 MG/DL (0.00-0.30); RHEUMATOID FACTOR QUANT < 10.0 IU/ML (<15.0); TOTAL PROTEIN 6.9 GM/DL (6.4-8.2)
[2021-03-09 16:31] LABS: ERYTHROCYTE SEDIMENTATION RATE 5 mm/hr (0-30)
[2021-03-11 11:21] LABS: ALBUMIN 4.08 GM/DL (3.29-5.55); ALBUMIN % 59.2 % (55.8-66.1); ALPHA-1-GLOBULIN % 4.7 % (2.9-4.9); ALPHA-1-GLOBULINS 0.32 GM/DL (0.17-0.41); ALPHA-2-GLOBULINS 0.69 GM/DL (0.42-0.99); BETA-1-GLOBULINS 0.42 GM/DL (0.28-0.60); BETA-1-GLOBULINS % 6.1 % (4.7-7.2); BETA-2-GLOBULINS 0.39 GM/DL (0.19-0.55); BETA-2-GLOBULINS % 5.6 % (3.2-6.5); GAMMA GLOBULIN % 14.4 % (11.1-18.8); GAMMA GLOBULINS 0.99 GM/DL (0.65-1.58)
[2021-03-17 23:08] LABS: ANA (HEP2) Negative (.); CYCLIC CITRULLINATED PEPTIDE 29 units (0-19); HLA-B27 Negative (.)
== END ==
LOC: M PLALAB 12:43
PROVIDERS: ATTEND Family Medicine
DX: M47.812 Spondylosis without myelopathy or radiculopathy, cervical region (principal)
CPT/HCPCS: 36415; 81374; 84165; 85025; 85652; 86038; 86140; 86200; 86431; G0463

== ENCOUNTER → 2021-03-13 | Outpatient (CLI) | payer MEDICARE ==
--- NOTE | 2021-03-14 16:50 | REP ---
INDICATION: SPONDYLOSIS W/O MYELOPATHY OR RADICULOPATHY, CERVICAL REGION. COMPARISON: None. TECHNIQUE: AP, lateral, flexion/extension, swimmer's, bilateral oblique and open mouth views of the cervical spine. FINDINGS: Advanced multilevel degenerative changes include endplate sclerosis, osteophytosis, disc space narrowing and facet hypertrophy. Alignment is maintained. There is no evidence for acute fracture/compression injury or subluxation. IMPRESSION: Advanced multilevel degenerative spondylosis. No acute fracture/compression injury or subluxation. <Electronically signed by Kapil Douglass > 03/14/21 2029
== END ==
LOC: M PLAIMG 11:11
PROVIDERS: ATTEND Family Medicine
DX: M47.812 Spondylosis without myelopathy or radiculopathy, cervical region (principal); M25.78 Osteophyte, vertebrae

== ENCOUNTER → 2021-04-07 | Outpatient (REF) | payer MEDICARE | LOC: M LAB REF 18:54 | PROVIDERS: ATTEND Family Medicine | DX: D23.5 Other benign neoplasm of skin of trunk (principal) | CPT/HCPCS: 12034; 88304; G0463 ==

== ENCOUNTER → 2021-11-02 | Outpatient (CLI) | payer MEDICARE ==
[~2021-11-02] MED LIST changes: -MOME50SP; +NASO50SP3
[2021-11-02 14:25] LABS: BASO % 0.2 % (0.0-1.0); EOS # 0.1 10^3/uL (0.0-0.5); EOS % 2.1 % (0.0-3.0); HEMATOCRIT 46.5 % (36.0-47.0); HEMOGLOBIN 14.8 g/dl (12.0-15.5); LYMPH # 1.2 10^3/uL (1.5-5.0); LYMPH % 24.8 % (24.0-44.0); MEAN CORPUSCULAR HEMOGLOBIN 31.6 pg (27.0-33.0); MEAN CORPUSCULAR HGB CONC 31.8 g/dl (32.0-36.5); MEAN CORPUSCULAR VOLUME 99.1 fl (80.0-96.0); MONO # 0.5 10^3/uL (0.0-0.8); MONO % 9.9 % (2.0-8.0); NEUTROPHILS % 62.6 % (36.0-66.0); PLATELET COUNT, AUTOMATED 172 10^3/uL (150-450); RED BLOOD COUNT 4.69 10^6/uL (4.00-5.40); WHITE BLOOD COUNT 4.8 10^3/uL (4.0-10.0)
[2021-11-02 15:08] LABS: ALBUMIN 3.7 GM/DL (3.2-5.2); BLOOD UREA NITROGEN 28 MG/DL (7-18); CALCIUM LEVEL 10.3 MG/DL (8.8-10.2); CARBON DIOXIDE LEVEL 27 MEQ/L (21-32); CHLORIDE LEVEL 110 MEQ/L (98-107); CREATININE FOR GFR 0.89 MG/DL (0.55-1.30); FERRITIN 52 NG/ML (8-252); GLOMERULAR FILTRATION RATE > 60.0 (>39); GLUCOSE, FASTING 98 MG/DL (70-100); NT-PRO BNP 488 PG/ML (<450); PHOSPHORUS LEVEL 3.1 MG/DL (2.5-4.9); POTASSIUM SERUM 4.4 MEQ/L (3.5-5.1); PTH INTACT 120.2 PG/ML (18.5-88.0); SODIUM LEVEL 141 MEQ/L (136-145); TOTAL 25(OH) VITAMIN D 27.7 NG/ML (30.0-100.0); VITAMIN B12 LEVEL 641 PG/ML (247-911)
[2021-11-02 16:32] LABS: HEMOGLOBIN A1c 5.3 %
== END ==
LOC: M PLALAB 09:50
PROVIDERS: ATTEND Family Medicine
DX: E83.52 Hypercalcemia (principal); R73.01 Impaired fasting glucose; E53.8 Deficiency of other specified B group vitamins

== ENCOUNTER → 2021-11-09 | Outpatient (CLI) | payer MEDICARE | LOC: M WUC 10:11 | PROVIDERS: ATTEND Family Medicine | DX: M47.814 Spondylosis without myelopathy or radiculopathy, thoracic region (principal); M25.78 Osteophyte, vertebrae; M51.36 Other intervertebral disc degeneration, lumbar region ==

== ENCOUNTER → 2021-11-19 | Outpatient (CLI) | payer MEDICARE | LOC: M WHC 10:11 | PROVIDERS: ATTEND Family Medicine | DX: Z12.31 Encounter for screening mammogram for malignant neoplasm of breast (principal) ==

== ENCOUNTER → 2022-04-07 | Outpatient (CLI) | payer MEDICARE ==
[~2022-04-07] MED LIST changes: +INDA1.253 PO; -INDA125TA PO
[2022-04-07 10:24] LABS: BASO % 0.5 % (0.0-1.0); EOS # 0.1 10^3/uL (0.0-0.5); EOS % 2.3 % (0.0-3.0); HEMATOCRIT 46.9 % (36.0-47.0); HEMOGLOBIN 14.9 g/dl (12.0-15.5); LYMPH # 1.2 10^3/uL (1.5-5.0); LYMPH % 27.9 % (24.0-44.0); MEAN CORPUSCULAR HEMOGLOBIN 31.9 pg (27.0-33.0); MEAN CORPUSCULAR HGB CONC 31.8 g/dl (32.0-36.5); MEAN CORPUSCULAR VOLUME 100.4 fl (80.0-96.0); MONO # 0.4 10^3/uL (0.0-0.8); MONO % 10.2 % (2.0-8.0); NEUTROPHILS # 2.6 10^3/uL (1.5-8.5); NEUTROPHILS % 59.1 % (36.0-66.0); PLATELET COUNT, AUTOMATED 181 10^3/uL (150-450); RED BLOOD COUNT 4.67 10^6/uL (4.00-5.40); WHITE BLOOD COUNT 4.3 10^3/uL (4.0-10.0)
[2022-04-07 11:00] LABS: ERYTHROCYTE SEDIMENTATION RATE 6 mm/hr (0-30)
[2022-04-07 11:16] LABS: ALBUMIN 3.8 GM/DL (3.2-5.2); ALT/SGPT 22 U/L (12-78); BILIRUBIN,TOTAL 0.8 MG/DL (0.2-1.0); BLOOD UREA NITROGEN 20 MG/DL (7-18); CALCIUM LEVEL 10.1 MG/DL (8.8-10.2); CARBON DIOXIDE LEVEL 29 MEQ/L (21-32); CHLORIDE LEVEL 108 MEQ/L (98-107); CREATININE FOR GFR 0.81 MG/DL (0.55-1.30); GLOMERULAR FILTRATION RATE > 60.0 (>39); GLUCOSE, FASTING 104 MG/DL (70-100); MAGNESIUM LEVEL 2.3 MG/DL (1.8-2.4); NT-PRO BNP 270 PG/ML (<450); POTASSIUM SERUM 4.1 MEQ/L (3.5-5.1); SODIUM LEVEL 141 MEQ/L (136-145); TOTAL PROTEIN 6.7 GM/DL (6.4-8.2)
[2022-04-09 00:07] LABS: CYCLIC CITRULLINATED PEPTIDE 11 units (0-19)
== END ==
LOC: M PLALAB 08:19
PROVIDERS: ATTEND Family Medicine
DX: D72.820 Lymphocytosis (symptomatic) (principal); I10 Essential (primary) hypertension; R76.8 Other specified abnormal immunological findings in serum

== ENCOUNTER → 2022-08-17 | Outpatient (CLI) | payer MEDICARE ==
[2022-08-17 13:45] LABS: BASO % 0.7 % (0.0-1.0); EOS # 0.1 10^3/uL (0.0-0.5); EOS % 3.5 % (0.0-3.0); HEMATOCRIT 48.2 % (36.0-47.0); HEMOGLOBIN 15.2 g/dl (12.0-15.5); LYMPH # 1.2 10^3/uL (1.5-5.0); LYMPH % 28.8 % (24.0-44.0); MEAN CORPUSCULAR HEMOGLOBIN 31.7 pg (27.0-33.0); MEAN CORPUSCULAR HGB CONC 31.5 g/dl (32.0-36.5); MEAN CORPUSCULAR VOLUME 100.4 fl (80.0-96.0); MONO # 0.5 10^3/uL (0.0-0.8); MONO % 11.2 % (2.0-8.0); NEUTROPHILS # 2.2 10^3/uL (1.5-8.5); NEUTROPHILS % 55.6 % (36.0-66.0); PLATELET COUNT, AUTOMATED 182 10^3/uL (150-450)
[2022-08-17 13:54] LABS: HEMOGLOBIN A1c 5.3 % (4.0-6.0)
[2022-08-17 19:53] LABS: ALBUMIN 3.9 G/DL (3.2-5.2); ALKALINE PHOSPHATASE 83 U/L (46-116); ALT/SGPT 18 U/L (7.0-40); AST/SGOT 18 U/L (<34); BLOOD UREA NITROGEN 20 MG/DL (9-23); CALCIUM LEVEL 10.5 MG/DL (8.3-10.6); CARBON DIOXIDE LEVEL 30 MMOL/L (20-31); CHLORIDE LEVEL 106 MMOL/L (98-107); CREATININE FOR GFR 0.75 MG/DL (0.55-1.30); GLOMERULAR FILTRATION RATE > 60.0 (>39); GLUCOSE, FASTING 93 MG/DL (74-106); POTASSIUM SERUM 4.3 MMOL/L (3.5-5.1); SODIUM LEVEL 140 MMOL/L (136-145); TOTAL 25(OH) VITAMIN D 29.8 NG/ML (20.0-100.0); TOTAL PROTEIN 6.5 G/DL (5.7-8.2)
== END ==
LOC: M PLALAB 09:23
PROVIDERS: ATTEND Family Medicine
DX: D72.820 Lymphocytosis (symptomatic) (principal); I10 Essential (primary) hypertension; E55.9 Vitamin D deficiency, unspecified; R73.01 Impaired fasting glucose; Z79.899 Other long term (current) drug therapy

== ENCOUNTER → 2022-09-14 | Outpatient (CLI) | payer MEDICARE | LOC: M CARPUL 13:45 | PROVIDERS: ATTEND Family Medicine | DX: I72.2 Aneurysm of renal artery (principal); I51.7 Cardiomegaly ==

== ENCOUNTER → 2022-11-23 | Outpatient (CLI) | payer MEDICARE | LOC: M WHC 10:05 | PROVIDERS: ATTEND Family Medicine | DX: Z12.31 Encounter for screening mammogram for malignant neoplasm of breast (principal); M85.851 Other specified disorders of bone density and structure, right thigh; M85.852 Other specified disorders of bone density and structure, left thigh; Z78.0 Asymptomatic menopausal state ==

== ENCOUNTER → 2023-01-05 | Outpatient (CLI) | payer MEDICARE ==
[2023-01-05 10:50] LABS: BASO % 0.4 % (0.0-1.0); EOS # 0.1 10^3/uL (0.0-0.5); EOS % 2.6 % (0.0-3.0); HEMATOCRIT 45.2 % (36.0-47.0); HEMOGLOBIN 14.6 g/dl (12.0-15.5); LYMPH # 1.3 10^3/uL (1.5-5.0); LYMPH % 27.3 % (24.0-44.0); MEAN CORPUSCULAR HEMOGLOBIN 32.1 pg (27.0-33.0); MEAN CORPUSCULAR HGB CONC 32.3 g/dl (32.0-36.5); MEAN CORPUSCULAR VOLUME 99.3 fl (80.0-96.0); MONO # 0.4 10^3/uL (0.0-0.8); MONO % 8.6 % (2.0-8.0); NEUTROPHILS % 60.7 % (36.0-66.0); PLATELET COUNT, AUTOMATED 178 10^3/uL (150-450); RED BLOOD COUNT 4.55 10^6/uL (4.00-5.40); WHITE BLOOD COUNT 4.9 10^3/uL (4.0-10.0)
[2023-01-05 11:17] LABS: ALBUMIN 3.8 G/DL (3.2-5.2); ALKALINE PHOSPHATASE 85 U/L (46-116); ALT/SGPT < 9 U/L (7.0-40); AST/SGOT < 8 U/L (<34); BILIRUBIN,TOTAL 0.8 MG/DL (0.3-1.2); BLOOD UREA NITROGEN 18 MG/DL (9-23); CALCIUM LEVEL 10.1 MG/DL (8.3-10.6); CARBON DIOXIDE LEVEL 30 MMOL/L (20-31); CHLORIDE LEVEL 107 MMOL/L (98-107); CHOLESTEROL LEVEL 106 MG/DL (<200); CHOLESTEROL RISK RATIO 2.37 (<5); CREATININE FOR GFR 0.71 MG/DL (0.55-1.30); GLOMERULAR FILTRATION RATE > 60.0 (>39); GLUCOSE, FASTING 89 MG/DL (74-106); HDL CHOLESTEROL 44.6 MG/DL (>40); LDL CHOLESTEROL 43.2 MG/DL (<100); NON-HDL-C 61.4 MG/DL; POTASSIUM SERUM 4.1 MMOL/L (3.5-5.1); SODIUM LEVEL 141 MMOL/L (136-145); TOTAL PROTEIN 6.4 G/DL (5.7-8.2); TRIGLYCERIDES LEVEL 91 MG/DL (<150)
[2023-01-05 11:18] LABS: FREE T4 0.99 NG/DL (0.89-1.76)
[2023-01-05 11:19] LABS: THYROID STIMULATING HORMONE 1.228 uIU/ML (0.55-4.78); TOTAL 25(OH) VITAMIN D 39.5 NG/ML (20.0-100.0)
== END ==
LOC: M PLALAB 07:35
PROVIDERS: ATTEND Family Medicine
DX: I10 Essential (primary) hypertension (principal); Z79.899 Other long term (current) drug therapy

== ENCOUNTER → 2023-01-10 | Outpatient (REF) | payer MEDICARE | LOC: M SFHCPLAZ 15:26 | PROVIDERS: ATTEND Family Medicine | DX: I10 Essential (primary) hypertension (principal); R73.01 Impaired fasting glucose; D72.820 Lymphocytosis (symptomatic); E78.5 Hyperlipidemia, unspecified ==

== ENCOUNTER → 2023-02-11 | Outpatient (CLI) | payer MEDICARE | LOC: M CARPUL 11:22 | PROVIDERS: ATTEND Family Medicine | DX: I77.810 Thoracic aortic ectasia (principal) ==

== ENCOUNTER → 2023-05-27 | Outpatient (REF) | payer MEDICARE ==
[~2023-05-27] MED LIST changes: -LUNE3TAB36 PO; +LUNE3TAB50 PO
== END ==
LOC: M SFHCPLAZ 14:00
PROVIDERS: ATTEND Family Medicine
DX: I10 Essential (primary) hypertension (principal); E78.5 Hyperlipidemia, unspecified; E55.9 Vitamin D deficiency, unspecified; E53.8 Deficiency of other specified B group vitamins

== ENCOUNTER → 2023-11-24 | Outpatient (CLI) | payer MEDICARE ==
[2023-11-24 14:58] LABS: BASO % 0.2 % (0.0-1.0); EOS # 0.1 10^3/uL (0.0-0.5); EOS % 2.5 % (0.0-3.0); HEMATOCRIT 46.1 % (36.0-47.0); HEMOGLOBIN 14.5 g/dl (12.0-15.5); LYMPH # 1.5 10^3/uL (1.5-5.0); LYMPH % 30.8 % (24.0-44.0); MEAN CORPUSCULAR HEMOGLOBIN 31.7 pg (27.0-33.0); MEAN CORPUSCULAR HGB CONC 31.5 g/dl (32.0-36.5); MEAN CORPUSCULAR VOLUME 100.7 fl (80.0-96.0); MONO # 0.5 10^3/uL (0.0-0.8); MONO % 10.3 % (2.0-8.0); NEUTROPHILS # 2.7 10^3/uL (1.5-8.5); PLATELET COUNT, AUTOMATED 180 10^3/uL (150-450); RED BLOOD COUNT 4.58 10^6/uL (4.00-5.40); WHITE BLOOD COUNT 4.8 10^3/uL (4.0-10.0)
[2023-11-24 15:37] LABS: FREE T4 1.2 NG/DL (0.89-1.76); PTH INTACT 122.3 PG/ML (18.5-88.0); THYROID STIMULATING HORMONE 0.754 uIU/ML (0.55-4.78)
[2023-11-24 15:38] LABS: TOTAL 25(OH) VITAMIN D 27.6 NG/ML (20.0-100.0)
== END ==
LOC: M PLALAB 09:48
PROVIDERS: ATTEND Family Medicine
DX: I11.0 Hypertensive heart disease with heart failure (principal); I50.32 Chronic diastolic (congestive) heart failure; E78.5 Hyperlipidemia, unspecified; E55.9 Vitamin D deficiency, unspecified; E53.8 Deficiency of other specified B group vitamins

== ENCOUNTER → 2023-12-14 | Outpatient (CLI) | payer MEDICARE | LOC: M WHC 13:50 | PROVIDERS: ATTEND Family Medicine | DX: Z12.31 Encounter for screening mammogram for malignant neoplasm of breast (principal) ==

== ENCOUNTER → 2024-03-29 | Outpatient (CLI) | payer MEDICARE ==
[2024-03-29 11:15] LABS: BASO % 0.3 % (0.0-1.0); EOS # 0.1 10^3/uL (0.0-0.5); EOS % 1.5 % (0.0-3.0); HEMATOCRIT 45.5 % (36.0-47.0); HEMOGLOBIN 14.3 g/dl (12.0-15.5); LYMPH # 1.4 10^3/uL (1.5-5.0); MEAN CORPUSCULAR HEMOGLOBIN 31.9 pg (27.0-33.0); MEAN CORPUSCULAR HGB CONC 31.4 g/dl (32.0-36.5); MEAN CORPUSCULAR VOLUME 101.6 fl (80.0-96.0); MONO # 0.6 10^3/uL (0.0-0.8); MONO % 8.6 % (2.0-8.0); NEUTROPHILS # 4.7 10^3/uL (1.5-8.5); NEUTROPHILS % 69.5 % (36.0-66.0); PLATELET COUNT, AUTOMATED 187 10^3/uL (150-450); RED BLOOD COUNT 4.48 10^6/uL (4.00-5.40); WHITE BLOOD COUNT 6.8 10^3/uL (4.0-10.0)
[2024-03-29 11:33] LABS: TOTAL 25(OH) VITAMIN D 28.1 NG/ML (20.0-100.0)
[2024-03-29 11:34] LABS: FERRITIN 93.2 NG/ML (7.3-270.7)
[2024-03-29 11:35] LABS: THYROID STIMULATING HORMONE 1.162 uIU/ML (0.55-4.78)
[2024-03-29 11:36] LABS: FREE T4 1.22 NG/DL (0.89-1.76)
[2024-03-29 11:45] LABS: PTH INTACT 129.5 PG/ML (18.5-88.0)
== END ==
LOC: M PLALAB 07:55
PROVIDERS: ATTEND Family Medicine
DX: I10 Essential (primary) hypertension (principal); D50.9 Iron deficiency anemia, unspecified; Z79.899 Other long term (current) drug therapy; I50.32 Chronic diastolic (congestive) heart failure

== ENCOUNTER → 2024-04-11 | Outpatient (CLI) | payer MEDICARE | LOC: M PLAIMG 11:04 | PROVIDERS: ATTEND Family Medicine | DX: M75.41 Impingement syndrome of right shoulder (principal); M47.816 Spondylosis without myelopathy or radiculopathy, lumbar region ==

== ENCOUNTER → 2024-08-02 | Outpatient (CLI) | payer MEDICARE ==
[2024-08-02 14:47] LABS: BASO % 0.6 % (0.0-1.0); EOS # 0.1 10^3/uL (0.0-0.5); EOS % 2.7 % (0.0-3.0); HEMATOCRIT 44.8 % (36.0-47.0); HEMOGLOBIN 14.2 g/dl (12.0-15.5); LYMPH % 19.2 % (24.0-44.0); MEAN CORPUSCULAR HEMOGLOBIN 32.3 pg (27.0-33.0); MEAN CORPUSCULAR HGB CONC 31.7 g/dl (32.0-36.5); MEAN CORPUSCULAR VOLUME 102.1 fl (80.0-96.0); MONO # 0.4 10^3/uL (0.0-0.8); MONO % 8.6 % (2.0-8.0); NEUTROPHILS # 3.5 10^3/uL (1.5-8.5); NEUTROPHILS % 68.7 % (36.0-66.0); PLATELET COUNT, AUTOMATED 172 10^3/uL (150-450); RED BLOOD COUNT 4.39 10^6/uL (4.00-5.40); WHITE BLOOD COUNT 5.1 10^3/uL (4.0-10.0)
[2024-08-02 14:52] LABS: ERYTHROCYTE SEDIMENTATION RATE 12 mm/hr (0-30)
[2024-08-02 14:53] LABS: TOTAL 25(OH) VITAMIN D 30.8 NG/ML (20.0-100.0)
[2024-08-02 14:54] LABS: C REACTIVE PROTEIN QUANTITATIV < 0.50 MG/DL (<1.0)
[2024-08-02 14:55] LABS: ALBUMIN 3.6 G/DL (3.2-5.2); ALKALINE PHOSPHATASE 86 U/L (35-104); ALT/SGPT 17 U/L (7.0-40); AST/SGOT 16 U/L (<34); BLOOD UREA NITROGEN 18 MG/DL (9-23); CALCIUM LEVEL 10.4 MG/DL (8.3-10.6); CARBON DIOXIDE LEVEL 30 MMOL/L (20-31); CHLORIDE LEVEL 108 MMOL/L (98-107); CHOLESTEROL LEVEL 128 MG/DL (<200); CHOLESTEROL RISK RATIO 2.37 (<5); GLOMERULAR FILTRATION RATE > 60.0 (>39); GLUCOSE, FASTING 90 MG/DL (74-106); LDL CHOLESTEROL 56.8 MG/DL (<100); MAGNESIUM LEVEL 2.2 MG/DL (1.8-2.4); POTASSIUM SERUM 4.1 MMOL/L (3.5-5.1); SODIUM LEVEL 143 MMOL/L (136-145); TOTAL PROTEIN 6.7 G/DL (5.7-8.2); TRIGLYCERIDES LEVEL 86 MG/DL (<150)
[2024-08-02 17:54] LABS: PTH INTACT 124.2 PG/ML (18.5-88.0)
== END ==
LOC: M PLALAB 10:54
PROVIDERS: ATTEND Family Medicine
DX: E55.9 Vitamin D deficiency, unspecified (principal); E53.8 Deficiency of other specified B group vitamins; I50.32 Chronic diastolic (congestive) heart failure; M75.41 Impingement syndrome of right shoulder

== ENCOUNTER → 2024-08-08 | Outpatient (CLI) | payer MEDICARE | LOC: M PLAIMG 13:58 | PROVIDERS: ATTEND Pain Medicine Interventional Pain Medicine | DX: M48.061 Spinal stenosis, lumbar region without neurogenic claudication (principal); M47.816 Spondylosis without myelopathy or radiculopathy, lumbar region; M47.817 Spondylosis without myelopathy or radiculopathy, lumbosacral region ==

== ENCOUNTER → 2024-10-24 | Outpatient (CLI) | payer MEDICARE ==
[~2024-10-24] MED LIST changes: +ISOVUE-300 61% 100ML VIAL As Ordered ONE; +LIDOCAINE 1% MDV 20ML VIAL As Ordered ONE; +TRIAMCINOLONE ACETONIDE SUSP 40MG/ML 1ML VIAL As Ordered ONE
== END ==
LOC: M RAD 14:50
PROVIDERS: ATTEND Family Medicine
DX: M19.019 Primary osteoarthritis, unspecified shoulder (principal)
CPT/HCPCS: 20610; 77002; J3301; Q9967

== ENCOUNTER → 2024-12-27 | Outpatient (CLI) | payer MEDICARE ==
[~2024-12-27] MED LIST changes: -ISOVUE-300 61% 100ML VIAL As Ordered ONE; -LIDOCAINE 1% MDV 20ML VIAL As Ordered ONE; -TRIAMCINOLONE ACETONIDE SUSP 40MG/ML 1ML VIAL As Ordered ONE
== END ==
LOC: M WHC 13:26
PROVIDERS: ATTEND Family Medicine
DX: Z12.31 Encounter for screening mammogram for malignant neoplasm of breast (principal)